=== PATIENT | female | born 1960 | race Caucasian/White ===

== ENCOUNTER → 2016-07-01 | Outpatient (CLI) | payer MEDICARE, MEDICAID ==
[~2016-07-01] MED LIST: AMARYL4 MG PO; COUMADIN4 MG PO; INDOCIN SR75 MG PO; JANTOVEN4 M1 PO; JANTOVEN4 MG PO; LANTUS100 U/ML SC; LASIX20 MG PO; LIDEX 0.05% CRE15 GM T; MEVACOR40 MG PO; MORPHINE 5 MG/10 ML INTRATHEC; MS CONTIN30 MG PO; PREDNISONE20 M1 PO; PRILOSEC10 MG PO; PRINIVIL20 MG PO; REQUIP4 MG PO; SEROQUEL300 MG PO; TEMAZEPAM30 MG PO; VICO75300 PO; VICODIN 5/500 505 M1 PO; ZOLPIDEM10 M1 PO
== END | disposition home or self-care (01) ==
LOC: CT 08:52
DX: J18.9 Pneumonia, unspecified organism (principal); I31.3 Pericardial effusion (noninflammatory); R06.02 Shortness of breath; R05 Cough; R09.89 Other specified symptoms and signs involving the circulatory and respiratory systems; E11.9 Type 2 diabetes mellitus without complications

== ENCOUNTER → 2016-07-21 | Outpatient (CLI) | payer MEDICARE, MEDICAID | END | disposition home or self-care (01) | LOC: RAD 11:10 | DX: J90 Pleural effusion, not elsewhere classified (principal); J18.8 Other pneumonia, unspecified organism; I10 Essential (primary) hypertension; E11.9 Type 2 diabetes mellitus without complications; J45.909 Unspecified asthma, uncomplicated; Z87.891 Personal history of nicotine dependence ==

== ENCOUNTER → 2017-02-12 | Outpatient (CLI) | payer MEDICARE, MEDICAID | END | disposition home or self-care (01) | LOC: MRI 07:55 | DX: M19.072 Primary osteoarthritis, left ankle and foot (principal); M25.572 Pain in left ankle and joints of left foot; M77.52 Other enthesopathy of left foot and ankle; Z91.81 History of falling ==

== ENCOUNTER → 2017-10-07 | Outpatient (CLI) | payer MEDICARE, MEDICAID | END | disposition home or self-care (01) | LOC: MRI 09:41 | DX: S96.812A Strain of other specified muscles and tendons at ankle and foot level, left foot, initial encounter (principal); M72.2 Plantar fascial fibromatosis; X58.XXXA Exposure to other specified factors, initial encounter; Z91.81 History of falling; Y93.89 Activity, other specified; Y92.89 Other specified places as the place of occurrence of the external cause; Y99.8 Other external cause status ==

== ENCOUNTER 2018-08-15 11:28 | Inpatient (IN) | payer MEDICARE ==
[~2018-08-15] VITALS: Ht 144.7 cm; Wt 90.5 kg
--- NOTE | ~2018-08-15 | CON ---
[place], [place] REPORT OF CONSULTATION [id number] UNIT #: [id number] ROOM: 407 DOCTOR: FELIX ELLISON MD BIRTHDATE: [birth year] DOS: 08/16/2018 HISTORY OF PRESENT ILLNESS: This is a 58-year-old patient with Jean tolerance syndrome, factor V Leiden mutation, essential hypertension, type 2 diabetes mellitus, short stature, COPD, who has had respiratory failure, major depression and chronic pain. She has chronic back pain as well. She had a hip and knee replacements done in the remote past. She smoked for 35 years, had quit 5 years ago. She does not use alcoholic beverages. Her father had a heart attack and 2 brothers had heart attack and in their late 30s. I was asked to see her because of slightly increased troponin I level. She came here because of 2 weeks of cough and shortness of breath that was getting worse. She has been coughing, but no expectoration. There is no chest pain or palpitations. She has not passed out and has had mild swelling in the legs in the past. She had no chills, fever or shivering. Appetite is fine. No abdominal pain, nausea or vomiting. HOME MEDICATIONS: Include [place] t.i.d., morphine 30 mg daily and Farxiga 0.5 daily, glimepiride 4 mg daily, lisinopril 20 daily, lovastatin 40 daily, omeprazole 20 daily, Seroquel 600 mg at bedtime, Requip 4 mg daily, Demadex 10 mg p.r.n., Jantoven 8 mg daily and Tresiba 80 units subcutaneously daily. PHYSICAL EXAMINATION: GENERAL: This reveals a patient who is very short, wide neck, alert, oriented, comfortable. She is afebrile. There is no thyromegaly or finger clubbing. VITAL SIGNS: Pulse is regular at 88 beats per minute, blood pressure 99/79. NECK: JVP is normal. There is no carotid bruit. CARDIOVASCULAR: There is no cardiomegaly. LUNGS: Auscultation reveals a loud A2 and there appeared to be a systolic click over the aortic area. EXTREMITIES: There is trace pretibial edema. Pedal pulses are palpable. RESPIRATORY: She has oxygen on and is not tachypneic. Percussion note is normal. Auscultation reveals moderately reduced by breath sounds bilaterally and some rhonchi and some crackles are present. ABDOMEN: Normal bowel sounds. Liver is not enlarged and somewhat protuberant. LABORATORY DATA: An ECG showed normal sinus rhythm with right ventricular hypertrophy and T-wave inversion in V1 to V5 and right axis deviation. Troponin I level has been 0.097, 0.083, 0.086 and in 2003, troponin level was 0.1 x 3. Chest x-ray demonstrated no obvious abnormality. CT scan of the chest demonstrated small pleural effusions, no pneumonia. Sodium 144, potassium 3.6. Normal liver enzymes. Hemoglobin is 10.4 g/dL, MCV is 96. [place], [place] REPORT OF CONSULTATION NAME: HAILEE JARA UNIT #: [id number] ROOM: [facility] DOCTOR: FELIX ELLISON MD BIRTHDATE: [birth year] IMPRESSION: This patient has acute exacerbation of chronic obstructive pulmonary disease and is short of breath. Troponin I level is slightly increased and she had a similar level in 2003 and a stress test a couple of years ago was unremarkable. Right ventricular hypertrophy seemed to be present on the ECG and this obviously raises the possibility of pulmonary hypertension in this patient who has a loud pulmonic component of the aortic sound. My other thought is that there is a possibility of bicuspid aortic valve. She a very strong family history of premature coronary artery disease. I think in the setting of abnormal ECG, slight increased troponin level. It may be a good idea to perform a Lexiscan Cardiolite study. I will review the echocardiogram. I thank you for this consult. FELIX ELLISON MD CM:CONSTR:REPORT OF CONSULTATION 1705 08/17/18 0159 interface RASHMI NICHOLE MD
--- NOTE | ~2018-08-15 | PR ---
[place], [place] PROGRESS NOTE NAME: HAILEE JARA [facility] #: [id number] UNIT #: [id number] ROOM: 407 DOCTOR: FELIX ELLISON MD BIRTHDATE: [birth year] DOS: 08/22/2018 SUBJECTIVE: She has a dry cough, but no chest pain or palpitations. She has been on antibiotics and warfarin was held 2 days ago. She has been eating fine and has been ambulating in the room. PHYSICAL EXAMINATION: GENERAL: This is a patient who is pleasant, alert. Her complexion is fine. VITAL SIGNS: Temperature is normal, pulse is 100 and regular, blood pressure 106/66. NECK: JVP is normal. LUNGS: She has some rhonchi in both lungs with reduced breath sounds. EXTREMITIES: No edema in the lower extremities. INR is 6.9 and it was 3.1 on the . She has significant pulmonary hypertension with a hypokinetic right ventricle. RECOMMENDATIONS: Vitamin K 2.5 mg p.o. should be given and INR should be done tomorrow. If it is less than 5, I will go ahead and do transesophageal echocardiogram on this patient. I discussed this with her nurse. FELIX ELLISON MD CM:PNTRANS 1648 [id number] FELIX ELLISON MD 08/23/18 0031 interface
--- NOTE | ~2018-08-15 | PR ---
[place], [place] PROGRESS NOTE NAME: HAILEE JARA [facility] #: [id number] UNIT #: [id number] ROOM: 407 DOCTOR: FELIX ELLISON MD BIRTHDATE: [birth year] DOS: 08/20/2018 SUBJECTIVE: She feels fairly well. She is not dizzy or weak. She ate fine. She had not been walking that much; however, she has low back pain. She has a harsh cough but without expectoration. PHYSICAL EXAMINATION: GENERAL: The patient is afebrile. VITAL SIGNS: Pulse is 96 regular, blood pressure 109/68. NECK: Normal JVP. EXTREMITIES: No edema in lower extremities. LUNGS: Breath sounds are diminished with some adventitious sounds. LABORATORY DATA: An echo had demonstrated moderately dilated right ventricle and right atrial enlargement, significant pulmonary hypertension. IMPRESSION: This patient has significant pulmonary hypertension and dilated right ventricle and dilated right atrium. She has had Jean syndrome. I think a transesophageal echocardiogram needs to be performed and has been scheduled for the of this month. FELIX ELLISON MD CM:PNTRANS [phone] FELIX ELLISON MD 08/21/18 171 interface
--- NOTE | ~2018-08-15 | PR ---
[place], [place] PROGRESS NOTE NAME: HAILEE JARA [facility] #: [id number] UNIT #: [id number] ROOM: 407 DOCTOR: RASHMI NICHOLE MD BIRTHDATE: [birth year] DOS: LEXISCAN STRESS TEST REASON FOR TESTING AND EVALUATION: Shortness of breath and elevated troponin. PROCEDURE: After explaining procedure and obtaining consent, the patient was subjected to adenosine infusion of 0.4 mg. Resting heart rate was 97 with a blood pressure 120/60. EKG showed sinus rhythm. During the infusion, patient did not have any complaints other than some mild shortness of breath. When the infusion was over, the patient was injected with Cardiolite and stress images were taken. ASSESSMENT AND PLAN: Lexiscan stress test without any ST-T wave changes or arrhythmias. Cardiolite images pending. RASHMI NICHOLE MD CM:PNTRANS 0823 0909 RASHMI NICHOLE MD 08/20/18 0758 SHITAL [email or web address].TM
--- NOTE | ~2018-08-15 | DS ---
[place], [place] DISCHARGE SUMMARY NAME: HAILEE JARA [facility] #: [id number] UNIT #: [id number] ROOM: 407 DOCTOR: RASHMI NICHOLE MD BIRTHDATE: [birth year] DOS: 08/24/2018 DIAGNOSES: 1. Congestive heart failure. 2. Chronic obstructive pulmonary disease exacerbation. 3. Acute respiratory failure. The patient to be placed on oxygen. 4. Adult failure to thrive. 5. Secondary pulmonary hypertension from chronic obstructive pulmonary disease. 6. Moderate tricuspid regurgitation. 7. Type 2 diabetes mellitus, insulin-dependent. 8. Jean syndrome. 9. Chronic pain from primary osteoarthritis, bilateral knee and hip replacements. MEDICATIONS ON DISCHARGE: Ceftin 250 twice daily for 5 days; prednisone twice a day for 5 days; lisinopril, which is decreased to 10 mg daily; glimepiride 4 mg daily; omeprazole 20 daily; Seroquel 600 at bedtime; [place] 7.5 t.i.d. p.r.n.; Requip 4 mg at bedtime; warfarin 8 mg daily; Farxiga 5 mg daily; morphine ER 30 mg daily; lovastatin 40 daily; torsemide 10 daily; insulin 80 units subcutaneous daily. HOSPITAL COURSE: This patient is a 58-year-old right-handed, very well known to us, comes in with complaints of difficulty breathing. Please refer to H and P for details. She was diagnosed with CHF and was admitted. After admission, the patient had a Cardiology consultation, echocardiogram, rule out CA protocol was ordered. The patient had some minimal complaints of precordial chest pain. The stress test was performed because of multiple risk factors. This has come back negative. Echocardiogram showed moderate TR and pulmonary hypertension because of a history of transesophageal echocardiogram was recommended, which was performed by Dr. Mcclain to rule out other congenital abnormalities, none were found. The patient has improved and continues to participate in PT, OT. Social service has been consulted and the patient initially agreed to go to SNF, but since the patient has improved significantly, we could discharge her to home with therapy. Assessment for home O2 was done and the patient will qualify for oxygen 2 liters continuous at home. The patient's repeat chest x-ray is pending today, but clinically her CHF is cleared. Blood sugars have been running on the low side, most likely from a stricter diet here. She will continue her home dose of insulin when she is discharged along with the home medications. The only medication that has cut back is the lisinopril dosage because of low blood pressure. [place], [place] DISCHARGE SUMMARY NAME: HAILEE JARA UNIT #: [id number] ROOM: [facility] DOCTOR: RASHMI NICHOLE MD BIRTHDATE: [birth year] RASHMI NICHOLE MD CM:ISABEL 2 RASHMI NICHOLE MD 08/24/1853 interface
--- NOTE | ~2018-08-15 | ST ---
[place], [place] EXERCISE STRESS TEST REPORT NAME: HAILEE JARA [facility] #: [id number] UNIT #: [id number] ROOM: 407 DOCTOR: RASHMI NICHOLE MD BIRTHDATE: [birth year] DOS: 08/17/2018 LEXISCAN STRESS TEST REASON FOR TESTING AND EVALUATION: Shortness of breath and elevated troponin. PROCEDURE: After explaining procedure and obtaining consent, the patient was injected with regadenoson of 0.4 mg. Resting heart rate was 97 with a blood pressure 120/60. EKG showed sinus rhythm. During the infusion, patient did not have any complaints other than some mild shortness of breath. When the infusion was over, the patient was injected with Cardiolite and stress images were taken. ASSESSMENT AND PLAN: Lexiscan stress test without any ST-T wave changes or arrhythmias. Cardiolite images pending. RASHMI NICHOLE MD CM:STRESS:EXERCISE STRESS TEST REPORT 0823 0909 RASHMI NICHOLE MD
--- NOTE | ~2018-08-15 | PR ---
[place], [place] PROGRESS NOTE NAME: HAILEE JARA [facility] #: [id number] UNIT #: [id number] ROOM: 407 DOCTOR: RASHMI NICHOLE MD BIRTHDATE: [birth year] DOS: 08/17/2018 SUBJECTIVE: The patient is here for a stress test this morning. Appreciate Dr. Mcclain's input. She continues to have a cough and feels tired. OBJECTIVE: GENERAL: She is awake, alert and oriented, mild respiratory distress. VITAL SIGNS: Blood pressure is 98/62, pulse of 100, respirations 20 and temperature 97.9. LUNGS: Diminished breath sounds, scattered wheezes and rhonchi. HEART: Regular. ABDOMEN: Obese, soft. EXTREMITIES: Without any edema. ASSESSMENT AND PLAN: 1. Cough with shortness of breath. CT of the chest showing atelectasis, possibly pneumonia with acute exacerbation of chronic obstructive pulmonary disease. The patient will be placed on IV steroids and breathing treatments in addition to the antibiotics that have been ordered. 2. Elevated troponin with risk factors. She is getting a stress test done this morning. 3. Factor V Leiden mutation, on long-term use of anticoagulants. 4. Type 2 diabetes mellitus. Blood sugars are controlled. We just need to make sure that the steroids do not cause further increase in blood sugars. She is already on insulin and oral antidiabetics. RASHMI NICHOLE MD CM:PNTRANS 0815 0856 RASHMI NICHOLE MD 08/27/18 0842 interface
--- NOTE | ~2018-08-15 | PR ---
[place], [place] PROGRESS NOTE NAME: HAILEE JARA [facility] #: [id number] UNIT #: [id number] ROOM: 407 DOCTOR: HAKEEM VERMA MD BIRTHDATE: [birth year] DOS: 08/18/2018 SUBJECTIVE: The patient with cough and shortness of breath, improving with treatment. OBJECTIVE: GENERAL APPEARANCE: The patient is alert and oriented x 3, in no visible distress. VITAL SIGNS: Blood pressure 110/65, heart rate 98 beats per minute, breathing 18 times per minute, afebrile. HEENT AND NECK: Exam within normal limits. CARDIOVASCULAR SYSTEM: Heart rate is regular in rate and rhythm. S1 and S2 normally audible. LUNGS: Some decreased breath sounds on auscultation. ABDOMEN: Soft, nontender. No obvious organomegaly. Bowel sounds are present. EXTREMITIES: Without significant cyanosis or edema. IMPRESSION: 1. The patient with pneumonia, being treated with antibiotics. 2. Acute exacerbation of chronic obstructive pulmonary disease, treated with corticosteroids, oxygen, and antibiotic. 3. Factor V Leiden mutation, patient on anticoagulation. 4. Type 2 diabetes mellitus. Blood sugars being monitored and treated. The patient remains on insulin. Blood sugars are well controlled and generally ranging between 100-160. HAKEEM VERMA MD CM:PNTRANS 1819 1210 HAKEEM VERMA MD 08/19/18 1517 interface
--- NOTE | ~2018-08-15 | PR ---
[place], [place] PROGRESS NOTE NAME: HAILEE JARA [facility] #: [id number] UNIT #: [id number] ROOM: 407 DOCTOR: FELIX ELLISON MD BIRTHDATE: [birth year] DOS: 08/19/2018 SUBJECTIVE: This patient was admitted with chest pain and shortness of breath. She had quit smoking about 5 years ago. She had a Lexiscan Cardiolite study, which did not demonstrate any ischemia. An echocardiogram was performed during this hospitalization; it demonstrated LV ejection fraction was 65% and grade 1 diastolic dysfunction of the left ventricle. She had severely dilated right ventricle and it was hypokinetic and moderately dilated right ventricle and she had moderate tricuspid regurgitation and pulmonary artery systolic pressure was greater than 60 mm, i.e., severe pulmonary hypertension. IMPRESSION: 1. This patient does not have any significant coronary artery disease, chest pain is noncardiac. 2. She has severe pulmonary hypertension with a hypokinetic right ventricle and moderate tricuspid regurgitation. This patient has Jean syndrome and may have some underlying congenital heart issue. RECOMMENDATIONS: A transesophageal echocardiogram should be considered in this patient and I discussed this procedure with her. She is agreeable to have this done. Hopefully this can be done as an outpatient. FELIX ELLISON MD CM:PNTRANS 1043 FELIX ELLISON MD 08/20/180 interface
--- NOTE | ~2018-08-15 | PR ---
[place], [place] PROGRESS NOTE NAME: HAILEE JARA [facility] #: [id number] UNIT #: [id number] ROOM: 407 DOCTOR: RASHMI NICHOLE MD BIRTHDATE: [birth year] DOS: SUBJECTIVE: The patient is resting comfortably, has not been able to go off the oxygen. OBJECTIVE: VITAL SIGNS: Blood pressure is 122/78, pulse of 86, respirations 16, temperature 97.4. LUNGS: Diminished breath sounds, scattered wheezes. HEART: Regular. ABDOMEN: Obese. EXTREMITIES: Without any edema. ASSESSMENT AND PLAN: 1. Congestive heart failure, improving slowly. Chest x-ray shows resolution. The patient does not have any swelling in the leg. She does have significant pulmonary hypertension. 2. Chest pain, ruled out for myocardial infarction with a negative stress test. 3. Acute exacerbation of chronic obstructive pulmonary disease. The patient continues to have bronchospasm. We will continue steroids. We will do a home O2 assessment. 4. Type 2 diabetes mellitus. Blood sugars are fairly controlled. RASHMI NICHOLE MD CM:PNTRANS 0857 1506 RASHMI NICHOLE MD 08/19/18 1507 interface
--- NOTE | ~2018-08-15 | PR ---
[place], [place] PROGRESS NOTE NAME: HAILEE JARA [facility] #: [id number] UNIT #: [id number] ROOM: 407 DOCTOR: FELIX ELLISON MD BIRTHDATE: [birth year] DOS: 08/21/2018 SUBJECTIVE: She has a little cough and somewhat wheezing, no shortness of breath at rest. She has not had any palpitation, dizziness or swelling of the lower extremity. She has been eating well. OBJECTIVE: GENERAL: She is alert. VITAL SIGNS: Temperature is normal, pulse is 100 and regular, blood pressure 105/54. NECK: JVP is normal. AJR is negative. CARDIOVASCULAR: Auscultation reveals loud P2, no obvious murmurs. IMPRESSION: This patient has significant pulmonary hypertension with dilated right ventricle and right atrium. Transesophageal echocardiogram will be performed to better elucidate the cardiac structures. FELIX ELLISON MD CM:PNTRANS 1821 1452 FELIX ELLISON MD 08/22/18 1451 interface
--- NOTE | ~2018-08-15 | WRIGHTHP ---
[place], [place] PATIENT HISTORY AND PHYSICAL EXAM NAME: HAILEE JARA [facility] #: [id number] UNIT #: [id number] ROOM: 407 DOCTOR: RASHMI NICHOLE MD BIRTHDATE: [birth year] DOS: 08/16/2018 HISTORY OF PRESENT ILLNESS: This patient is very well known to us, comes in with complaints of chest discomfort and shortness of breath. The patient states that she has been sick for about 2 weeks with a cough and is unable to cough up any mucus. She denies having any fever, chills, continued to be short of breath, so finally decided to come into the Emergency Room where she was evaluated and was admitted. She feels bloated and has not been eating and drinking much for the last couple of days also. PAST MEDICAL HISTORY: Significant for: 1. COPD. 2. History of respiratory failure. She is no longer oxygen-dependent. 3. Jean syndrome. 4. Factor V Leiden mutation. 5. Hypertension. 6. Type 2 diabetes mellitus. 7. Major depression, mild. 8. Chronic pain from osteoarthritis. 9. History of hip and knee replacements. MEDICATIONS: Medications that she is currently on are morphine 30 daily, [place] t.i.d. p.r.n. 7.5, Farxiga 5 daily, glimepiride 4 mg daily, lisinopril 20 daily, lovastatin 40 daily, omeprazole 20 daily, Seroquel 600 at bedtime, Requip 4 mg daily, Demadex 10 daily p.r.n., Jantoven 8 mg daily, Tresiba 80 units subcutaneous daily. SOCIAL HISTORY: History of smoking in the past. PHYSICAL EXAMINATION: GENERAL: She is awake and alert and oriented. VITAL SIGNS: Blood pressure is 93/68, pulse of 101, respirations 20, temperature 97.4, very moist sounding cough. LUNGS: Diminished breath sounds, scattered wheezes heard. HEART: Regular. ABDOMEN: Obese, soft, nontender. EXTREMITIES: Without any edema. ASSESSMENT AND PLAN: 1. The patient admitted with shortness of breath and chest pain, rule out myocardial infarction protocol, showed slight elevation in troponin. The patient will have a Cardiology consultation. Obtain echocardiogram ordered. Had a stress test 2 years ago, which was negative. She does have risk factors being a diabetic. 2. Cough. Moist sounding cough with shortness of breath and bronchospasm and underlying respiratory infection, which is most likely responsible for shortness of breath and chest pain. A CT of the chest will be ordered. The patient is placed on IV antibiotics. 3. Factor V Leiden mutation, on Coumadin. Protime subtherapeutic. Extra dose of Coumadin was given. [place], [place] PATIENT HISTORY AND PHYSICAL EXAM NAME: HAILEE JARA UNIT #: [id number] ROOM: [facility] DOCTOR: RASHMI NICHOLE MD BIRTHDATE: [birth year] 4. Type 2 diabetes mellitus. Blood sugars to be checked twice daily, coverage scale ordered. RASHMI NICHOLE MD CM:HISPHYS:PATIENT HISTORY AND PHYSICAL EXAMINATION 2 9 RASHMI NICHOLE MD 08/16/18899 interface
--- NOTE | ~2018-08-15 | PR ---
[place], [place] PROGRESS NOTE NAME: HAILEE JARA [facility] #: [id number] UNIT #: [id number] ROOM: 407 DOCTOR: NELSON STOUT MD BIRTHDATE: [birth year] DOS: 08/24/2018 SUBJECTIVE: A 58-year-old patient underwent transesophageal echo by Dr. Mcclain yesterday. Basically, LEVON was done, showed the left ventricle was normal, right ventricle was moderately dilated, right ventricular hypertrophy, right ventricle was moderately hypokinetic, left ventricular size was normal. Labs are all within normal limits. Ejection fraction 65-70%. Aortic valve was normal in size. Mild tricuspid regurgitation. The patient is doing quite well from the cardiac point of view at this point. Blood pressure is 189/59, heart rate is 98, sinus tachycardia, somewhat feeling better, hemodynamically stable much more stable. REVIEW OF SYSTEMS: A 6-8 systems reviewed as per HPI. OBJECTIVE: VITAL SIGNS: Blood pressure is stable. NECK: Supple, no JVD. LUNGS: Diminished air entry. HEART: Sounds are regular and tachycardic. ABDOMEN: Soft, nontender. NEUROLOGIC: Stable. LABORATORY DATA: Reveal hemoglobin 10.9, hematocrit 39.5. Electrolytes are normal. Calcium is 8.2. IMPRESSION AND PLAN: The patient with acute exacerbation of chronic obstructive pulmonary disease, right ventricular dilatation - probably related to that, history of hypertension, hypotension, diabetes mellitus, Jean syndrome. LEVON showed no significant valvular abnormalities. Continue the Coumadin, keep the INR around 2-3 and we will followup. NELSON STOUT MD CM:PNTRANS 0736 1409 NELSON STOUT MD 08/24/18 1408 interface
--- NOTE | ~2018-08-15 | PR ---
[place], [place] PROGRESS NOTE NAME: HAILEE JARA [facility] #: [id number] UNIT #: [id number] ROOM: 407 DOCTOR: RASHMI NICHOLE MD BIRTHDATE: [birth year] DOS: SUBJECTIVE: The patient is sitting up in chair, not having any complaints, did walk with therapy to the end of the jimenez. She did have oxygen on and did not have any desaturation, but did desaturate off the oxygen. OBJECTIVE: VITAL SIGNS: Graphic trend shows a blood pressure of 118/59, pulse of 115, respirations 18, temperature 97.8. LUNGS: Clear. HEART: Regular. ABDOMEN: Soft. EXTREMITIES: Without any edema. ASSESSMENT AND PLAN: 1. Congestive heart failure, diastolic, acute, resolved. 2. Chronic obstructive pulmonary disease exacerbation, improvement in the bronchospasm. We will discontinue IV steroids and place the patient on p.o. 3. Benign hypertension with pressure is running on the low side. We will cut back on the lisinopril dosage. 4. Chronic respiratory failure, oxygen supplementation has been ordered. 5. Adult failure to thrive. PT, OT will be consulted with visiting nurses for home. 6. Pulmonary hypertension from underlying COPD. The patient was a heavy smoker. 7. Moderate tricuspid regurg was noticed, but no other pathology seen. Discussed with Dr. Silver and Dr. Mcclain. PLAN: Maybe is to do right heart catheterization as an outpatient later on. RASHMI NICHOLE MD CM:PNTRANS [id number] RASHMI NICHOLE MD 08/24/18 1322 interface
--- NOTE | ~2018-08-15 | PR ---
[place], [place] PROGRESS NOTE NAME: HAILEE JARA [facility] #: [id number] UNIT #: [id number] ROOM: 407 DOCTOR: HAKEEM VERMA MD BIRTHDATE: [birth year] DOS: 08/22/2018 SUBJECTIVE: The patient is feeling well, but her blood pressure and blood sugar are both on the lower side, apparently not eating as well. OBJECTIVE: VITAL SIGNS: Blood pressure 106/66, going as low as 77 systolic, heart rate of 106 beats per minute, breathing 20 times per minute, afebrile. GENERAL APPEARANCE: The patient is alert and oriented x 3, in no visible distress. Obesity and generalized weakness. HEENT AND NECK: Exam within normal limits. CARDIOVASCULAR SYSTEM: Heart rate is regular in rate and rhythm. S1 and S2 normally audible. LUNGS: Clear to auscultation. ABDOMEN: Soft, nontender. No obvious organomegaly. Bowel sounds are present. EXTREMITIES: Without significant cyanosis or edema. IMPRESSION: 1. Cardiology workup with LEVON tomorrow by Dr. Mcclain. 2. Acute exacerbation of chronic obstructive pulmonary disease, being treated with bronchodilators, Solu-Medrol, antibiotic with slow improvement. 3. Benign essential hypertension with low blood pressures. The patient was hypotensive, was being treated with lisinopril. 4. Hypotension to be treated with stopping lisinopril. 5. Type 2 diabetes mellitus with hypoglycemia. I am cutting down her Lantus insulin from 80 to 40 units only. 6. Patient has Jean syndrome, getting a LEVON performed. The patient had a tricuspid valve regurgitation and pulmonary hypertension. Dr. Mcclain, the molding supervisor is following. 7. Elevated INR. Coumadin is on hold and protimes are being monitored daily. No signs of any bleeding. HAKEEM VERMA MD CM:PNTRANS [phone] HAKEEM VERMA MD 08/23/18 0828 interface
--- NOTE | ~2018-08-15 | PR ---
[place], [place] PROGRESS NOTE NAME: HAILEE JARA [facility] #: [id number] UNIT #: [id number] ROOM: 407 DOCTOR: HAKEEM VERMA MD BIRTHDATE: [birth year] DOS: 08/21/2018 SUBJECTIVE: The patient is still short of breath, although says breathing is somewhat improving. OBJECTIVE: GENERAL APPEARANCE: The patient is alert and oriented x 3, in no visible distress. VITAL SIGNS: Blood pressure 110/80, heart rate of 92 beats per minute, breathing 18-20 times per minute, afebrile. Obesity. HEENT AND NECK: Exam within normal limits. CARDIOVASCULAR SYSTEM: Heart rate is regular in rate and rhythm. S1 and S2 normally audible. LUNGS: Somewhat decreased breath sounds all over and slight wheezing. ABDOMEN: Soft, nontender. No obvious organomegaly. Bowel sounds are present. EXTREMITIES: Without significant cyanosis or edema. IMPRESSION: 1. Acute exacerbation of chronic obstructive pulmonary disease being treated with Solu-Medrol, antibiotics, bronchodilators with slow improvement. 2. Acute hypoxemic respiratory failure, being treated as mentioned above, the patient on oxygen. 3. Adult failure to thrive. The patient is waiting to go to rehab. 4. Type 2 diabetes mellitus. Blood sugars are being monitored and controlled. 5. The patient with Jean syndrome and echocardiogram showing tricuspid valve regurgitation and pulmonary hypertension. Dr. Mcclain, the retail assistant is following. 6. INR elevated to 5.7. Coumadin on hold, protime is being monitored daily. HAKEEM VERMA MD CM:PNTRANS [phone] HAKEEM VERMA MD 08/22/18 1309 interface
--- NOTE | ~2018-08-15 | PR ---
[place], [place] PROGRESS NOTE NAME: HAILEE JARA [facility] #: [id number] UNIT #: [id number] ROOM: 407 DOCTOR: RASHMI NICHOLE MD BIRTHDATE: [birth year] DOS: SUBJECTIVE: The patient had a very rough night because her blood sugars were dropping. OBJECTIVE: GENERAL: This morning, she is in bed, in no distress. VITAL SIGNS: Blood pressure is 108/68, pulse of 116, respirations 18, temperature 98.3. LUNGS: Diminished breath sounds, a few scattered rhonchi which is considerably better than Thursday. HEART: Tachycardic. ABDOMEN: Obese. EXTREMITIES: Without any edema. ASSESSMENT AND PLAN: 1. Pulmonary hypertension with tricuspid regurgitation, awaiting a transesophageal echocardiogram today. 2. Acute exacerbation of chronic obstructive pulmonary disease, on maximal dose of medications with improvement. 3. Adult failure to thrive. The patient did not want to go to a rehab facility. She would rather go home. 4. Type 2 diabetes mellitus. Blood sugars on the low side. We will cut back on the dosage of medications. 5. Benign hypertension, controlled. RASHMI NICHOLE MD CM:PNTRANS [id number] RASHMI NICHOLE MD 08/23/18 1318 interface
--- NOTE | ~2018-08-15 | PR ---
[place], [place] PROGRESS NOTE NAME: HAILEE JARA [facility] #: [id number] UNIT #: [id number] ROOM: 407 DOCTOR: FELIX ELLISON MD BIRTHDATE: [birth year] DOS: 08/23/2018 SUBJECTIVE: The patient had a transesophageal echocardiogram performed. It demonstrated a normal aortic valve, which was trileaflet. Normal ascending aorta and normal size descending thoracic aorta with minimal atherosclerotic abnormality. Tricuspid valve is normal, mild tricuspid regurgitation was present. There was mild right atrial enlargement and moderate right ventricle enlargement with hypokinesia. Mild pulmonic regurgitation was also seen. FELIX ELLISON MD CM:PNTRANS [id number] FELIX ELLISON MD 08/24/18 0319 interface
--- NOTE | ~2018-08-15 | PR ---
[place], [place] PROGRESS NOTE NAME: HAILEE JARA [facility] #: [id number] UNIT #: [id number] ROOM: 407 DOCTOR: RASHMI NICHOLE MD BIRTHDATE: [birth year] DOS: SUBJECTIVE: The patient tried to do an assessment of home O2, but she was really short of breath and was unable to ambulate. This morning, she is feeling fairly good, does not have any complaints, still has a moist sounding cough. OBJECTIVE: VITAL SIGNS: Blood pressure is 140/78, pulse of 102, respirations 18, and temperature 97.7. LUNGS: Diminished breath sounds, scattered wheezes and rhonchi. HEART: Regular. ABDOMEN: Obese, soft. EXTREMITIES: Without any edema. ASSESSMENT AND PLAN: 1. Acute exacerbation of chronic obstructive pulmonary disease. Continue to have bronchospasm. She is on breathing treatments. Increase the dose of the IV Solu-Medrol and add Pulmicort. 2. Acute hypoxic respiratory failure. Continue oxygen supplementation, will require oxygen as an outpatient, but before that she will be sent to a rehab. 3. Malaise with adult failure to thrive, will require short-term placement to rehab. The patient is agreeable. Social service has been consulted. 4. Type 2 diabetes mellitus. Blood sugars controlled. 5. Jean syndrome with echocardiogram showing tricuspid regurg and pulmonary hypertension. Dr. Mcclain suggested a LEVON. We will ask him whether this could be performed on Thursday before the patient can be discharged to a correction. RASHMI NICHOLE MD CM:PNTRANS [phone] RASHMI NICHOLE MD 08/20/18 1416 interface
--- NOTE | ~2018-08-15 | EKG ---
[place], [place] ELECTROCARDIOGRAM REPORT NAME: HAILEE JARA UNIT #: [id number] ROOM: 407 DOCTOR: SHEREE DRAFT REPORT BIRTHDATE: [birth year] [facility] Test Date: 2018-08-15 Test Time: 12:16:21 Pat Name: HAILEE JARA Department: Room: 407 Gender: F Control Operator Flow Coat: Mariela Saha : 1960 Requested By: NAYE ALVARADO Order Number: [id number] Reading MD: Te Mcclain MD Measurements Intervals [place] Rate: 103 P: 41 CA: 164 QRS: 157 QRSD: 92 T: -16 QT: 387 QTc: 507 Interpretive Statements Sinus tachycardia RVH with secondary repolarization abnrm Borderline prolonged QT interval Baseline wander in lead(s) II,III,aVR,aVF Electronically Signed On 08-17-2018 15:01:48 PST by Te Mcclain MD CM:EKGRPT:ELECTROCARDIOGRAM REPORT [id number] NAYE NAIDU DRAFT REPORT NAYE ALVARADO DO
--- NOTE | ~2018-08-15 | PR ---
[place], [place] PROGRESS NOTE NAME: HAILEE JARA [facility] #: [id number] UNIT #: [id number] ROOM: 407 DOCTOR: FELIX ELLISON MD BIRTHDATE: [birth year] DOS: 08/17/2018 SUBJECTIVE: She is doing fine. She has no chest pain or breathing difficulty. She has chronic back pain that limits her mobility. She had a Lexiscan Cardiolite study done today and I will review the images. She also is to have an echocardiogram. IMPRESSION: The patient has chest pain with many risk factors for coronary artery disease. She has ruled out for an acute myocardial infarction. Images will be reviewed. FELIX ELLISON MD CM:PNTRANS [phone] FELIX ELLISON MD 08/18/18 0308 interface
[~2018-08-15 11:28] MED LIST changes: +NORCO 7.5-3251 EACH PO; -PRILOSEC10 MG PO; +PRILOSEC20 M1 PO; +PRINIVIL20 M1 PO; -PRINIVIL20 MG PO; -VICO75300 PO
[2018-08-15 11:32] VITALS: BP 99/55
[2018-08-15 12:02] VITALS: BP 99/77
--- NOTE | 2018-08-15 12:22 | NUR ---
PATIENT STATES SHE WAS NEVER TAKEN OFF OXYGEN AT NIGHT SHE JUST FELT THAT SHE DIDN'T NEED IT ANYMORE BECAUSE SHE WAS A SHALLOW BREATHER
[2018-08-15 12:32] LABS: BASO % 0.6 % (0.0-1.0); HEMATOCRIT 34.4 % (37.0-47.0); HEMOGLOBIN 10.4 g/dl (12.0-16.0); LYMPH # 0.5 10*3/uL (1.3-4.4); MEAN CELL VOLUME 96.1 fl (81.0-99.0); MEAN CORPUSCULAR HGB 29.1 pg (27.0-31.0); MEAN CORPUSCULAR HGB CONC 30.2 g/dl (33.0-37.0); MEAN PLATELET VOLUME 11.7 fl (9.6-12.3); MONO # 0.3 10*3/uL (0.1-1.0); NEUT # 2.8 10*3/uL (2.3-7.9); NEUT % 77.8 % (47.0-73.0); PLATELET COUNT AUTOMATED 109 10*3/uL (130-400); RED BLOOD COUNT 3.58 10*6/uL (4.10-5.10); RED CELL DISTRI WIDTH 15.4 % (0-14.5); WHITE BLOOD COUNT 3.6 10*3/uL (4.8-10.8)
--- NOTE | 2018-08-15 12:37 | NUR ---
PT WITH SAO2 @ 84-86% RA AFTER AEROSOL TX AND O2 3L VIA NC REAPPLIED AND DR MEHTA NOTIFIED.
[2018-08-15 12:44] LABS: ALBUMIN 3.2 gm/dl (3.1-4.5); ALKALINE PHOSPHATASE 81 U/L (45-117); BUN 22 mg/dl (7-24); CHLORIDE 109 mmol/L (98-107); CREATININE 0.88 mg/dL (0.55-1.02); POTASSIUM 3.6 mmol/L (3.5-5.1); SGOT/AST 17 IU/L (3-35); SGPT/ALT 28 U/L (12-78); SODIUM 144 mmol/L (136-145); TOTAL PROTEIN 7.3 gm/dL (6.4-8.2)
[2018-08-15 13:07] LABS: ABG BASE EXCESS 0.4 mmol/L (-2.0-2.0); ABG HCO3 25.1 mmol/l (22-26); ABG O2 SATURATION 95.6 % (95-97); ARTERIAL BLOOD GAS PCO2 42.7 mmHg (35-45); ARTERIAL BLOOD GAS PH 7.385 (7.35-7.45); ARTERIAL BLOOD GAS PO2 84.1 mmHg (80-90)
[2018-08-15 13:09] LABS: INTERNATIONAL NORM RATIO 1.7 (2.0-3.5)
[2018-08-15 13:30] LABS: BILIRUBIN NEGATIVE (NEGATIVE); BLOOD 2+ (NEGATIVE); CLARITY SL CLOUDY (CLEAR); COLOR YELLOW (YELLOW); GLUCOSE 3+ (NEGATIVE); KETONE NEGATIVE (NEGATIVE); LEUKO ESTERASE NEGATIVE (NEGATIVE); NITRITE NEGATIVE (NEGATIVE)
[2018-08-15 13:38] LABS: BACTERIA 1+; EPITHELIAL CELLS 21-30; RBC 16-20 rbc/hpf (0-2)
[2018-08-15] MEDS ORDERED: TRESIBA FL100 UNIT/1 SQ (13:38)
[2018-08-15] MEDS ORDERED: FARXIGA5 M1 PO (13:40)
--- NOTE | 2018-08-15 13:48 | NUR ---
PT REMAINS W/O ACUTE DISTRESS NOTED AWAITING ALL RESULTS FOR ADDITIONAL PLAN OF CARE,FAMILY @ BEDSIDE,SAFETY PRECAUTIONS INTACT AND CALL LIGHT WITHIN REACH. NO ADDITIONAL COMPLAINTS VOICED.
[2018-08-15 13:52] VITALS: BP 96/59
--- NOTE | 2018-08-15 13:58 | NUR ---
KERRY @ 0.[address] MEHTA NOTIFIED.
[2018-08-15] MEDS ORDERED: AMBIEN10 M1 PO (13:59)
--- NOTE | 2018-08-15 14:55 | NUR ---
A 58, admitted to , under the services of RASHMI White MD with a diagnosis of CHF. Chief complaint is SHORTNESS OF BREATH. Patient arrived via stretcher from ER. Monitor applied. Initial assessment completed. Vital signs taken and recorded. RASHMI WHITE MD notified of admission to the unit. Orders received. See assessment for past medical history, medications and allergies. Patient and/or family oriented to unit. [address] visitation policy reviewed. Clothing/patient valuable form completed. CHADD CUELLAR
[2018-08-15] MEDS ORDERED: MORPHINE SULFAT30 M9 PO (15:27)
[2018-08-15] MEDS ORDERED: LOVASTATIN40 MG PO (15:30)
[2018-08-15] MEDS ORDERED: DEMADEX10 M1 PO (15:31)
[2018-08-15] MEDS ORDERED: TRESIBA FL200 UNIT/1 SQ (15:32)
[2018-08-15 16:00] VITALS: BP 105/78
--- NOTE | 2018-08-15 16:10 | NUR ---
DR ELLISON CALLED VIA ANSWERING SERVICE, NO ANSWER/NO VOICEMAIL. ANSWERING SERVICE STATES SHE WILL CONTINUE TO CALL HIM.
--- NOTE | 2018-08-15 16:43 | NUR ---
DR ELLISON NOTIFIED OF CONSULT. HE WILL SEE HER TOMORROW
[2018-08-15 20:00] VITALS: BP 124/69
--- NOTE | 2018-08-15 20:02 | NUR ---
DR. NICHOLE WAS NOTIFIED OF PTS CRITICAL MARCO TROP OF 0.083.
[2018-08-16] VITALS: BP 135/92
[2018-08-16 08:00] VITALS: BP 93/68; BP 98/64
--- NOTE | 2018-08-16 09:56 | NUR ---
echo at bedside
--- NOTE | 2018-08-16 10:30 | NUR ---
Assistant Front End Manager in to see patient. She is currently on the BSC and request CM come back at a later time. Will follow up at a later time.
[2018-08-16 12:00] VITALS: BP 93/77
--- NOTE | 2018-08-16 14:10 | NUR ---
Brim Shaper in to see patient. She is currently getting a bed bath. Will follow up at a later time.
--- NOTE | 2018-08-16 14:35 | NUR ---
Wireline Supervisor in to talk to patient. Patient states lives at home with her sister. There are basement steps in the home. Physician: Dr. Oksana Gusman Pharmacy: [facility] Home health services: none Patient's level of ADLs: MINIMAL ASSIST Patient has working utilities: yes DME: cane, walker Follow-up physician's appointment after d/c: she prefers to make her own follow up appt after discharge Does patient want to access PORTAL?: no Discharge plan discussed with patient. She lives at home with her sister. She is independent in her ADLs and ambulates with either a cane or a walker. She would like a new walker as the one she currently has doesn't like to fold up anymore. Discussed home health care services and she denies any home needs at this time. She has had [facility] previously. When medically stable she will be discharged to home. LUCINDA GLASS
[2018-08-16 16:00] VITALS: BP 99/79
--- NOTE | 2018-08-16 17:31 | NUR ---
PT HAD LOW BLOOD SUGAR, GIVEN JUICE, HAS DINNER ORDERED
[2018-08-16 20:00] VITALS: BP 116/68
--- NOTE | 2018-08-16 22:15 | NUR ---
NORCO EFFECTIVE FOR 8 OUT OF 10 PAIN IN HIP. PT RESTING COMFORTABLY.
[2018-08-17] VITALS: BP 98/62
--- NOTE | 2018-08-17 06:34 | NUR ---
50% DEXTROSE 25G IV GIVEN FOR LOW BLOOD SUGAR OF 64. WILL REASSESS.
--- NOTE | 2018-08-17 08:22 | NUR ---
Metal Precision Machine Assembler in to see patient. She is currently not in her room. Will follow up at a later time.
--- NOTE | 2018-08-17 08:23 | NUR ---
INFORMED CONSENT SIGNED FOR LEXISCAN STRESS TEST WITH DR. NICHOLE. RESTING EKG NSR WITH PVC, HR 97, BP 120/60. PULSE OX 97% AND RHONCHI NOTED BILATERALLY WITH EXSPIRATORY WHEEZES. COMPLETED ONE MINUTE OF LEXISCAN PROTOCOL RECEIVING LEXISCAN 0.4MG OVER 10 SECONDS. NO ARRHYTHMIAS OR ST CHANGES NOTED. PT C/O SOB. LAST RECOVERY HR 99, BP 118/60. WAITING NUCLEAR SCANNINGIN STABLE CONDITION.
[2018-08-17 09:36] VITALS: BP 175/80
--- NOTE | 2018-08-17 09:49 | NUR ---
RETURN FROM STRESS TEST
[2018-08-17 10:54] VITALS: BP 114/78
--- NOTE | 2018-08-17 10:55 | NUR ---
sao2 100 % on 3 liters nc, no shortness of breath noted, decreased oxygen to 2 liters
--- NOTE | 2018-08-17 11:25 | NUR ---
IV IN RIGHT FA LEAKING, RED AT SITE. RIGHT IV D/C LEFT FA #22 STARTED ON FIRST ATTEMPT, GOOD BLOOD RETURN, FLUSHES WELL
[2018-08-17 12:00] VITALS: BP 103/50
[2018-08-17 16:00] VITALS: BP 121/63
[2018-08-17 20:00] VITALS: BP 107/62
--- NOTE | 2018-08-17 22:05 | NUR ---
SCHEDULED NORCO GIVEN FOR 6/10 PAIN IN LEFT HIP. WILL REASSESS.
--- NOTE | 2018-08-17 22:45 | NUR ---
NORCO EFFECTIVE FOR PAIN. PATIENT RESTING COMFORTABLY.
[2018-08-18] VITALS: BP 106/65
--- NOTE | 2018-08-18 03:23 | NUR ---
24 HR chart check completed.
[2018-08-18 08:00] VITALS: BP 110/58
--- NOTE | 2018-08-18 09:00 | NUR ---
Copying Machine Repairer in to see patient. No new needs or request at this time. She denies any home needs. When medically stable she will be discharged to home.
[2018-08-18 12:00] VITALS: BP 103/66
[2018-08-18 16:00] VITALS: BP 110/65
[2018-08-18 20:00] VITALS: BP 106/58
[2018-08-19] VITALS: BP 129/65
[2018-08-19 06:46] LABS: INTERNATIONAL NORM RATIO 3.1 (2.0-3.5)
[2018-08-19 08:00] VITALS: BP 122/78
[2018-08-19 12:00] VITALS: BP 105/68
--- NOTE | 2018-08-19 13:47 | NUR ---
PULSE OX ON R/A AT REST 87%, PULSE OX ON 2LM AT REST 96%. PT. AMBULATED APPRX. 80 FEET, PULSE OX 93 ON 2L WITH AMBULATION. . PT. WAS UNABLE TO WALK ANY LONGER DUE TO SOB. PT. NEEDED TO STOP AND REST DURING THIS WALK. RN AND CASE MANAGEMENT NOTIFIED. RECOVERY PULSE OX 94 ON 2L AT REST. B/P 105/68 PRIOR TO AMBULATION AND 99/62. HEART RATE 105 AND 106 .
[2018-08-19 16:00] VITALS: BP 106/62
[2018-08-19 16:55] VITALS: BP 106/64
--- NOTE | 2018-08-19 18:18 | NUR ---
Pt states she had a small emesis after being nauseated for awhile. States she also started having diarrhea. States this is the first time she has been nauseated or had diarrhea since admission. States she feels like her blood sugar may be low. Checked BSG and it was 101. Called Dr. Mae and notified of pt statements. Dr. Mae states he is here and will put in orders for zofran.
--- NOTE | 2018-08-19 18:57 | NUR ---
Medicated with zofran iv per prn order.
[2018-08-19 20:00] VITALS: BP 110/65
--- NOTE | 2018-08-19 21:08 | NUR ---
DR VERMA NOTIFIED PT C/O DIARRHEA WITH 3 EPISODES IN 2 HOURS. NEW ORDERS REC'D.
[2018-08-20] VITALS: BP 97/50
[2018-08-20 08:00] VITALS: BP 140/78
--- NOTE | 2018-08-20 09:00 | NUR ---
Prevention Specialist in to see patient. Discussed short term SNF and she is agreeable. When given a list of facilities she chose [facility]. information systems planner notified.
--- NOTE | 2018-08-20 11:20 | NUR ---
Occupational Therapy evaluation completed on 4 with full eval to follow. Precautions include fall risk,new ww use,IV UE,new O2 use,patient is moderate complexity level 12131 via chart review, testing and evaluation. Recommend OT per POC and SNF upon d/c to enable return home at indep level. Thank you for this referral. Andreea Cisneros OTR/l
[2018-08-20 12:00] VITALS: BP 109/68
--- NOTE | 2018-08-20 12:13 | NUR ---
PHYSICAL THERAPY PAtient evaluiated on 4, full evaluation to follow. Continue with PT as per plan of care with fall, new 02, min (A) and acute debility prcautions. Will require SNF. PAtient is moderate complexity via chart review, tests and evaluation: 19529, Thank you for this referral. Rachel García,PT
--- NOTE | 2018-08-20 14:07 | NUR ---
Patient requesting a referral to [facility], contacted facility and faxed referral. Waiting on review/acceptance. Will require precert.
--- NOTE | 2018-08-20 14:57 | NUR ---
SPOKE TO DR ELLISON REGARDING LEVON FOR THURSDAY. HE STATED TO PUT ORDERS IN FOR LEVON THURSDAY AT 1100. SPOKE TO HARI AND SHE SAID IT SHOULD NOT BE A PROBLEM
[2018-08-20 16:00] VITALS: BP 96/60
[2018-08-20 20:00] VITALS: BP 109/68
--- NOTE | 2018-08-20 20:00 | NUR ---
AAOX3 RESTING IN BED WITH HOB ELEVATED. 02 INTACT AT 2LPM VIA N/C; PULSE OX 97%. PT. VOICES NO C/O AT THIS TIME. NO DISTRESS NOTED. CALL LIGHT WITHIN REACH.
--- NOTE | 2018-08-20 22:00 | NUR ---
TOOK PO MEDICATIONS WITHOUT DIFFICULTY. BLOOD SUGAR 85; NO COVERAGE REQUIRED. CALL LIGHT WITHIN REACH.
[2018-08-21] VITALS: BP 106/59
--- NOTE | 2018-08-21 06:30 | NUR ---
BLOOD SUGAR 95; NO COVERAGE REQUIRED.
[2018-08-21 07:20] LABS: BASO % 0.2 % (0.0-1.0); HEMATOCRIT 40.7 % (37.0-47.0); HEMOGLOBIN 12.5 g/dl (12.0-16.0); LYMPH # 0.5 10*3/uL (1.3-4.4); LYMPH % 9.2 % (27.0-41.0); MEAN CELL VOLUME 92.7 fl (81.0-99.0); MEAN CORPUSCULAR HGB 28.5 pg (27.0-31.0); MEAN CORPUSCULAR HGB CONC 30.7 g/dl (33.0-37.0); MEAN PLATELET VOLUME 10.7 fl (9.6-12.3); MONO # 0.3 10*3/uL (0.1-1.0); MONO % 6.4 % (3.0-9.0); NEUT # 4.2 10*3/uL (2.3-7.9); NEUT % 83.4 % (47.0-73.0); PLATELET COUNT AUTOMATED 146 10*3/uL (130-400); RED BLOOD COUNT 4.39 10*6/uL (4.10-5.10); RED CELL DISTRI WIDTH 14.9 % (0-14.5)
[2018-08-21 07:48] LABS: BUN 22 mg/dl (7-24); CHLORIDE 103 mmol/L (98-107); POTASSIUM 3.9 mmol/L (3.5-5.1); SODIUM 136 mmol/L (136-145)
[2018-08-21 07:49] LABS: CREATININE 0.65 mg/dL (0.55-1.02)
[2018-08-21 08:00] VITALS: BP 110/80
[2018-08-21 08:08] LABS: INTERNATIONAL NORM RATIO 5.7 (2.0-3.5)
--- NOTE | 2018-08-21 08:41 | NUR ---
NOTIFIED REGARDING CRITICAL PT/INR. HOLD COUMADIN AT THIS TIME.
[2018-08-21 12:00] VITALS: BP 98/65
--- NOTE | 2018-08-21 14:52 | NUR ---
IN TO SEE PATIENT.
[2018-08-21 16:00] VITALS: BP 105/54
--- NOTE | 2018-08-21 19:02 | NUR ---
SITTING UP ON SIDE OF BED AT THIS TIME. NO NEEDS OR CONCERNS. O2 VIA NC IN USE. BED IS IN LOWEST POSITION WITH WHEELS LOCKED. CALL LIGHT IS WITHIN REACH. ENCOURAGED TO USE CALL LIGHT FOR NEEDS.
[2018-08-21 20:00] VITALS: BP 92/59
[2018-08-21 20:12] VITALS: BP 102/54
[2018-08-22] VITALS: BP 123/74
--- NOTE | 2018-08-22 01:07 | NUR ---
RESTING IN BED WITH EYES CLOSED. RESPIRATIONS ARE EASY AND REGULAR. NO DISTRESS IS NOTED. O2 VIA NC IN USE. CALL LIGHT IS WITHIN REACH. WILL CONTINUE TO MONITOR.
[2018-08-22 08:00] VITALS: BP 106/66
[2018-08-22 13:52] LABS: INTERNATIONAL NORM RATIO 6.9 (2.0-3.5)
--- NOTE | 2018-08-22 13:58 | NUR ---
NOTIFIED REGARDING CRITICAL PT/INR. NEW ORDERS RECEIVED.
[2018-08-22 16:00] VITALS: BP 78/52
--- NOTE | 2018-08-22 16:19 | NUR ---
BLOOD SUGAR READING CRITICAL LOW. STAT REFLEX ORDERED. CRACKERS AND JUICE PROVIDED.
--- NOTE | 2018-08-22 16:41 | NUR ---
IN TO SEE PATIENT.
--- NOTE | 2018-08-22 17:00 | NUR ---
UNABLE TO REASSESS PT AT THIS TIME FOR HOME O2. BP AND GLUCOSE LOW. RNS AT BEDSIDE.
--- NOTE | 2018-08-22 17:36 | NUR ---
IN TO SEE PATIENT. BP READING 78/52 MANUALLY. PT ASYMPTOMATIC. WILL RECHECK BP. NEW ORDERS TO BE ENTERED PER PHYSICIAN.
[2018-08-22 18:23] VITALS: BP 100/64
--- NOTE | 2018-08-22 18:31 | NUR ---
PT RESTING QUIETLY IN BED. RESPIRATIONS EASY, REGULAR. 02 IN USE. ATE DINNER. BP 100/64. WILL CONTINUE TO MONITOR. CALL LIGHT WITHIN REACH.
--- NOTE | 2018-08-22 19:02 | NUR ---
PATIENT RESTING IN BED RECIEVING BREATHING TREATMENT AT THIS TIME. CURRENTLY DENIES ANY NEEDS OR COMPLAINTS. BED IS IN LOWEST POSTIION WITH WHEELS LOCKED. CALL LIGHT IS WITHIN REACH. ENCOURAGED TO USE CALL LIGHT FOR NEEDS. WILL CONTINUE TO MONITOR.
[2018-08-22 20:00] VITALS: BP 112/72
--- NOTE | 2018-08-22 22:17 | NUR ---
SPOKE WITH DR VERMA REGARDING PATIENT COMPLAINTS OF ABDOMINAL CRAMPING AND NAUSEA UNRELIEVED BY ZOFRAN. PER DR VERMA PLACE ORDERS FOR BENTYL 20MG PO QID PRN. ORDERS WERE READ BACK TO DR VERMA AND VERIFIED.
--- NOTE | 2018-08-22 22:28 | NUR ---
PRN BENTYL GIVEN FOR COMPLAINTS OF ABDOMINAL CRAMPING. WILL EVALUATE EFFECTIVENESS. PRN DEXTROSE ALSO GIVEN AT THIS TIME FOR BLOOD GLUCOSE OF 68. PATIENT HAS LITTLE PO INTAKE D/T ABDOMINAL CRAMPING AND NPO AFTER MIDNIGHT. WILL RECHECK BLOOD GLUCOSE.
--- NOTE | 2018-08-22 23:35 | NUR ---
PER PATIENT ABDOMINAL CRAMPING HAS IMPROVED. NO FUTHER NEEDS. BLOOD GLUCOSE AT THIS TIME 119. WILL CONTINUE TO MONITOR.
[2018-08-23] VITALS (8 sets, daily range): BP systolic 84–115; BP diastolic 37–72
[2018-08-23 06:29] LABS: INTERNATIONAL NORM RATIO 3.5 (2.0-3.5)
--- NOTE | 2018-08-23 09:00 | NUR ---
Alloy Weigher in to see patient. No new needs or request at this time. When medically stable and auth is received she will be discharged to [facility]. data recovery planner following.
--- NOTE | 2018-08-23 09:15 | NUR ---
OT NOTE Pt was seen this A.M. 1:1 for 20 minute OT session. Upon arrival pt was supine in bed, pt identified by name and and had complaints of increased fatigue. Pt presented to therapy with continous 1L-O2 via NC which she remained on throughout entire session. Pt transferred supine to sit EOB with Marquez for assist with UB. While sitting EOB requested for to erin B socks. Pt stated she was unable to bend forward and complete. Educated pt on compensatory technique of bringing her leg over knee or up to bed level and dressing there. Pt was able to complete with LLE by bringing up to bed level with SBA however with the RLE pt required Marquez due to limited ROM in R knee from "previous knee replacement" pt stated. Sit to stand completed from bed level with Marquez for UE support. While standing pt donned gown with Marquez and had one LOB that occured backwards from being unsteady that was corrected with Marquez. Functional mobility completed into the bathroom with Marquez COMIC ILLUSTRATOR, there she transferred on/off standard commode with CGA and use of grab bar for UE support. Throughout pt was educated on breathing techniques to avoid becoming SOB. Pt returned to the EOB where she doffed gown while standing with Marquez. Pt transferred sit to supine with Marquez. There she was left with call light in hand, tray table in place, and phone in reach. Continue with rec D/C plan to SNF. NICKI Kemp/Kaitlynn
--- NOTE | 2018-08-23 09:30 | NUR ---
PHYSICAL THERAPY Patient presented to therapy in supine with head of bed slightly elevated. Patient is on 1 liters of spO2 via nasal canula. Patient agrees to therapy session. Patient was identified by name and . Patient performed supine to sitting at EOB transfer with MIN A X 1. Patient transferred STS with MIN A X 1. Patient ambulated with W/W and MIN A X 1 for 50' x 1 with no LOB and minimal SOB. Patient sat on EOB and performed seated bilateral LE ther ex 2 x 10 reps each in all planes of movement for strengthening the LEs in order to improve patient's functional mobility. Patient transferred back to supine in bed with MIN A X 1. Patient was left in supine in bed wit hhead of bed elevated, call light within reach, and bed alarm activated. CACERES witness to bed alarm being activated. Patient was 1:1 with this QUALITY ASSURANCE ANALYST for 21 minutes total. KAYLA DE OLIVEIRA QUALITY ASSURANCE ANALYST
--- NOTE | 2018-08-23 10:17 | NUR ---
PATIENT OFF FLOOR FOR LEVON
--- NOTE | 2018-08-23 10:36 | NUR ---
Patient updated clinicals, PT/OT notes faxed to Marilu at [facility] for precert. Waiting for auth.
--- NOTE | 2018-08-23 13:48 | NUR ---
PHYSICAL THERAPY Patient just came back from medical procedure and is waiting on her lunch. Patient wants therapy to comeback later. Will check back later today or on a later date. KAYLA DE OLIVEIRA DIRECTOR ECONOMIC
--- NOTE | 2018-08-23 15:34 | NUR ---
PHYSICAL THERAPY Patient presented to therapy in sitting at EOB with report of feeling tired but she says she is willing to walk. Patient agrees to therapy session. Patient was identified by name and . Patient performed STS transfer with MIN A X 1. Patient performed gait with IV POLE and 4 LITERS OF spO2 via nasal canula and CGA X 1 for 50' x 1. Patient had 1 LOB with gait, while turning to the Right ,which required MIN A X 1 to correct. Patient sat on EOB and and was left there with call light within reach, connected to wall outlet with 4 liters of spO2, and tray table near patient. Patient was 1:1 with this PERFECT BINDER FEEDER OFFBEARER for 12 minutes total. KAYLA DE OLIVEIRA PERFECT BINDER FEEDER OFFBEARER
--- NOTE | 2018-08-23 23:09 | NUR ---
SPOKE WITH DR NICHOLE REGARDING PATIENT SCHEDULED NORCO NO LONGER ON PATIENT MAR. PER DR NICHOLE OK TO REORDER.
[2018-08-24] VITALS: BP 118/59
--- NOTE | 2018-08-24 01:42 | NUR ---
PATIENT RESTING IN BED ON RIGHT SIDE WITH EYES CLOSED. RESPIRATIONS ARE EASY AND REGULAR. NO DISTRESS IS NOTED. CALL LIGHT IS WITHIN REACH. WILL MONITOR.
[2018-08-24 05:59] LABS: BASO % 0.4 % (0.0-1.0); HEMATOCRIT 34.7 % (37.0-47.0); HEMOGLOBIN 10.9 g/dl (12.0-16.0); LYMPH # 0.6 10*3/uL (1.3-4.4); LYMPH % 10.9 % (27.0-41.0); MEAN CELL VOLUME 90.8 fl (81.0-99.0); MEAN CORPUSCULAR HGB 28.5 pg (27.0-31.0); MEAN CORPUSCULAR HGB CONC 31.4 g/dl (33.0-37.0); MEAN PLATELET VOLUME 11.5 fl (9.6-12.3); MONO # 0.3 10*3/uL (0.1-1.0); MONO % 5.3 % (3.0-9.0); NEUT # 4.6 10*3/uL (2.3-7.9); NEUT % 81.3 % (47.0-73.0); PLATELET COUNT AUTOMATED 123 10*3/uL (130-400); RED BLOOD COUNT 3.82 10*6/uL (4.10-5.10); RED CELL DISTRI WIDTH 14.7 % (0-14.5); WHITE BLOOD COUNT 5.7 10*3/uL (4.8-10.8)
[2018-08-24 06:02] LABS: BUN 23 mg/dl (7-24); CHLORIDE 105 mmol/L (98-107); CREATININE 0.55 mg/dL (0.55-1.02); POTASSIUM 4.4 mmol/L (3.5-5.1); SODIUM 139 mmol/L (136-145)
[2018-08-24 06:10] LABS: INTERNATIONAL NORM RATIO 1.1 (2.0-3.5)
[2018-08-24 07:50] VITALS: BP 80/58
--- NOTE | 2018-08-24 07:58 | NUR ---
PT WAITING TO BE TAKEN TO X-RAY, POTENTIAL DISCHARGE IF X-RAY RESULTS ARE NEG. PAT. REFUSES TO WEAR WILVER HOSE, UP TO BATHROOM INDEPENDENTLY. LUZ MARIA THACKER SPNRCC
[2018-08-24] MEDS ORDERED: PREDNISONE5 MG PO (08:19)
[2018-08-24] MEDS ORDERED: CEFUROXIME AXE250 MG PO (08:19)
--- NOTE | 2018-08-24 08:21 | NUR ---
PHYSICAL THERAPY Patient presented to therapyin sitting position at EOB with 2 liters of spO2 via nasal canula. Patient reports feeling much stronger and better overall. Patient agrees to therapy session. Patient was identified by name and . Patient performed STS from EOB with SBA X 1. Patient ambulated with no assistive device and CLose Supervision with HAT BODY SORTER X 1 for 130' x 1 with no LOB or SOB. Patient's O2 SAT was measured and recorded as dropping to 90% with 2 liters of spO2 via nasal canula and 110 pulse. Patient's O2 SAT was measured and recorded as 95% and pulse was also 110 post ambulation. Patient sat on EOB and performed seated bilateral LE ther ex 2 x 10 reps each in all planes of movement for strengthening in order to improve patient's functional mobility. Patient was left at EOB in sitting position with call light within reach and O2 attached to wall with 2 liters of spO2. Patient is MOD I to the bedside commode throughout the day in room. Patient was 1:1 with this GLASS BEVELLER for 23 minutes total. KAYLA DE OLIVEIRA GLASS BEVELLER
[2018-08-24] MEDS ORDERED: PRINIVIL10 MG PO (08:31)
[2018-08-24 08:37] VITALS: BP 90/60
--- NOTE | 2018-08-24 09:00 | NUR ---
Pattern Cleaner in to see patient. No new needs or request at this time. She has decided to go home rather than to a SNF. Discussed home health care services and she denies any home needs at this time. Awaiting discharge as long as chest x-ray results are clear per pt. When medically stable she will be discharged to home.
--- NOTE | 2018-08-24 09:14 | NUR ---
PULSE OX ON R/A AT REST 87%. B/P 90/60, HEART RATE 97. PT. AMBULATING IN THE [place] WITH PHYSICAL THERAPY ON 2L O2, PULSE OX 90 TO 92% HEART RATE 110 TO 113 WITH AMBULATION. PT. RETURNED TO ROOM RESTING AT BEDSIDE ON 2L O2, PULSE OX 95%, HEART RATE 100, B/P 119/67. DR. NICHOLE WITH PT. AFTER WALK AND HAS WRITTEN A ORDER FOR HOME O2 AND THE PT. REQUEST TO HAVE [facility] FOR O2. RN AWARE.
--- NOTE | 2018-08-24 09:24 | NUR ---
PER DR NICHOLE PT CAN LEAVE AFTER CHEST X-RAY. ORDER RECEIVED FOR CHEST X-RAY TODAY AND NOW.
--- NOTE | 2018-08-24 09:34 | NUR ---
IN BED AWAKE ALERT AND ORIENTED X3, NO C/O. CHART CHECK COMPLETE. LABS REVIEWED. AWAITING [facility] TO BRING O2 TO GO HOME ON AND CXR TO BE DONE. NO S/S OF DISTRESS. WILL CONT TO MONITOR. CALL LIGHT IN REACH.
--- NOTE | 2018-08-24 09:44 | NUR ---
PT IS OFF THE FLOOR FOR CHEST X-RAY. LUZ MARIA THACKER [facility]
--- NOTE | 2018-08-24 10:15 | NUR ---
RETURNED FROM CXR
--- NOTE | 2018-08-24 10:20 | NUR ---
PT. IS BACK ON THE FLOOR FROM X-RAY, WAITING ON RIDE AND DISCHARGE INSTRUCTIONS. LUZ MARIA THACKER [facility]
--- NOTE | 2018-08-24 11:00 | NUR ---
Discharge instructions reviewed with patient/family. Patient receptive and verbalizes understanding. Follow-up care arranged. Written instructions given to patient/family LUZ MARIA JAEGER
--- NOTE | 2018-08-24 11:30 | NUR ---
IV D/C'D. SITE ASYMPTOMATIC, ASSISTED PT TO DRESS LUZ MARIA JAEGER
--- NOTE | 2018-08-24 11:45 | NUR ---
DISCHARGED PT TO CAR IN CARE OF FAMILY, DISCHARGED VIA W/C, STUDENT ACCOMPANIED PT TO CAR, CONDITION STABLE, DISCHARGED WITH HOME O2 ZACKARY PADILLACC
--- NOTE | 2018-08-24 11:45 | NUR ---
VERBALIZED UNDERSTANDING OF DISCHARGE INSTRUCTIONS. O2 BROUGHT IN BY ANA.
--- NOTE | 2018-08-24 13:03 | NUR ---
OCCUPATIONAL THERAPY CO-SIGN I approve of the Occupational Therapy notes written above. JOO ALEGRE OTR/Kaitlynn
--- NOTE | 2018-08-24 13:04 | NUR ---
PHYSICAL THERAPY CO-SIGN I approve of the Phyical Therapy notes written above. AMARJIT CHAHAL PT\ \
--- NOTE | 2018-08-25 08:12 | NUR ---
OCCUPATIONAL THERAPY CO-SIGN I approve of the Occupational Therapy notes written above. JOO ALEGRE OTR/Kaitlynn
[2018-12-03] MEDS ORDERED: CIPROFLOXACIN750 MG PO (09:18)
== END 2018-08-24 11:14 | disposition home or self-care (01) | DRG 291 ==
LOC: ED 11:28 → EDHOLD 14:08 → 4E 14:08
PROVIDERS: Internal Medicine; Student in an Organized Health Care Education/Training Program; ADMIT Internal Medicine
PROC: 3E073KZ Introduction of Other Diagnostic Substance into Coronary Artery, Percutaneous Approach (ICD-10-PCS; principal; 2018-08-17)
PROC: 4A02XM4 Measurement of Cardiac Total Activity, External Approach (ICD-10-PCS; principal; 2018-08-17)
PROC: B24BZZ4 Ultrasonography of Heart with Aorta, Transesophageal (ICD-10-PCS; 2018-08-23)
DX: I11.0 Hypertensive heart disease with heart failure (principal); J18.9 Pneumonia, unspecified organism; I50.31 Acute diastolic (congestive) heart failure; J96.21 Acute and chronic respiratory failure with hypoxia; J44.1 Chronic obstructive pulmonary disease with (acute) exacerbation; J44.0 Chronic obstructive pulmonary disease with (acute) lower respiratory infection; D68.51 Activated protein C resistance; J98.11 Atelectasis; I70.0 Atherosclerosis of aorta; F32.9 Major depressive disorder, single episode, unspecified; G89.29 Other chronic pain; M54.9 Dorsalgia, unspecified; I37.1 Nonrheumatic pulmonary valve insufficiency; I95.9 Hypotension, unspecified; E11.649 Type 2 diabetes mellitus with hypoglycemia without coma; R62.7 Adult failure to thrive; I27.23 Pulmonary hypertension due to lung diseases and hypoxia; I36.1 Nonrheumatic tricuspid (valve) insufficiency; Z96.643 Presence of artificial hip joint, bilateral; Z96.653 Presence of artificial knee joint, bilateral; Q96.9 Turner's syndrome, unspecified; Z79.4 Long term (current) use of insulin; Z87.891 Personal history of nicotine dependence; Z82.49 Family history of ischemic heart disease and other diseases of the circulatory system; Z88.2 Allergy status to sulfonamides; Z88.8 Allergy status to other drugs, medicaments and biological substances; Z86.718 Personal history of other venous thrombosis and embolism; Z86.711 Personal history of pulmonary embolism; Z83.3 Family history of diabetes mellitus

== ENCOUNTER 2018-10-12 11:35 | Inpatient (IN) | payer MEDICARE ==
[~2018-10-12] VITALS: Ht 144.8 cm; Wt 85.8 kg
--- NOTE | ~2018-10-12 | PR ---
[place], [place] PROGRESS NOTE NAME: HAILEE JARA [facility] #: [id number] UNIT #: [id number] ROOM: 405 DOCTOR: RASHMI NICHOLE MD BIRTHDATE: [birth year] DOS: 10/20/2018 SUBJECTIVE: She was supposed to have a V/Q scan yesterday that was somehow canceled. She was also supposed to go for a cardiac catheterization this morning and was not scheduled. She did undergo the PICC line placement. She feels good and is not having any new complaints. OBJECTIVE: VITAL SIGNS: Pressure is 103/61, pulse of 90, respirations 18, temperature 98.6. LUNGS: Diminished breath sounds, clear this morning. HEART: Regular. ABDOMEN: Obese. EXTREMITIES: Without any edema. ASSESSMENT AND PLAN: 1. Acute exacerbation of chronic obstructive pulmonary disease, improvement noticed. The bronchospasm almost resolved. She is on p.o. steroids. 2. Severe pulmonary hypertension. Awaiting right and left heart catheterization this morning. 3. History of factor V Leiden mutation and a possibility of pulmonary embolism causing pulmonary hypertension. V/Q scan will be arranged for today. 4. Type 2 diabetes mellitus, insulin dependent. Blood sugars controlled. 5. Chronic respiratory failure. She was using oxygen at night, may need to consider oxygen during daytime. Assessment for home O2 will be done today. RASHMI NICHOLE MD CM:PNTRANS [id number] RASHMI NICHOLE MD 10/20/18 0839 interface
--- NOTE | ~2018-10-12 | DS ---
[place], [place] DISCHARGE SUMMARY NAME: HAILEE JARA [facility] #: [id number] UNIT #: [id number] ROOM: 405 DOCTOR: RASHMI NICHOLE MD BIRTHDATE: [birth year] DOS: 10/20/2018 HOSPITAL COURSE: The patient is very well known to us. She comes in with complaints of increasing shortness of breath, was admitted to the hospital with exacerbation of COPD. After admission, the patient was placed on IV fluids, IV steroids, IV antibiotics, breathing treatments, oxygen supplementation. Consultation with Dr. Petersen was obtained. The patient underwent a V/Q scan to rule out pulmonary embolism because of the severe pulmonary hypertension that she had. Dr. Mcclain saw the patient for her chronic respiratory failure and history of pulmonary hypertension. She did have a transesophageal echocardiogram last admission, which showed tricuspid regurgitation. Discussion was made about her pulmonary hypertension and the need for right heart catheterization. The patient was taken to [facility] by Dr. Mcclain for right heart catheterization. The patient was stable at the time of transfer. RASHMI NICHOLE MD CM:DISCHARG [phone] RASHMI NICHOLE MD 11/08/18 1459 interface
--- NOTE | ~2018-10-12 | PR ---
[place], [place] PROGRESS NOTE [facility] [id number] UN[facility] #: [id number] ROOM: 405 DOCTOR: FELIX ELLISON MD BIRTHDATE: [birth year] DOS: 10/14/2018 SUBJECTIVE: She feels short of breath. Legs are still swollen. She is a little tired, but no chest pain or palpitation. She has not received any loop diuretic intravenously. JVP examination, complexion is fine. She is mildly tachypneic. JVP is increased and she has few crackles in the lungs and still has edema in the lower extremities. IMPRESSION: She has pulmonary hypertension and right heart failure. PLAN: IV furosemide 80 mg IV now and then 40 b.i.d. along with potassium supplement. Chem-6 will be done tomorrow. FELIX ELLISON MD CM:PNTRANS 35 [phone] FELIX ELLISON MD 10/15/18151 interface
--- NOTE | ~2018-10-12 | PR ---
[place], [place] PROGRESS NOTE NAME: HAILEE JARA [facility] #: [id number] UNIT #: [id number] ROOM: 405 DOCTOR: RASHMI NICHOLE MD BIRTHDATE: [birth year] DOS: 10/19/2018 SUBJECTIVE: The patient is about to eat her breakfast, is not having any complaints. The patient denies having any chest pains or palpitations. OBJECTIVE: VITAL SIGNS: On examination, graphic trend shows a pressure 100/57, pulse of 89, respirations 20, temperature 97.1. LUNGS: Diminished breath sounds, a few scattered wheezes much improved. HEART: Regular. ABDOMEN: Obese. EXTREMITIES: Without any edema. LABORATORY DATA: WBC count is 10.3, hemoglobin 12.3. Protime this morning, INR 1.2. Basic glucose 166, BUN 30, creatinine 0.89, sodium 135, potassium 3.9. Blood cultures, no bacterial growth. Blood sugar this morning was 161. ASSESSMENT AND PLAN: 1. Acute exacerbation of chronic obstructive pulmonary disease, on IV steroids, but the patient has no IV access, PICC line has been placed, p.o. steroids have been given. The patient is definitely improved. Discussed with Dr. Petersen. 2. Pulmonary hypertension. V/Q scan pending. The patient may benefit from a cardiac catheterization. We will discuss with Dr. Mcclain about a right heart catheterization. 3. Factor V Leiden mutation with the possibility of chronic PE. The patient is on Coumadin. Protime was a very high yesterday, was given vitamin K this morning, is down to 1.3. Restart the Coumadin after we decide on the procedures. RASHMI NICHOLE MD CM:PNTRANS 0849 RASHMI NICHOLE MD 10/19/18 0848 interface
--- NOTE | ~2018-10-12 | PR ---
[place], [place] PROGRESS NOTE NAME: HAILEE JARA [facility] #: [id number] UNIT #: [id number] ROOM: 405 DOCTOR: HAKEEM VERMA MD BIRTHDATE: [birth year] DOS: 10/15/2018 SUBJECTIVE: The patient is still short of breath. PHYSICAL EXAMINATION: GENERAL APPEARANCE: The patient is alert and oriented x 3, in no visible distress. VITAL SIGNS: Blood pressure 120/70, heart rate of 94 beats minute, breathing 18 times per minute, afebrile, temperature of 97.8 degrees Fahrenheit. The patient is wearing oxygen. HEENT AND NECK: Exam within normal limits. CARDIOVASCULAR SYSTEM: Heart rate is regular in rate and rhythm. S1 and S2 normally audible. LUNGS: Decreased breath sounds all over. ABDOMEN: Soft, nontender. No obvious organomegaly. Bowel sounds are present. EXTREMITIES: Without significant cyanosis or edema. IMPRESSION: 1. The patient with acute congestive heart failure, diastolic type. 2. Severe pulmonary hypertension and cor pulmonale. 3. Hypotensive for uncertain reason, but blood pressures have normalized. 4. Factor V Leiden mutation. The patient remains on anticoagulation with Coumadin. 5. Acute exacerbation of chronic obstructive pulmonary disease, being treated with bronchodilators. HAKEEM VERMA MD CM:PNTRANS [id number] HAKEEM VERMA MD 10/15/18 1751 interface
--- NOTE | ~2018-10-12 | PR ---
[place], [place] PROGRESS NOTE NAME: HAILEE JARA [facility] #: [id number] UNIT #: [id number] ROOM: 405 DOCTOR: RASHMI NICHOLE MD BIRTHDATE: [birth year] DOS: 10/18/2018 SUBJECTIVE: The patient is about the same, does not have any new complaints. She is awaiting a bronchoscopy. OBJECTIVE: VITAL SIGNS: Graphic trend shows a pressure of 108/69, pulse of 101, respirations 20, temperature 97.6. LUNGS: Diminished breath sounds, scattered wheezes. HEART: Regular. ABDOMEN: Obese. EXTREMITIES: Without any edema. LABORATORY DATA: Blood culture shows no bacterial growth. No labs available, the last was on . ASSESSMENT AND PLAN: 1. Acute exacerbation of chronic obstructive pulmonary disease with chronic respiratory failure, continued bronchospasm noticed, awaiting a bronchoscopy. 2. Pulmonary hypertension with tricuspid regurgitation with acute diastolic congestive heart failure, which is resolved. Chest x-ray and routine labs will be ordered today. Hopefully, the cultures are negative, the plan is to discharge the patient to home on Thursday. RASHMI NICHOLE MD CM:PNTRANS RASHMI NICHOLE MD 10/18/18 0940 interface
--- NOTE | ~2018-10-12 | PR ---
[place], [place] PROGRESS NOTE [facility]: [id number] UNIT #: [id number] ROOM: 405 DOCTOR: FELIX ELLISON MD BIRTHDATE: [birth year] DOS: 10/18/2018 SUBJECTIVE: She feels fairly well. She had some shortness of breath. No swelling in the legs now. She has not had any palpitation, dizziness. No fever or chills. Her appetite is fine, but she has not walked in the hallways or even much in the room. She is on oxygen. PHYSICAL EXAMINATION: GENERAL: Reveals the patient who is very pleasant, alert. VITAL SIGNS: Pulse is 100 and regular, blood pressure 108/70. NECK: JVP is normal. EXTREMITIES: She has absolutely no edema of the lower extremities now. RESPIRATORY: She is not tachypneic. Breath sounds are diminished bilaterally with inspiratory and expiratory adventitious sounds with some expiratory wheezes. IMPRESSION: 1. This patient has diastolic heart failure; her right heart failure is well compensated now. 2. INR is very high and it is probably because she is on antibiotics as well. Warfarin has been held and she has been given vitamin K. No new recommendations. FELIX ELLISON MD CM:PNTRANS [id number] FELIX ELLISON MD 10/19/18 0413 interface
--- NOTE | ~2018-10-12 | PR ---
[place], [place] PROGRESS NOTE NAME: HAILEE JARA [facility] #: [id number] UNIT #: [id number] ROOM: 405 DOCTOR: KEI CLOUD MD,FRANCES BIRTHDATE: 60 DOS: 10/19/2018 PULMONARY PROGRESS NOTE SUBJECTIVE: The patient was noted comfortable at this time and was noted with significant reduction of the respiratory symptoms of coughing and wheezing in the last 24 hours. Shortness of breath was also noted decreased, but not completely resolved. The patient could not have an IV established and none of the intravenous medications were given including the steroids. She was given 60 mg of prednisone 1 dose. The patient was also ordered a V/Q scan, which was not done for this patient because of lack of an IV access. Midline and another IV line tried to be established were not noted successful. She will be getting a PICC line done today for the patient and IV access. She has not been noted any symptoms of chest pain or hemoptysis. Complaining of fatigue and tiredness. There were no symptoms of fever or chills. The remaining systems were reviewed. They were noted all negative. OBJECTIVE: VITAL SIGNS: For the patient, which has been recorded shows normal temperature, respiratory rate of 17, heart rate 88, blood pressure 150/70-106/62. Pulse oxygen saturation recorded as 97% saturation with 2 liters nasal cannula. HEENT: Chronic obesity. Head was atraumatic. Eyes nonicterus. NECK: Supple and obese. CARDIOVASCULAR SYSTEM: S1, S2 is audible. LUNGS: Noted significant reduction of wheezing in the last 24 hours. ABDOMEN: Soft, nontender. Bowel sounds present. EXTREMITIES: Without any acute edema. MUSCULOSKELETAL: Without any acute deformity. SKIN: No lesions or rashes. CENTRAL NERVOUS SYSTEM: Intact. LABORATORY DATA: CBC that was done on 10/09/2018 was noted with a normal CBC. PT/INR was 1.2. BMP of the patient; BUN 30, creatinine was normal, glucose 166, sodium 135, CO2 33. IMPRESSION: 1. The patient has been noted with resolving acute exacerbation of bronchial asthma, reduction in symptoms of wheezing. 2. Severe pulmonary hypertension, required further confirmatory assessment with a cardiac catheterization. In addition, workup to be done as an outpatient. 3. Rule out chronic thromboembolism. 4. Past history of thromboembolism on the anticoagulation, which was placed on hold. The INR today was noted subtherapeutic. PLAN OF MANAGEMENT: At this time, bronchoscopy, which was to be done was canceled and would not be performed. The case was discussed with Dr. Oksana Gusman for the cardiac workup. V/Q scan will be done. The patient will be recommended about cardiac catheterization. Dr. Gusman has contacted Dr. Mcclain, Cardiology for the cardiac catheterization of the right heart. The patient will [place], [place] PROGRESS NOTE NAME: HAILEE JARA UNIT #: [id number] ROOM: [facility] DOCTOR: KEI CLOUD MD,FRANCES BIRTHDATE: [birth year] be transferred to the [facility]. Proceed with the PICC line insertion and IV Solu-Medrol, and other treatments and therapies. FRANCES CHOUDHURY MD CM:PNTRANS [id number] FRANCES CLOUD MD 11/04/18 1049 interface
--- NOTE | ~2018-10-12 | PR ---
[place], [place] PROGRESS NOTE NAME: HAILEE JARA [facility] #: [id number] UNIT #: [id number] ROOM: 405 DOCTOR: RASHMI NICHOLE MD BIRTHDATE: [birth year] DOS: SUBJECTIVE: The patient is about the same, does not have any complaints. OBJECTIVE: VITAL SIGNS: Pressure is 118/72, pulse of 97, respirations 16, temperature 98.1. LUNGS: Diminished with some scattered wheezes. HEART: Regular. ABDOMEN: Obese. EXTREMITIES: Without any edema. LABORATORY DATA: Blood cultures, no bacterial growth. WBC count is 3.2, hemoglobin 9.7, protime 14.6 with an INR of 1.3, glucose 144, BUN 24, creatinine 0.74. Electrolytes normal. ASSESSMENT AND PLAN: 1. Hypotension of unknown etiology. This has resolved. 2. Severe pulmonary hypertension with diastolic dysfunction, tricuspid regurg, seen by Dr. Mcclain. 3. Chronic obstructive pulmonary disease with acute exacerbation. CT of the chest does not show any evidence of pneumonia. 4. Multiple lung nodules, which are old and has not changed. 5. Type 2 diabetes mellitus. Blood sugars controlled. 6. Factor V Leiden mutation, on anticoagulation. Protime is low. Coumadin dosage will be adjusted. RASHMI NICHOLE MD CM:PNTRANS 1 RASHMI NICHOLE MD 10/14/18 0932 interface
--- NOTE | ~2018-10-12 | CON ---
[place], [place] REPORT OF CONSULTATION NAME: HAILEE JARA [facility] #: [id number] UNIT #: [id number] ROOM: 405 DOCTOR: KEI CLOUD MD,FRANCES BIRTHDATE: [birth year] DOS: 10/18/2018 PULMONARY CONSULTATION, EVALUATION AND MANAGEMENT CONSULTATION REQUESTED BY: Wes Mae MD REASON FOR CONSULTATION: Nonresolving respiratory symptoms, persistent coughing and wheezing. HISTORY OF PRESENT ILLNESS: A 58-year-old white female patient who has been admitted to the hospital under care of Dr. Mae since 10/12/2018. She was reporting ongoing symptoms of increased coughing, chest congestion, wheezing, which has been present for several days. The symptoms were not improving. She has been admitted to the hospital. Currently, treated the patient under the care of Dr. Mae. The patient is receiving oral prednisone and other medications. The patient is stating her symptoms have not been resolved and did note persistent coughing and excessive wheezing and shortness of breath with mild exertion. She does complain of symptoms of tightness in the chest. No symptoms of chest pain reported by the patient. REVIEW OF SYSTEMS: CONSTITUTIONAL SYMPTOMS: Fatigue and tiredness noted without any symptoms of fever or chills. EYES: Denies any burning, redness, or tenderness. EARS, NOSE, THROAT SYMPTOMS: Denies sore throat, hoarseness, otalgia, post-nasal drainage, or epistaxis. CARDIOVASCULAR SYSTEM: Denies angina pain, edema, or pain of the lower extremities. GASTROINTESTINAL SYMPTOMS: Denies dysphagia, nausea, vomiting, diarrhea or any abnormal weight loss. GENITOURINARY SYMPTOMS: No dysuria, suprapubic pain, or hematuria. MUSCULOSKELETAL SYMPTOMS: No acute joint pain, redness, or tenderness. SKIN: Denies lesions or rashes. CENTRAL NERVOUS SYSTEM: No dizziness, headache, or diplopia. Remaining systems were reviewed. They were noted all negative. PAST MEDICAL HISTORY: Noted with previous hospitalization in 07/2018, treated at that time for acute congestive heart failure, underwent the echocardiogram assessment, pulmonary hypertension as well at that time. She was also managed at that time for acute exacerbation of COPD. Past medical history for the patient was known with history of: 1. COPD. 2. Chronic hypoxic respiratory failure. 3. Essential hypertension. 4. Type 2 diabetes mellitus. 5. Congestive heart failure with diastolic dysfunction. 6. Severe pulmonary hypertension, suspected, last diagnosis in 08/2018. Further workup was unavailable. [place], [place] REPORT OF CONSULTATION NAME: HAILEE JARA UNIT #: [id number] ROOM: 405 DOCTOR: KEI CLOUD MD,FRANCES BIRTHDATE: [birth year] 7. History of pulmonary embolism. 8. Deep venous thrombosis. 9. Factor V Leiden deficiency. PAST SURGICAL HISTORY: Reported as hip replacement. SOCIAL HISTORY: Stating at this time, has no children. Smoking was noted 1 pack of cigarettes since teenager, discontinued 5 years ago. FAMILY HISTORY: Reported for coronary artery disease, hypertension, diabetes and COPD. MEDICATIONS: The home medications, which were listed at the time of the admission on 08/14/2018 were reported as use of Symbicort, BuSpar, vitamin D, Farxiga, Amaryl, [place], lisinopril, lovastatin, omeprazole, Seroquel, Requip 4 mg at bedtime, torsemide, Coumadin, and Tresiba. DRUG ALLERGIES: Reported: 1. PHENOBARBITAL. 2. SULFA DRUGS. PHYSICAL EXAMINATION: GENERAL: This is a 58-year-old female patient currently noted without any acute distress this morning of assessment. VITAL SIGNS: Height of 4 feet 9 inches, weight of 202 pounds, BMI 43 on admission. HEENT: Head is atraumatic. Eyes, nonicterus. NECK: Supple. Decreased posterior pharyngeal space, high tongue base and crowding of soft tissue structures. CARDIOVASCULAR SYSTEM: S1, S2 is audible. LUNGS: The patient was noted without any crackles. Diffuse expiratory wheezing was present. ABDOMEN: Soft, obese, nontender. EXTREMITIES: Chronic obesity. MUSCULOSKELETAL: Without any acute deformities. CENTRAL NERVOUS SYSTEM: The patient's cranial nerves 2-12 intact. SKIN: No lesions or rashes. LABORATORY DATA: Admission labs, the patient's CBC on 10/12/2018; WBC count 4.1, hemoglobin 9.9, platelet count was normal. Lactic acid 1.2 on 10/12/2018. PT/PTT on admission; INR 1.5, PTT normal on 10/12/2017. BMP that was done on admission; normal BUN and creatinine, glucose 125. The PT/INR on 10/14/2018 1.3. The PT/INR that was obtained this morning after I assessed the patient was noted as 6.2. BMP that was done this morning that I ordered; BUN 33, creatinine was normal. Blood culture showed no bacterial growth. CBC that was ordered this morning as well; WBC count 11.2, hemoglobin and hematocrit normal, platelet count was normal REVIEW OF THE RADIOLOGY DATA ON THIS PATIENT: Echocardiogram for the patient that was done on previous admission on 08/06/2018 was noted with evidence of [place], [place] REPORT OF CONSULTATION NAME: HAILEE JARA UNIT #: [id number] ROOM: 405 DOCTOR: KEI CLOUD MD,FRANCES BIRTHDATE: [birth year] severe pulmonary hypertension, left ventricular ejection fraction of 60-70% with diastolic dysfunction at that time. The chest x-ray that was done on admission does not show any acute pulmonary abnormalities. CT scan of the chest done was noted with a small pericardial effusion with change of pulmonary venous congestion and trace left pleural fluid. There was no visible pulmonary infiltration. Several of the radiology studies were assessed for the patient. The patient has a CT scan of the chest done on 07/01/2016 noted subcentimeter pulmonary nodule ranging from 4-8 mm in size. The lack of the IV contrast does limit the assessment of the mediastinal structures. Other CT scan was done on 08/16/2018 was reviewed as well. Again, the study was performed without contrast as well limiting mediastinal structures assessment. Small pericardial effusion for the patient was seen at that time. Another CT scan of chest was done on this admission again was reviewed, shows stable bilateral subcentimeter pulmonary nodule with a small circumferential pericardial effusion was still noted with a small left pleural effusion as well. Some area of scarring in the lower lungs on the left side cannot be excluded. IMPRESSION: 1. The patient who has been currently admitted to the hospital was noted with history of past thromboembolism and pulmonary embolism, on anticoagulation noted with Coumadin toxicity. 2. Acute exacerbation of chronic obstructive pulmonary disease, persistent wheezing and cough, nonresolving with current medical management. 3. Small pericardial effusion, significance unknown. 4. Severe pulmonary hypertension. 5. Pulmonary nodule, which has been noted. Consider differential of chronic hypersensitive pneumonitis, sarcoidosis and other etiologies. 5. Chronic obesity with strong suspicion of obstructive sleep apnea disorder. PLAN OF MANAGEMENT: Continuation of the bronchodilators and other treatment. The prednisone has been discontinued and the patient was started on the IV Solu-Medrol preparation 40 mg q.8 hours. Discontinue the Coumadin at the present time until the INR noted therapeutic. Once the patient's INR reaches a therapeutic level, consider bronchoscopy. The patient most likely will require assessment of pulmonary hypertension in the pulmonary hypertension clinic and other assessment to be done as an outpatient certainly to rule out sleep apnea disorder, severity of the COPD, other etiology may be contributing to the pulmonary hypertension. The patient was also noted with acute congestive heart failure, diastolic dysfunction as well, which has been treated with the diuretics, already assessed. Recommendation was given by Dr. Mcclain for this patient from of this month. Other therapy, plan of management and care plan. Obtain arterial blood gas for this patient to assess the hypercapnia as well. Supportive therapy, plan of management and other care plan of treatment with additional treatment changes will be made for the patient based on progression of the illness. She was also started on oral doxycycline 100 mg p.o. b.i.d. for this patient and the Augmentin was discontinued. Collect the sputum for Gram stain and culture. Other additional treatment changes will be made based on progression of the illness. Usual care, other plan of management and therapy. The additional use of the BiPAP will be recommended, most likely as well after the arterial blood gases. Usual care and plan of treatment as [place], [place] REPORT OF CONSULTATION NAME: HAILEE JARA UNIT #: [id number] ROOM: 405 DOCTOR: KEI CLOUD MD,FRANCES BIRTHDATE: [birth year] well. The V/Q scan to rule out thromboembolism for this patient, which could be chronic part of the assessment of pulmonary hypertension. Small pericardial effusion at this time, significance unknown. Follow the recommendation of Cardiology Service, Dr. Mcclain. Also, usual workup at this time, which is available, serology limited testing available in this hospital will be ordered as well. Thanks for allowing me to participate in the care of this patient. FRANCES CHOUDHURY MD CM:CONSTR:REPORT OF CONSULTATION 1240 10/19/18 0101 interface
--- NOTE | ~2018-10-12 | WRIGHTHP ---
[place], [place] PATIENT HISTORY AND PHYSICAL EXAM NAME: HAILEE JARA [facility] #: [id number] UNIT #: [id number] ROOM: 405 DOCTOR: RASHMI NICHOLE MD BIRTHDATE: [birth year] DOS: 10/12/2018 HISTORY OF PRESENT ILLNESS: The patient is very well known to us. This patient was last admitted to the hospital in 07/2018 with exacerbation of COPD. States for the last 2 weeks, she has been increasingly short of breath and having a cough. Denies having any chest pains or palpitations. She denies having any nausea and any emesis. The cough is productive of scant amounts of sputum, so she arrived to the Emergency Room yesterday. She had normal lactic acid level and chest x-ray did not show a pneumonia and was admitted with acute exacerbation of COPD. During the night, the patient has been quite hypotensive even though asymptomatic and was given 500 mL of normal saline bolus. This morning, is not having any other complaints. PAST MEDICAL HISTORY: Significant for: 1. Jean syndrome. 2. Tricuspid regurgitation. Last transesophageal echocardiogram done by Dr. Mcclain on 08/23 showing mild tricuspid regurg, mild right atrial enlargement, moderate right ventricular enlargement with hypokinesia. 3. COPD with history of nicotine abuse. 4. Chronic respiratory failure, now on oxygen. 5. Factor V Leiden mutation. 6. Hypertension, benign. 7. Type 2 diabetes mellitus. 8. Major depression, mild. 9. Primary osteoarthritis, multiple joints with replacements and chronic pain. MEDICATIONS: That she is currently on are vitamin D 50,000 units once a week, Farxiga 5 mg daily, glimepiride 4 mg daily, [place] 7.5 t.i.d. p.r.n., lisinopril 10 mg daily, lovastatin 10 daily, omeprazole 20 daily, Seroquel 600 mg at bedtime, Requip 4 mg daily, Demadex 10 mg daily, warfarin 8 mg daily, insulin 80 mg daily. SOCIAL HISTORY: Nonsmoker, but history of heavy smoking. Denies using any alcohol. She lives at home. PHYSICAL EXAMINATION: GENERAL: She is awake and alert and oriented. VITAL SIGNS: Graphic trend shows a pressure of 80/60, pulse of 78, respirations 20. LUNGS: Diminished breath sounds, scattered rhonchi and wheezes heard. HEART: Regular. ABDOMEN: Obese, soft. EXTREMITIES: Without any edema. ASSESSMENT AND PLAN: 1. Acute exacerbation of chronic obstructive pulmonary disease, has been placed on IV steroids and antibiotics. 2. Hypotension, possibly from medications. Lactic acid is normal. Sepsis cannot be ruled out. Also, it could be a combination of multiple antihypertensives that she is on currently. We will hold off on all these [place], [place] PATIENT HISTORY AND PHYSICAL EXAM NAME: HAILEE JARA [facility] #: [id number] UNIT #: [id number] ROOM: 405 DOCTOR: RASHMI NICHOLE MD BIRTHDATE: [birth year] medications for right now. 3. Type 2 diabetes mellitus, insulin-dependent. Blood sugars fairly controlled. RASHMI NICHOLE MD CM:HISPHYS:PATIENT HISTORY AND PHYSICAL EXAMINATION [id number] RASHMI NICHOLE MD 10/13/18 1215 interface
--- NOTE | ~2018-10-12 | EKG ---
[place], [place] ELECTROCARDIOGRAM REPORT NAME: HAILEE JARA UNIT #: [id number] ROOM: 405 DOCTOR: SHEREE DRAFT REPORT BIRTHDATE: [birth year] [facility] Test Date: 2018-10-12 Test Time: 12:02:57 Pat Name: HAILEE JARA Department: Room: 405 Gender: F [employer] Manufacture: Davina Ngo : 1960 Requested By: CÉSAR MARTINEZ Order Number: [id number] Reading MD: Arnaldo Peck MD Measurements Intervals [place] Rate: 99 P: -6 WA: 183 QRS: 146 QRSD: 103 T: -38 QT: 375 QTc: 482 Interpretive Statements Sinus rhythm RVH with secondary repolarization abnrm Nonspecific T abnormalities, lateral leads ST elevation, consider lateral injury Compared to ECG 08/15/2018 12:16:21 T-wave abnormality now present ST (T wave) deviation now present Myocardial infarct finding now present Sinus tachycardia no longer present Electronically Signed On 10-13-2018 9:39:39 PDT by Arnaldo Peck MD CM:EKGRPT:ELECTROCARDIOGRAM REPORT 1202 [id number] CÉSAR NAIDU DRAFT REPORT CÉSAR MARTINEZ DO
--- NOTE | ~2018-10-12 | PR ---
[place], [place] PROGRESS NOTE [facility] [id number] UNIT #: [id number] ROOM: 405 DOCTOR: NELSON STOUT MD BIRTHDATE: [birth year] DOS: 10/19/2018 SUBJECTIVE: The patient examined. Cardiac status appears to be stable. She feels quite well. Does have some shortness of breath. No chest discomfort. Leg swelling is significantly improved. No palpitations. Hemodynamically stable. She is on oxygen. REVIEW OF SYSTEMS: As HPI, 6-8 systems reviewed and negative except for mild shortness of breath. PHYSICAL EXAMINATION: GENERAL: Alert, oriented x 3. VITAL SIGNS: Blood pressure is 108/70, sinus tachycardia. NECK: Supple, no JVD. LUNGS: Diminished air entry with few coarse rhonchi. HEART: Sounds are regular. ABDOMEN: Soft. NEUROLOGIC: Stable. LABORATORY DATA: Shows hemoglobin 12.3, hematocrit 40. Electrolytes are normal. Creatinine is 0.8. IMPRESSION: The patient with diastolic heart failure, right heart failure, exacerbation of chronic obstructive pulmonary disease, pulmonary hypertension, and tricuspid regurgitation. The patient is improving. RECOMMENDATIONS: Continue with present care. Increase activity and we will follow up as needed. NELSON STOUT MD CM:PNTRANS [id number] NELSON STOUT MD 10/19/18 0813 interface
--- NOTE | ~2018-10-12 | CON ---
[place], [place] REPORT OF CONSULTATION NAME: HAILEE JARA [facility] #: [id number] UNIT #: [id number] ROOM: 405 DOCTOR: FELIX ELLISON MD BIRTHDATE: [birth year] DOS: 10/13/2018 HISTORY OF PRESENT ILLNESS: This is a 58-year-old -[place] woman with Jean's syndrome, factor V Leiden mutation, essential hypertension, type 2 diabetes mellitus, COPD and has had respiratory failure. She has severe pulmonary hypertension with pressure exceeding 60 mmHg. Transesophageal echocardiogram in July demonstrated LV ejection fraction of 65% and moderately dilated right ventricle with hypertrophy. Right atrium is also dilated. She has never had a stroke or rhythm disorder of the heart, heart attack, diabetes or cancer. She quit smoking 5 years ago after having had 35 years of tobacco consumption. FAMILY HISTORY: Positive for coronary artery disease. She had a stress test done in July, which did not demonstrate any ischemia. She was admitted to the hospital because of increasing shortness of breath for the last 10 days to 2 weeks. She had noted this was getting worse. She also had more swelling in the legs. She has been coughing with very little expectoration. HOME MEDICATIONS: Include Demadex 10 mg daily, warfarin 8 mg daily, insulin 18 units daily, Requip 4 mg daily, Seroquel 600 mg at bedtime, omeprazole 20 daily, lovastatin 10 daily, lisinopril 10 mg daily, glimepiride 4 mg daily, [place] 7.5 mg t.i.d. p.r.n. and Farxiga 5 mg daily. PHYSICAL EXAMINATION: GENERAL: The patient is very short. She has some features of Jean syndrome. Her complexion is rather flushed. There is no cyanosis or jaundice and no thyromegaly is present. There is no finger clubbing. VITAL SIGNS: Temperature is normal, pulse is 100 and regular, blood pressure 115/70. NECK: JVP seems to be significantly elevated in a sitting position; it is probably about 20 cm of water. She has 1 to 2+ edema of the lower extremities. LUNGS: Breath sounds are diminished with some rhonchi and some also crackles in both lungs. ABDOMEN: Rather large and difficult to examine, but was nontender. Chest x-ray demonstrates cardiomegaly and mild pulmonary congestion. Hemoglobin 9.6 g/dL, sodium 139, potassium 3.8, BUN 20, creatinine 0.69. IMPRESSION: 1. This patient has severe pulmonary hypertension with predominantly right heart failure. I think there is probably diastolic dysfunction causing some degree of left heart failure as well. 2. Tricuspid regurgitation. RECOMMENDATIONS: IV loop diuretic needs to be used in a sufficient dose to induce diuresis with negative fluid balance of 1-2 liters a day while monitoring [place], [place] REPORT OF CONSULTATION NAME: HAILEE JARA UNIT #: [id number] ROOM: 405 DOCTOR: SCOT JIMENES,FELIX BIRTHDATE: [birth year] renal function and potassium. I expect her to be in the hospital for the next few days. I thank you for this consult. FELIX ELLISON MD CM:CONSTR:REPORT OF CONSULTATION 1938 10/14/18 0055 interface
--- NOTE | ~2018-10-12 | PR ---
[place], [place] PROGRESS NOTE NAME: HAILEE JARA [facility] #: [id number] UNIT #: [id number] ROOM: 405 DOCTOR: HAKEEM VERMA MD BIRTHDATE: [birth year] DOS: 10/17/2018 SUBJECTIVE: The patient continues to be short of breath and wheezing. OBJECTIVE: GENERAL APPEARANCE: The patient is alert and oriented x 3, in no visible distress. VITAL SIGNS: Blood pressure 111/63, heart rate 103 beats per minute, breathing 20 times per minute 98.5 degrees Fahrenheit. HEENT AND NECK: Exam within normal limits. CARDIOVASCULAR SYSTEM: Heart rate is regular in rate and rhythm. S1 and S2 normally audible. LUNGS: Decreased breath sounds all over and expiratory wheezing on lung auscultation. ABDOMEN: Soft, nontender. No obvious organomegaly. Bowel sounds are present. EXTREMITIES: Without significant cyanosis or edema. IMPRESSION: 1. Acute exacerbation of chronic obstructive pulmonary disease, and severe underlying disease. The patient is still on oxygen, wheezing and short of breath and being treated. Dr. Petersen consulted to follow the patient. 2. Acute diastolic type congestive heart failure, being treated. 3. Severe pulmonary hypertension, cor pulmonale, and chronic lung disease. 4. Hypotension, resolved. 5. Factor V Leiden mutation. The patient remains anticoagulated with Coumadin. HAKEEM VERMA MD CM:PNTRANS 1626 [id number] HAKEEM VERMA MD 10/18/18 0052 interface
--- NOTE | ~2018-10-12 | PR ---
[place], [place] PROGRESS NOTE NAME: HAILEE JARA [facility] #: [id number] UNIT #: [id number] ROOM: 405 DOCTOR: HAKEEM VERMA MD BIRTHDATE: [birth year] DOS: 10/16/2018 OBJECTIVE: VITAL SIGNS: Blood pressure 119/78, heart rate of 95 beats per minute, breathing 18 times per minute, temperature 98 degrees Fahrenheit. GENERAL APPEARANCE: The patient is alert and oriented x 3, in no visible distress. HEENT AND NECK: Exam within normal limits. CARDIOVASCULAR SYSTEM: Heart rate is regular in rate and rhythm. S1 and S2 normally audible. LUNGS: Clear to auscultation. ABDOMEN: Soft, nontender. No obvious organomegaly. Bowel sounds are present. EXTREMITIES: Without significant cyanosis or edema. IMPRESSION: 1. Acute diastolic type congestive heart failure, improving with treatment. 2. Severe pulmonary hypertension, cor pulmonale. 3. Hypotension has resolved. Blood pressures are now staying normal. 4. Acute exacerbation of chronic obstructive pulmonary disease, being treated with bronchodilators. 5. Factor V Leiden mutation. The patient remains anticoagulated with Coumadin. HAKEEM VERMA MD CM:PNTRANS [id number] HAKEEM VERMA MD 10/17/18 1556 interface
--- NOTE | ~2018-10-12 | PR ---
[place], [place] PROGRESS NOTE NAME: HAILEE JARA [facility] #: [id number] UNIT #: [id number] ROOM: 405 DOCTOR: KEI CLOUD MD,FRANCES BIRTHDATE: [birth year] DOS: 10/20/2018 SUBJECTIVE: The patient continued to show reduction of the respiratory symptoms, shortness of breath and wheezing. Denies symptoms of chest pain or any hemoptysis. The patient denies symptoms of nausea, vomiting, diarrhea or any abdominal pain. OBJECTIVE: VITAL SIGNS: For the patient which were recorded showed normal temperature, respiratory rate 20, heart rate 110, blood pressure 120/64. Pulse oxygen saturation on 2 liters nasal cannula 97% saturation. HEENT: Examination shows head was atraumatic. Eyes nonicterus. NECK: Supple. CARDIOVASCULAR: S1, S2 audible. LUNGS: Scattered expiratory wheezing, no crackles. ABDOMEN: Soft, nontender. Bowel sounds present. EXTREMITIES: Without any acute change. Chronic obesity. MUSCULOSKELETAL: No deformities. CENTRAL NERVOUS SYSTEM: Nonfocal. IMPRESSION: The patient with the pulmonary hypertension, which appeared to be severe at this time with resolving acute exacerbation of chronic obstructive pulmonary disease, bronchial asthma. Rule out thromboembolism for this patient, which is chronic as well. PLAN OF MANAGEMENT: V/Q scan was ordered, still remains pending. The patient was planned for transfer to [facility] for undergoing a right heart cardiac catheterization. Continue in the meantime other therapy, plan of management, care plan of treatment and care. FRANCES CHOUDHURY MD CM:PNTRANS 16 [phone] FRANCES CLOUD MD 10/20/181946 interface
[~2018-10-12 11:35] MED LIST changes: +AMBIEN10 M1 PO; +CEFUROXIME AXE250 MG PO; +DEMADEX10 M1 PO; +FARXIGA5 M1 PO; +LOVASTATIN40 MG PO; +MORPHINE SULFAT30 M9 PO; +PREDNISONE5 MG PO; +PRINIVIL10 MG PO; +TRESIBA FL100 UNIT/1 SQ; +TRESIBA FL200 UNIT/1 SQ
[2018-10-12 11:43] VITALS: BP 108/66
[2018-10-12 12:16] LABS: BASO % 0.2 % (0.0-1.0); HEMATOCRIT 32.4 % (37.0-47.0); HEMOGLOBIN 9.9 g/dl (12.0-16.0); LYMPH # 0.5 10*3/uL (1.3-4.4); LYMPH % 11.7 % (27.0-41.0); MEAN CELL VOLUME 88.3 fl (81.0-99.0); MEAN CORPUSCULAR HGB CONC 30.6 g/dl (33.0-37.0); MEAN PLATELET VOLUME 11.7 fl (9.6-12.3); MONO # 0.3 10*3/uL (0.1-1.0); MONO % 7.3 % (3.0-9.0); NEUT # 3.3 10*3/uL (2.3-7.9); NEUT % 80.6 % (47.0-73.0); PLATELET COUNT AUTOMATED 135 10*3/uL (130-400); RED BLOOD COUNT 3.67 10*6/uL (4.10-5.10); RED CELL DISTRI WIDTH 16.9 % (0-14.5); WHITE BLOOD COUNT 4.1 10*3/uL (4.8-10.8)
[2018-10-12 12:25] LABS: ACT PARTIAL THROMBO TIME 25.5 SECONDS (20.8-31.5); INTERNATIONAL NORM RATIO 1.5 (2.0-3.5)
[2018-10-12 12:30] VITALS: BP 117/61
[2018-10-12 12:33] LABS: ALBUMIN 3.4 gm/dl (3.1-4.5); ALKALINE PHOSPHATASE 82 U/L (45-117); BUN 18 mg/dl (7-24); CHLORIDE 104 mmol/L (98-107); LIPASE 71 U/L (73-393); SGOT/AST 21 IU/L (3-35); SGPT/ALT 27 U/L (12-78); SODIUM 139 mmol/L (136-145); TOTAL PROTEIN 7.5 gm/dL (6.4-8.2); TROPONIN I 0.018 ng/ml (<0.045)
--- NOTE | 2018-10-12 14:03 | NUR ---
PT RESTING QUIETLY, ANTIBOTIC INFUSING, LASIX WAS ADMINSITERED, PT WAITING FOR BED ASSINTMENT. PT VOICES NO COMPLAINTS, BOX LUNCH WAS PROVIDED.
[2018-10-12 14:06] VITALS: BP 110/68
--- NOTE | 2018-10-12 15:00 | NUR ---
A 58, admitted to , under the services of RASHMI White MD with a diagnosis of ACUTE HEART FAILURE AND COPD EXACERBATION . Chief complaint is SOB. Patient arrived via ambulatory from ER. Monitor applied. Initial assessment completed. Vital signs taken and recorded. RASHMI WHITE MD notified of admission to the unit. Orders received. See assessment for past medical history, medications and allergies. Patient and/or family oriented to unit. [facility] visitation policy reviewed. Clothing/patient valuable form completed. JOANA GROSSMAN
[2018-10-12] MEDS ORDERED: SYMB160 INH (15:17)
[2018-10-12] MEDS ORDERED: BUSPAR5 MG PO (15:18)
[2018-10-12] MEDS ORDERED: VITAMIN D50000 UNIT PO (15:19)
[2018-10-12] MEDS ORDERED: DICYCLOMINE HCL10 MG PO (15:22)
--- NOTE | 2018-10-12 16:02 | NUR ---
ADMISSION ORDERS RECEIVED FROM DR NICHOLE.
[2018-10-12 20:00] VITALS: BP 100/66
--- NOTE | 2018-10-12 22:40 | NUR ---
NOTIFIED OF PATINET'S BP 92/52 MANUALLY. ALSO DISCUSSED PO NORCO/SEROQUEL GIVEN EARLIER PER ORDER. STATES JUST TO MONITOR BP FOR NOW, BUT DOES WANT TO CONSULT FOR HYPOTENSION/CHF.
--- NOTE | 2018-10-12 22:50 | NUR ---
CALLED 'S ANSWERING SERVICE REGARDING CONSULT. ARGELIA STONE. DISCUSSED PATIENT'S BP 92/52 MANUALLY. INSTRUCTED TO CALL IN THE MORNING.
[2018-10-13] VITALS (7 sets, daily range): BP systolic 78–115; BP diastolic 50–72
--- NOTE | 2018-10-13 04:25 | NUR ---
NOTIFIED OF PATIENT'S BP 78/50 MANUALLY. INSTRUCTED TO GIVE 500 CC FLUID BOLUS.
--- NOTE | 2018-10-13 04:39 | NUR ---
500 ML IV FLUID BOLUS INITIATED PER ORDER. RATE SET TO RUN AT 500 ML/HR DUE TO PATIENT HAVING FRAGILE IV SITE THAT TOOK MULTIPLE ATTEMPTS TO INITIATE. WILL RE-CHECK BLOOD PRESSURE FOLLOWING BOLUS COMPLETION. PATIENT DENIES ANY NEW/WORSENING SYMPTOMS. PATIENT ENCOURAGED TO USE CALL LIGHT IF SHE BEGINS TO FEEL INCREASED SOB OR ANY NEW SYMPTOMS. PATIENT VERBALIZES UNDERSTANDING.
--- NOTE | 2018-10-13 05:48 | NUR ---
NOTIFIED OF BP 84/50 MANUALLY FOLLOWING 500 CC FLUID BOLUS. NO NEW ORDERS RECEIVED.
--- NOTE | 2018-10-13 06:14 | NUR ---
NOTIFIED OF CONSULT. AWARE OF BP 84/52 AFTER 500 CC BOLUS. INSTRUCTED TO HOLD LISINOPRIL. DISCUSSED ' ORDER TO HOLD ALL HOME MEDS UNTIL SHE SEES PATIENT. AGREES WITH THIS. NO OTHER ORDERS RECEIVED.
[2018-10-13 06:53] LABS: HEMATOCRIT 32.2 % (37.0-47.0); HEMOGLOBIN 9.6 g/dl (12.0-16.0); LYMPH # 0.3 10*3/uL (1.3-4.4); LYMPH % 12.3 % (27.0-41.0); MEAN CELL VOLUME 88.7 fl (81.0-99.0); MEAN CORPUSCULAR HGB 26.4 pg (27.0-31.0); MEAN CORPUSCULAR HGB CONC 29.8 g/dl (33.0-37.0); MEAN PLATELET VOLUME 10.6 fl (9.6-12.3); MONO # 0.1 10*3/uL (0.1-1.0); MONO % 5.9 % (3.0-9.0); NEUT # 1.8 10*3/uL (2.3-7.9); NEUT % 81.3 % (47.0-73.0); PLATELET COUNT AUTOMATED 112 10*3/uL (130-400); RED BLOOD COUNT 3.63 10*6/uL (4.10-5.10); RED CELL DISTRI WIDTH 16.5 % (0-14.5); WHITE BLOOD COUNT 2.2 10*3/uL (4.8-10.8)
[2018-10-13 06:58] LABS: BUN 20 mg/dl (7-24); CHLORIDE 106 mmol/L (98-107); CREATININE 0.69 mg/dL (0.55-1.02); POTASSIUM 3.8 mmol/L (3.5-5.1); SODIUM 139 mmol/L (136-145)
--- NOTE | 2018-10-13 07:38 | NUR ---
PATIENT RESTING QUIETLY IN BED. NO DISTRESS NOTED. RESPIRATIONS EASY, REGULAR. 02 IN USE VIA 2LNC. PATIENT C/O SOB AT REST. HAWKINS PER PT. WILL CONTINUE TO MONITOR. CALL LIGHT WITHIN REACH.
--- NOTE | 2018-10-13 08:00 | NUR ---
Bar Gauger And Lubricator Tender in to talk to patient. Patient states lives at home with her sister. There are basement steps in the home. Physician: Dr. Oksana Gusman Pharmacy: [facility] health services: none Patient's level of ADLs: MINIMAL ASSIST Patient has working utilities: yes DME: cane, walker, O2 @ 2L nc, portable tanks, nebulizer, O2 supplier [employer] Follow-up physician's appointment after d/c: she prefers to make her own follow up appt after discharge Does patient want to access PORTAL?: no Discharge plan discussed with patient. She lives at home with her sister. She is independent in her ADLs and ambulates with either a cane or a walker. She would like a new walker as the one she currently has doesn't like to fold up anymore. She has portable O2 tanks at home but would like to get the one that makes its own O2. Informed she will have to speak to Dr. Gusman about qualifying for that O2 tank and she verbalized an understanding. Discussed home health care services and she denies any home needs at this time. She has had [facility] previously. When medically stable she will be discharged to home. LUCINDA GLASS
--- NOTE | 2018-10-13 08:15 | NUR ---
IN TO SEE PATIENT AND AWARE OF AM BP.
[2018-10-13 10:17] LABS: INTERNATIONAL NORM RATIO 1.4 (2.0-3.5)
--- NOTE | 2018-10-13 14:18 | NUR ---
NOTIFIED REGARDING CT RESULTS.
[2018-10-14] VITALS: BP 128/77
--- NOTE | 2018-10-14 03:57 | NUR ---
PATIENT SLEEPING. NO S/S OF DISTRESS NOTED. RESP EASY/REG ON 2L NC. CALL LIGHT IN REACH
[2018-10-14 06:33] LABS: HEMOGLOBIN 9.7 g/dl (12.0-16.0); LYMPH # 0.5 10*3/uL (1.3-4.4); LYMPH % 14.3 % (27.0-41.0); MEAN CELL VOLUME 88.2 fl (81.0-99.0); MEAN CORPUSCULAR HGB 25.9 pg (27.0-31.0); MEAN CORPUSCULAR HGB CONC 29.4 g/dl (33.0-37.0); MEAN PLATELET VOLUME 11.1 fl (9.6-12.3); MONO # 0.1 10*3/uL (0.1-1.0); MONO % 4.4 % (3.0-9.0); NEUT # 2.6 10*3/uL (2.3-7.9); NEUT % 80.7 % (47.0-73.0); PLATELET COUNT AUTOMATED 117 10*3/uL (130-400); RED BLOOD COUNT 3.74 10*6/uL (4.10-5.10); RED CELL DISTRI WIDTH 16.7 % (0-14.5); WHITE BLOOD COUNT 3.2 10*3/uL (4.8-10.8)
[2018-10-14 06:39] LABS: INTERNATIONAL NORM RATIO 1.3 (2.0-3.5)
[2018-10-14 06:42] LABS: ALBUMIN 3.2 gm/dl (3.1-4.5); BUN 24 mg/dl (7-24); CHLORIDE 109 mmol/L (98-107); POTASSIUM 4.5 mmol/L (3.5-5.1); SODIUM 140 mmol/L (136-145)
[2018-10-14 06:44] LABS: ALKALINE PHOSPHATASE 70 U/L (45-117); CREATININE 0.74 mg/dL (0.55-1.02); SGOT/AST 11 IU/L (3-35); SGPT/ALT 21 U/L (12-78); TOTAL PROTEIN 7.4 gm/dL (6.4-8.2)
[2018-10-14 08:00] VITALS: BP 118/72
--- NOTE | 2018-10-14 08:00 | NUR ---
Author'S Agent in to see patient. No new needs or request at this time. She denies any home needs. When medically stable she will be discharged to home.
--- NOTE | 2018-10-14 08:00 | NUR ---
IN TO SEE PATIENT.
--- NOTE | 2018-10-14 10:42 | NUR ---
Faxed walker prescription to [facility] at [phone]. Awaiting response.
[2018-10-14 12:00] VITALS: BP 113/59
[2018-10-14 16:00] VITALS: BP 116/62
--- NOTE | 2018-10-14 18:45 | NUR ---
Antibiotic administered late due to new IV site.
[2018-10-14 20:00] VITALS: BP 124/77
--- NOTE | 2018-10-14 20:29 | NUR ---
SCOT IN TO SEE PATIENT AT THIS TIME
[2018-10-15] VITALS: BP 98/55
[2018-10-15 05:43] LABS: BUN 26 mg/dl (7-24); CHLORIDE 103 mmol/L (98-107); POTASSIUM 4.1 mmol/L (3.5-5.1); SODIUM 137 mmol/L (136-145)
[2018-10-15 08:00] VITALS: BP 132/58
--- NOTE | 2018-10-15 09:00 | NUR ---
Guitar Repair Technician in to see patient. No new needs or request at this time. Informed patient walker prescription was sent to [facility] and she verbalized an understanding. She denies any home needs. When medically stable she will be discharged to home.
[2018-10-15 12:00] VITALS: BP 119/72
[2018-10-15 16:00] VITALS: BP 124/74
[2018-10-15 20:00] VITALS: BP 114/72
--- NOTE | 2018-10-15 20:58 | NUR ---
PLEASANT/COOPERATIVE FOR SHIFT ASSESSMENT. RESPIRATIONS EASY/REG ON 2L NC. NO VOICED COMPLAINTS AT THIS TIME. CALL LIGHT IN REACH
[2018-10-16] VITALS: BP 115/78
[2018-10-16 08:00] VITALS: BP 124/78
--- NOTE | 2018-10-16 08:00 | NUR ---
IV IS OCCLUDED.
--- NOTE | 2018-10-16 10:42 | NUR ---
MULTIPLE RN'S HAVE TRIED NEW IV WITHOUT SUCCESS.
[2018-10-16 12:00] VITALS: BP 131/85
--- NOTE | 2018-10-16 12:00 | NUR ---
DR. VERMA IS AWARE NO IV SITE MEDICATIONS CONVERTED.
[2018-10-16 16:00] VITALS: BP 119/78
[2018-10-16 20:00] VITALS: BP 128/78
--- NOTE | 2018-10-16 21:42 | NUR ---
PATIENT RESTING IN BED WITH NO NEEDS MADE. MED IN LOWEST POSITION, CALL LIGHT IN REACH
[2018-10-17] VITALS: BP 106/63
--- NOTE | 2018-10-17 01:06 | NUR ---
24 HR chart check completed.
[2018-10-17 07:58] VITALS: BP 112/69
[2018-10-17 12:00] VITALS: BP 117/72
[2018-10-17 16:00] VITALS: BP 111/63
--- NOTE | 2018-10-17 16:37 | NUR ---
DR. CHOUDHURY AWARE OF CONSULT.
--- NOTE | 2018-10-17 19:30 | NUR ---
ASSUMED CARE OF PT AT THIS TIME. PATIENT DENIES ANY NEEDS. WILL MONITOR. CALL LIGHT LEFT IN REACH.
[2018-10-17 20:00] VITALS: BP 122/86
[2018-10-18] VITALS (7 sets, daily range): BP systolic 95–125; BP diastolic 53–72
--- NOTE | 2018-10-18 08:12 | NUR ---
NOTIFIED DR NICHOLE OF CRITICAL INR OF 6.2, ORDERS RECIEVED.
[2018-10-18 09:15] LABS: BASO % 0.2 % (0.0-1.0); HEMATOCRIT 41.4 % (37.0-47.0); HEMOGLOBIN 12.5 g/dl (12.0-16.0); LYMPH # 1.5 10*3/uL (1.3-4.4); LYMPH % 13.1 % (27.0-41.0); MEAN CELL VOLUME 85.7 fl (81.0-99.0); MEAN CORPUSCULAR HGB 25.9 pg (27.0-31.0); MEAN CORPUSCULAR HGB CONC 30.2 g/dl (33.0-37.0); MEAN PLATELET VOLUME 11.3 fl (9.6-12.3); MONO # 0.7 10*3/uL (0.1-1.0); MONO % 6.5 % (3.0-9.0); NEUT # 8.8 10*3/uL (2.3-7.9); NEUT % 78.6 % (47.0-73.0); PLATELET COUNT AUTOMATED 202 10*3/uL (130-400); RED BLOOD COUNT 4.83 10*6/uL (4.10-5.10); RED CELL DISTRI WIDTH 17.2 % (0-14.5); WHITE BLOOD COUNT 11.2 10*3/uL (4.8-10.8)
[2018-10-18 09:20] LABS: INTERNATIONAL NORM RATIO 6.2 (2.0-3.5)
[2018-10-18 09:21] LABS: CHLORIDE 97 mmol/L (98-107); POTASSIUM 3.6 mmol/L (3.5-5.1); SODIUM 138 mmol/L (136-145)
[2018-10-18 09:32] LABS: BUN 33 mg/dl (7-24); CREATININE 0.89 mg/dL (0.55-1.02)
--- NOTE | 2018-10-18 11:02 | NUR ---
DR ELLISON ROUNDED AND SEEN PT. NOTIFIED HIM AT THIS TIME OF INR6.2 AND HOLD PLACED ON COUMADIN 8 MG.
--- NOTE | 2018-10-18 11:55 | NUR ---
MORPHINE 2 MG GIVEN FOR C/O GENERALIZED PAIN,02/05.
[2018-10-18 13:12] LABS: ABG BASE EXCESS 3.7 mmol/L (-2.0-2.0); ABG HCO3 27.7 mmol/l (22-26); ABG O2 SATURATION 92.2 % (95-97); ARTERIAL BLOOD GAS PH 7.444 (7.35-7.45)
--- NOTE | 2018-10-18 14:19 | NUR ---
NOTIFIED DR CHOUDHURY THAT PT HAD NO IV ACCESS AND MIDLINE RN'S WERE UNABLE TO OBTAIN ACCESS.ORDER RECIEVED FOR PICC LINE.SPOKE TO KAREN IN OR AND EXPLAINED PT INR WAS 6.2 THIS AM AND 10 MG ORAL VIT K GIVEN. PT WILL HAVE LABS IN AM AND OR WILL RE EVALUATE IN AM PRIOR TO PICC PLACEMENT.
--- NOTE | 2018-10-18 14:47 | NUR ---
NOTIFIED Nasima BABB THAT PT HAD INR 6.2. PICC PLACEMENT WILL BE IN AM DEPENDING ON AM LABS. UNABLE TO COMPLETE VQ SCAN,ORDERS RECIEVED.
--- NOTE | 2018-10-18 22:05 | NUR ---
SPOKE TO REGARDING SCHEDULED IV SOLUMEDROL ORDERED AND NO IV ACCESS. ALSO AWARE OF 60 MG PO PREDNISONE GIVEN TODAY (10/18) IN AFTERNOON. INSTRUCTED TO D/C IV SOLUMEDROL DOSE.
[2018-10-19 00:15] VITALS: BP 106/62
--- NOTE | 2018-10-19 02:15 | NUR ---
PATIENT TAKEN OFF BIPAP AND PLACED ON 2L NC PER REQUEST. RESPIRATORY NOTIFIED. PATIENT REQUESTING TO BE OFF FOR 1 HR. OKAY PER RESPIRATORY. WILL MONITOR.
[2018-10-19 04:45] VITALS: BP 100/57
--- NOTE | 2018-10-19 04:45 | NUR ---
PATIENT TOOK BIPAP OFF AT THIS TIME. O2 APPLIED AT 2L NC. POX 95% CURRENTLY. WILL MONITOR. RESPIRATORY THERAPIST NOTIFIED.
[2018-10-19 05:19] LABS: BUN 30 mg/dl (7-24); CHLORIDE 94 mmol/L (98-107); CREATININE 0.89 mg/dL (0.55-1.02); POTASSIUM 3.7 mmol/L (3.5-5.1); SODIUM 135 mmol/L (136-145)
[2018-10-19 06:08] LABS: BASO % 0.4 % (0.0-1.0); HEMOGLOBIN 12.3 g/dl (12.0-16.0); LYMPH # 0.8 10*3/uL (1.3-4.4); LYMPH % 7.8 % (27.0-41.0); MEAN CELL VOLUME 84.4 fl (81.0-99.0); MEAN CORPUSCULAR HGB 25.9 pg (27.0-31.0); MEAN CORPUSCULAR HGB CONC 30.8 g/dl (33.0-37.0); MEAN PLATELET VOLUME 11.4 fl (9.6-12.3); MONO # 0.5 10*3/uL (0.1-1.0); MONO % 4.5 % (3.0-9.0); NEUT # 8.8 10*3/uL (2.3-7.9); NEUT % 84.9 % (47.0-73.0); PLATELET COUNT AUTOMATED 180 10*3/uL (130-400); RED BLOOD COUNT 4.74 10*6/uL (4.10-5.10); RED CELL DISTRI WIDTH 17.2 % (0-14.5); WHITE BLOOD COUNT 10.3 10*3/uL (4.8-10.8)
[2018-10-19 06:14] LABS: INTERNATIONAL NORM RATIO 1.2 (2.0-3.5)
--- NOTE | 2018-10-19 06:15 | NUR ---
PO GLIMEPIRIDE ADMINISTERED PER ORDER PER PT REQUEST. BSG 161. STATES SHE'D RATHER TAKE IT NOW SO SHE CAN REST. PATIENT EDUCATED ON S/S OF LOW BS. VERBALIZES UNDERSTANDING. WILL MONITOR. CALL LIGHT LEFT IN REACH.
[2018-10-19 08:00] VITALS: BP 98/64
[2018-10-19 08:09] LABS: IMMUNOGLOBULIN M, QNT 121 mg/dL (26-217); RHEUMATOID ARTHRITIS FACTOR 23.6 IU/mL (0.0-13.9)
[2018-10-19 12:00] VITALS: BP 102/52
--- NOTE | 2018-10-19 12:58 | NUR ---
case management visits with patient, patient states she will be going to [facility] tomorrow am for a heart cath, patient denies any other needs
[2018-10-19 13:06] LABS: ALDOLASE 002030 8.2 U/L (3.3-10.3); ANGIOTENSIN-CONVERTING ENZYME <15 U/L (14-82)
[2018-10-19 14:07] LABS: IGG SUBCLASS 1 810 mg/dL (248-810); IGG SUBCLASS 2 125 mg/dL (130-555); IGG SUBCLASS 3 41 mg/dL (15-102); IGG SUBCLASS 4 5 mg/dL (2-96); IMMUNOGLOBULIN G, QNT 1026 mg/dL (700-1600)
--- NOTE | 2018-10-19 14:34 | NUR ---
REPORT OF CHEST XRAY RETO: PICC LINE PLACEMENT CALLED TO [facility] ON [address].
[2018-10-19 15:03] LABS: ATYPICAL PANCA <1:20 titer (Neg:<1:20); CYTOPLASMIC (C-ANCA) <1:20 titer (Neg:<1:20)
[2018-10-19 16:00] VITALS: BP 126/83
[2018-10-19 20:00] VITALS: BP 125/65
--- NOTE | 2018-10-19 23:19 | NUR ---
PT REFUSING TO BE PLACED ON BIPAP.
[2018-10-20] VITALS: BP 103/61
--- NOTE | 2018-10-20 07:37 | NUR ---
CALLED [employer] [employer] FUNCTION DENTAL ASSISTANT TO FIND OUT WHEN PT IS HAVING CATH. NO ANSWER.
--- NOTE | 2018-10-20 07:38 | NUR ---
CALLED DR. ELLISON HE WILL CALL TO ARRANGE IT WILL BE TODAY. WE WILL WAIT FOR A CALL.
--- NOTE | 2018-10-20 07:50 | NUR ---
SPOKE WITH DR. SCOT MONTES TO RESUME DIET, PT WILL HAVE CATH TOMORROW.
--- NOTE | 2018-10-20 07:50 | NUR ---
SANJAY CALLED STRESS TEST TOMMORROW.
--- NOTE | 2018-10-20 08:00 | NUR ---
DR. NICHOLE IN TO SEE PT.
[2018-10-20 08:15] VITALS: BP 102/64
--- NOTE | 2018-10-20 08:15 | NUR ---
RESTING IN BED. RESP-EASY AND REGULAR. OXYGEN IN USE. NO C/O AT THIS TIME. CALL LIGHT IN REACH. TOLERATED ROUTINE MEDS WITH NO PROBLEM. SEE SHIFT ASSESSMENT.
[2018-10-20] MEDS ORDERED: DOXYCYCLINE100 M3 PO (08:27)
[2018-10-20] MEDS ORDERED: PREDNISONE5 MG PO (08:27)
--- NOTE | 2018-10-20 10:40 | NUR ---
pt was assessed for home oxygen. pt qualified. pt at rest spo2 90% ra, hr 109, rr 16, b/p 117/61 pt ambulated spo2 88% ra placced pt on 2lnc pt ambulated spo2 91-92% 2lnc at rest spo2 96% 2lnc, hr 120, rr 18, b/p 127/71 nurse notified and notified
[2018-10-20 12:00] VITALS: BP 96/46
--- NOTE | 2018-10-20 12:00 | NUR ---
RESTING IN BED. BSG-110, SEE EMAR. NO C/O AT THIS TIME. CALL LIGHT IN REACH.
[2018-10-20 16:00] VITALS: BP 104/74
--- NOTE | 2018-10-20 18:43 | NUR ---
GAVE REPORT TO ELIZABETH AT [facility] ON PT. WAITING FOR AMBULANCE TO LEAVE
--- NOTE | 2018-10-20 19:18 | NUR ---
Discharge instructions reviewed with patient/family. Patient receptive and verbalizes understanding. Follow-up care arranged. Written instructions given to patient/family. PT ESCORTED VIA [facility] FOR HEART CATH IN AM. ESTEFANI OCHOA
[2018-10-25 11:03] LABS: IMMUNOGLOBULIN IgE 002170 9 IU/mL (6-495)
[2018-12-03] MEDS ORDERED: CIPROFLOXACIN750 MG PO (09:18)
== END 2018-10-20 19:18 | disposition other institution (70) | DRG 291 ==
LOC: ED 11:35 → EDHOLD 14:00 → 4E 14:00
PROVIDERS: Emergency Medicine; Internal Medicine Cardiovascular Disease; Internal Medicine Critical Care Medicine; ADMIT Internal Medicine
PROC: 02H633Z Insertion of Infusion Device into Right Atrium, Percutaneous Approach (ICD-10-PCS; principal; 2018-10-19)
PROC: 5A09357 Assistance with Respiratory Ventilation, Less than 24 Consecutive Hours, Continuous Positive Airway Pressure (ICD-10-PCS; principal; 2018-10-19)
DX: I11.0 Hypertensive heart disease with heart failure (principal); I50.31 Acute diastolic (congestive) heart failure; J44.1 Chronic obstructive pulmonary disease with (acute) exacerbation; J96.10 Chronic respiratory failure, unspecified whether with hypoxia or hypercapnia; J45.901 Unspecified asthma with (acute) exacerbation; D68.51 Activated protein C resistance; I31.3 Pericardial effusion (noninflammatory); Z68.41 Body mass index [BMI] 40.0-44.9, adult; I50.811 Acute right heart failure; Z96.649 Presence of unspecified artificial hip joint; I27.29 Other secondary pulmonary hypertension; R91.8 Other nonspecific abnormal finding of lung field; F32.9 Major depressive disorder, single episode, unspecified; I07.1 Rheumatic tricuspid insufficiency; E11.9 Type 2 diabetes mellitus without complications; M13.0 Polyarthritis, unspecified; I95.9 Hypotension, unspecified; E66.9 Obesity, unspecified; T45.515A Adverse effect of anticoagulants, initial encounter; Y92.89 Other specified places as the place of occurrence of the external cause; Z88.2 Allergy status to sulfonamides; Z88.8 Allergy status to other drugs, medicaments and biological substances; Z87.01 Personal history of pneumonia (recurrent); Z86.718 Personal history of other venous thrombosis and embolism; Z86.711 Personal history of pulmonary embolism; Z82.49 Family history of ischemic heart disease and other diseases of the circulatory system; Z83.3 Family history of diabetes mellitus; Q96.9 Turner's syndrome, unspecified; Z87.891 Personal history of nicotine dependence

== ENCOUNTER 2019-01-06 11:22 | Inpatient (IN) | payer MEDICARE ==
[~2019-01-06] VITALS: Ht 144.7 cm; Wt 89.4 kg
[2019-01-06] VITALS (8 sets, daily range): BP systolic 101–133; BP diastolic 53–80
--- NOTE | ~2019-01-06 | WRIGHTHP ---
[place], [place] PATIENT HISTORY AND PHYSICAL EXAM NAME: HAILEE JARA [facility] #: [id number] UNIT #: [id number] ROOM: 402 DOCTOR: RASHMI NICHOLE MD BIRTHDATE: [birth year] DOS: 01/06/2019 HISTORY OF PRESENT ILLNESS: The patient is 58 years old, very well known to us, states that for the last couple of days, she has noticed increasing shortness of breath, so decided to come into the Emergency Room. She was fine until about a day before this admission. Denies having any chest pains or palpitations, has a slight cough which is productive of scant amounts of sputum. Denies having any fever or chills. She arrived to the Emergency Room and was found to be having audible wheezes and so she was admitted to the hospital. This morning, she says that the restless legs bothered her at night, so she was unable to get good sleep. PAST MEDICAL HISTORY: Significant for: 1. Last hospitalization a month ago with acute exacerbation, and also had a bronchoscopy and Pseudomonas grew out of her sputum. 2. History of heavy nicotine abuse in the past. 3. Congestive heart failure with negative cardiac catheterization. 4. Pulmonary hypertension, secondary. 5. Type 2 diabetes mellitus. 6. Primary osteoarthritis, multiple joints. 7. Restless legs. 8. Benign hypertension. MEDICATIONS: The patient is currently on are Symbicort 160 one puff twice a day, BuSpar 5 b.i.d., vitamin D 50,000 units weekly, Farxiga 5 mg daily, glimepiride 4 mg daily, Mabel 7.5 q.i.d., lisinopril 10 daily, lovastatin 40 daily, omeprazole 20 daily, Seroquel 600 at bedtime, Requip 4 mg at bedtime, torsemide 10 daily, warfarin 4 mg daily, insulin, Tresiba 80 units subcutaneous daily. SOCIAL HISTORY: Nonsmoker right now. Denies using any alcohol. PHYSICAL EXAMINATION: GENERAL: She is awake and alert and oriented. VITAL SIGNS: Blood pressure is 97/67, pulse of 88, respirations 18, temperature 97.8. LUNGS: Diminished breath sounds, scattered wheezes. HEART: Regular. ABDOMEN: Obese, soft, nontender. EXTREMITIES: Trace edema bilaterally. LABORATORY DATA: CT of the chest shows no acute process, pulmonary hypertension noted. Three sets of troponins were negative. Lactic acid is normal. Comprehensive glucose 92, BUN and electrolytes normal, potassium 3.4. Liver enzymes normal. White cell count is 4.4, hemoglobin 10.3. ASSESSMENT AND PLAN: 1. Acute exacerbation of chronic obstructive pulmonary disease. The patient has been placed on IV steroids and antibiotics. 2. Acute tracheobronchitis. Antibiotics have been added. CT of the chest does [place], [place] PATIENT HISTORY AND PHYSICAL EXAM [facility]: [facility] #[facility] [id number] UNIT #: [id number] ROOM: [facility] DOCTOR: RASHMI NICHOLE MD BIRTHDATE: [birth year] not show any evidence of acute pneumonia. 3. Benign hypertension, controlled. 4. Type 2 diabetes mellitus, insulin-dependent, stable on medications. RASHMI NICHOLE MD CM:HISPHYS:PATIENT HISTORY AND PHYSICAL EXAMINATION [id number] RASHMI NICHOLE MD 01/07/19 0733 interface
--- NOTE | ~2019-01-06 | EKG ---
[place], [place] ELECTROCARDIOGRAM REPORT NAME: HAILEE JARA UNIT #: [id number] ROOM: 402 DOCTOR: SHEREE DRAFT REPORT BIRTHDATE: [birth year] [facility] Test Date: 2019-01-06 Test Time: 11:23:03 Pat Name: HAILEE JARA Department: Room: 402 Gender: F Fruit Bar Maker: Davina Ngo : 1960 Requested By: BRADEN MEHTA Order Number: [id number] Reading MD: Chandra Obrien MD Measurements Intervals [place] Rate: 106 P: 43 MT: 166 QRS: 149 QRSD: 104 T: -9 QT: 386 QTc: 513 Interpretive Statements Sinus tachycardia RAD,LPFB Borderline ST elevation, lateral leads Prolonged QT interval Compared to ECG 11/30/2018 16:04:49 ST (T wave) deviation now present Prolonged QT interval now present Sinus rhythm no longer present Intraventricular conduction delay no longer present Electronically Signed On 01-07-2019 4:17:16 PDT by Chandra Obrien MD CM:EKGRPT:ELECTROCARDIOGRAM REPORT [id number] BRADEN BENTLEY DRAFT REPORT BRADEN MEHTA M.D.
--- NOTE | ~2019-01-06 | DS ---
[place], [place] DISCHARGE SUMMARY NAME: HAILEE JARA [facility] #: [id number] UNIT #: [id number] ROOM: 402 DOCTOR: RASHMI NICHOLE MD BIRTHDATE: [birth year] DOS: 01/10/2019 The patient was admitted to the hospital with complaints of shortness of breath and discharged on 01/10/2019. DIAGNOSES: 1. Acute exacerbation of chronic obstructive pulmonary disease. 2. Pulmonary hypertension, secondary. 3. Benign hypertension. 4. Type 2 diabetes mellitus. 5. Factor V Leiden on long-term use of anticoagulants. HOSPITAL COURSE: The patient is very well known to us, comes in with complaints of difficulty breathing. Please refer to H and P for details. After admission, patient was placed on IV steroids, antibiotics, breathing treatments and oxygen supplementation. The patient did have workup including CT of the chest, which was negative. Dr. Petersen was consulted, agreed on the treatment plan with improvement in her symptoms. The patient was discharged to home to be followed up as an outpatient on home medications as well as Cipro 750 twice a day for 7 days. RASHMI NICHOLE MD CM:DISCHARG [id number] RASHMI NICHOLE MD 01/31/19 1641 interface
--- NOTE | ~2019-01-06 | PR ---
[place], [place] PROGRESS NOTE NAME: HAILEE JARA [facility] #: [id number] UNIT #: [id number] ROOM: 402 DOCTOR: HAKEEM VERMA MD BIRTHDATE: [birth year] DOS: 01/09/2019 SUBJECTIVE: The patient's breathing continues to improve. OBJECTIVE: GENERAL APPEARANCE: The patient is alert and oriented x 3, in no visible distress. Generalized weakness. VITAL SIGNS: Blood pressure 120/60, heart rate ranging between 80-100 beats per minute, temperature 98.4 degrees Fahrenheit. HEENT AND NECK: Exam within normal limits. CARDIOVASCULAR SYSTEM: Heart rate is regular in rate and rhythm. S1 and S2 normally audible. LUNGS: Clear to auscultation. ABDOMEN: Soft, nontender. No obvious organomegaly. Bowel sounds are present. Obesity. EXTREMITIES: Without significant cyanosis or edema. IMPRESSION: 1. The patient with acute exacerbation of chronic obstructive pulmonary disease, being treated with corticosteroids and antibiotics, and breathing is improving. 2. Type 2 diabetes mellitus, insulin requiring with corticosteroid-induced hyperglycemia. Blood sugars are ranging between 165-300 range. 3. INR subtherapeutic at 1.5. I will give her an extra dose of Coumadin today. 4. Mixed hyperlipidemia, treated with simvastatin. 5. Gastroesophageal reflux disease and esophagitis, asymptomatic with omeprazole. HAKEEM VERMA MD CM:PNTRANS [id number] HAKEEM VERMA MD 01/10/19 0047 interface
--- NOTE | ~2019-01-06 | PR ---
[place], [place] PROGRESS NOTE NAME: HAILEE JARA [facility] #: [id number] UNIT #: [id number] ROOM: 402 DOCTOR: RASHMI NICHOLE MD BIRTHDATE: [birth year] DOS: 01/10/2019 SUBJECTIVE: The patient is about the same, does not have any new complaints. She does have a moist sounding cough. OBJECTIVE: VITAL SIGNS: Blood pressure is 142/62, pulse of 93, respirations 20, temperature 98.3. LUNGS: Diminished breath sounds. Scattered rhonchi. HEART: Regular. ABDOMEN: Obese. EXTREMITIES: Without the edema. ASSESSMENT AND PLAN: 1. Acute exacerbation of chronic obstructive pulmonary disease with continued bronchospasm. We will ask Dr. Petersen for an opinion. 2. Secondary pulmonary hypertension, severe from chronic obstructive pulmonary disease. 3. Benign hypertension, controlled with negative cardiac catheterization showing no coronary artery disease. 4. Type 2 diabetes mellitus. Blood sugars controlled, last morning is 189. 5. Long-term use of anticoagulants. Protime is low. RASHMI NICHOLE MD CM:PNTRANS [phone] RASHMI NICHOLE MD 01/10/19 0659 interface
--- NOTE | ~2019-01-06 | PR ---
[place], [place] PROGRESS NOTE NAME: HAILEE JARA [facility] #: [id number] UNIT #: [id number] ROOM: 402 DOCTOR: HAKEEM VERMA MD BIRTHDATE: [birth year] DOS: 01/06/2019 SUBJECTIVE: The patient is complaining of shortness of breath off and on and chronic back pains. OBJECTIVE: VITAL SIGNS: Blood pressure 117/60, heart rate of 86 beats per minute, breathing 16-20 times per minute, temperature 98 degrees Fahrenheit. GENERAL APPEARANCE: The patient is alert and oriented x 3, in no visible distress. HEENT AND NECK: Exam within normal limits. CARDIOVASCULAR SYSTEM: Heart rate is regular in rate and rhythm. S1 and S2 normally audible. LUNGS: Somewhat decreased breath sounds on lung auscultation. ABDOMEN: Soft, nontender. No obvious organomegaly. Bowel sounds are present. EXTREMITIES: Without significant cyanosis or edema. IMPRESSION: 1. Acute exacerbation of severe underlying chronic obstructive pulmonary disease with oxygen dependence. The patient is being treated with corticosteroids and antibiotic along with bronchodilators. 2. Acute tracheobronchitis, being treated as mentioned above. 3. Benign essential hypertension, treated and controlled. 4. Type 2 diabetes mellitus, insulin requiring. Blood sugars being controlled. HAKEEM VERMA MD CM:PNTRANS [id number] HAKEEM VERMA MD 01/09/19 0309 interface
--- NOTE | ~2019-01-06 | CON ---
[place], [place] REPORT OF CONSULTATION NAME: HAILEE JARA [facility] #: [id number] UNIT #: [id number] ROOM: 402 DOCTOR: FRANCES THOMPSON MD BIRTHDATE: [birth year] DOS: 01/10/2019 PULMONARY CONSULTATION, EVALUATION AND MANAGEMENT REASON FOR CONSULTATION: Assess the patient's symptoms of shortness of breath. HISTORY OF PRESENT ILLNESS: This is 58-year-old female patient who has been known to me from the past. The patient has been admitted to the hospital under the care of Dr. Oksana Gusman. The patient presented to the Emergency Room and admitted to the hospital on 01/06/2019 with reported symptoms of having increased shortness of breath occurring at home. The shortness of breath was noted progressively worse. She has been noted cough, with only small amount of sputum expectoration with wheezing and chest tightness. The wheezing was described to be quite severe and the patient was admitted to the hospital for further care. The patient denies symptoms of chest pain or any hemoptysis. She has been receiving corticosteroids and bronchodilators for some time. The patient stating that she would like to be discharged home as she was feeling better. REVIEW OF SYSTEMS: CONSTITUTIONAL: Fatigue and tiredness noted without any symptoms of fever or chills. EYES: Denies any burning, redness, or tenderness. EARS, NOSE, THROAT SYMPTOMS: Denies sore throat, hoarseness, otalgia, postnasal drainage or epistaxis. CARDIOVASCULAR: Denies any symptoms of anginal pain, edema, pain of the lower extremities. GASTROINTESTINAL: The patient denies symptoms of dysphagia, nausea, vomiting, diarrhea, abdominal pain, hematemesis, melena, or hematochezia. SKIN: Denies abnormal lesions or rashes. MUSCULOSKELETAL: No acute joint pain, redness, or tenderness. Remaining systems were reviewed with the patient, they were noted all negative. PAST MEDICAL HISTORY: Known with: 1. History of uncomplicated severe persistent bronchial asthma. 2. Chronic obstructive pulmonary disease. 3. The patient with chronic hypoxic respiratory failure, need of oxygen supplementation of 2 liters nasal cannula. 4. Hypothyroidism. 5. History of restless leg syndrome. 6. Type 2 diabetes mellitus. 7. Hypercholesterolemia. 8. Essential hypertension. 9. Generalized anxiety disorder and neurosis. 10. Congestive heart failure. 11. Type 2 diabetes mellitus. 12. Gastroesophageal reflux disease. 13. History of mild pulmonary hypertension noted with cardiac catheterization, which was performed in 09/2018 at that time noted with mean pulmonary arterial [place], [place] REPORT OF CONSULTATION NAME: HAILEE JARA UNIT #: [id number] ROOM: [facility] DOCTOR: FRANCES THOMPSON MD BIRTHDATE: [birth year] pressures of 33. SOCIAL HISTORY: She is , has no children. Denies history of alcohol use, illicit drug use. Tobacco use is noted from age of [age] years old, 3-1/2 pack of cigarettes per day until 2011. FAMILY HISTORY: The patient's father at 62 years with complication of myocardial infarction. Mother at 80 years from complication of congestive heart failure. Two brothers also at younger age from myocardial infarction. PAST SURGICAL HISTORY: Noted: 1. Left total knee replacement. 2. Cardiac catheterization. 3. Left hip replacement. 4. Right total knee replacement. 5. Right heart catheterization done in [facility]. HOME MEDICATIONS: Symbicort, BuSpar, Vicodin ES, DuoNeb, Coumadin, lisinopril, lovastatin, Tresiba, potassium chloride, torsemide, Farxiga, ropinirole, omeprazole, dicyclomine, Amaryl, Seroquel, and vitamin D. The current medication administered was noted as Coumadin, torsemide, lisinopril, omeprazole, Amaryl, Solu-Medrol 30 mg q. 8 hours, ropinirole, Seroquel, simvastatin, Pulmicort Respules, DuoNeb, BuSpar, doxycycline and some other p.r.n. medication use. DRUG ALLERGY HISTORY: The patient noted as allergy to: 1. SULFA DRUGS. 2. PHENOBARBITAL. PHYSICAL EXAMINATION: GENERAL: This is a 58-year-old female currently noted comfortable at this time, resting in the bed without any distress. Height of 4 feet 9 inches, weight of 228 pounds, BMI 45.1 recorded. VITAL SIGNS: Normal temperature, respirations 18-20, heart rate of 105-84, blood pressure 142/64-123/62. Pulse oxygen saturation on 2 liters nasal cannula 96% saturation. HEENT: Examination shows head was atraumatic. Eyes nonicterus. NECK: Supple. CARDIOVASCULAR: S1, S2 audible. LUNGS: Noted without any wheezing or crackles at the present time. Breaths are noted mild to moderate diminished bilaterally. ABDOMEN: Soft, obese, nontender. EXTREMITIES: Without acute edema. MUSCULOSKELETAL: The patient noted without any acute deformities. CENTRAL NERVOUS SYSTEM: Noted intact. LABORATORY DATA: CBC on 01/06/2019, WBC count 4.4, hemoglobin 10.3, platelet count normal. PT/PTT noted with INR 1.5, PTT normal. CMP, normal BUN and [place], [place] REPORT OF CONSULTATION NAME: HAILEE JARA UNIT #: [id number] ROOM: 402 DOCTOR: MIKAEL THOMPSON MDM BIRTHDATE: [birth year] creatinine. Potassium 3.4 on 01/06/2019. The PT/INR that was done this morning was noted 1.8, which is subtherapeutic. Blood culture from 01/06/2019 showed no bacterial growth. DIAGNOSTIC STUDIES: CT of the chest that was done on this admission was noted with stable 4 mm nodule in the left upper lobe and 9 mm granuloma in the right lower lobe. Some scarring noted in left lower lobe, which is a chronic finding as well. IMPRESSION: 1. The patient will be admitted to the hospital for treatment of acute exacerbation of bronchial asthma. The patient has chronic obstructive pulmonary disease, exacerbation, combination. 2. Mild leukopenia as well. 3. Evidence of mild pulmonary hypertension, multifactorial related to pulmonary disease. 4. Obesity, possibly underlying obstructive sleep apnea disorder. 5. Chronic hypoxic respiratory failure, need of oxygen supplementation 2 liters nasal cannula. Other medical illness, which are noted several in the patient, which were non-pulmonary. PLAN OF TREATMENT: The patient will be continued on current medical management. Discharge planning could be started on tapering dose of prednisone, oral. Other medication conversion. The patient will be assessed in the office for the patient's sleep apnea disorder, has been already being treated for bronchial asthma, COPD with appropriate medications. She will be assessed prior to discharge to determine any adjustment in oxygen supplementation, and if necessary will be done accordingly. Other therapy, plan and management, additional treatment changes will be ordered based on the progression of the illness. Thanks for allowing me to participate in the care of this patient. FRANCES CHOUDHURY MD CM:CONSTR:REPORT OF CONSULTATION 1319 01/11/19 0026 interface
[~2019-01-06 11:22] MED LIST changes: +BUSPAR5 MG PO; +CIPROFLOXACIN750 MG PO; +DICYCLOMINE HCL10 MG PO; +DOXYCYCLINE100 M3 PO; +SYMB160 INH; +VITAMIN D50000 UNIT PO
[2019-01-06 11:44] LABS: BASO % 0.5 % (0.0-1.0); EOS # 0.1 10*3/uL (0.0-0.4); EOS % 1.4 % (1.0-4.0); HEMATOCRIT 34.2 % (37.0-47.0); HEMOGLOBIN 10.3 g/dl (12.0-16.0); LYMPH # 0.5 10*3/uL (1.3-4.4); MEAN CELL VOLUME 86.1 fl (81.0-99.0); MEAN CORPUSCULAR HGB 25.9 pg (27.0-31.0); MEAN CORPUSCULAR HGB CONC 30.1 g/dl (33.0-37.0); MONO # 0.3 10*3/uL (0.1-1.0); MONO % 7.4 % (3.0-9.0); NEUT # 3.5 10*3/uL (2.3-7.9); NEUT % 78.2 % (47.0-73.0); PLATELET COUNT AUTOMATED 142 10*3/uL (130-400); RED BLOOD COUNT 3.97 10*6/uL (4.10-5.10); RED CELL DISTRI WIDTH 20.5 % (0-14.5); WHITE BLOOD COUNT 4.4 10*3/uL (4.8-10.8)
[2019-01-06 11:56] LABS: INTERNATIONAL NORM RATIO 1.5 (2.0-3.5)
[2019-01-06 12:01] LABS: ALBUMIN 3.9 gm/dl (3.1-4.5); ALKALINE PHOSPHATASE 85 U/L (45-117); BUN 18 mg/dl (7-24); CHLORIDE 104 mmol/L (98-107); CREATININE 0.77 mg/dL (0.55-1.02); POTASSIUM 3.4 mmol/L (3.5-5.1); SGOT/AST 23 IU/L (3-35); SGPT/ALT 31 U/L (12-78); SODIUM 140 mmol/L (136-145); TOTAL PROTEIN 7.9 gm/dL (6.4-8.2)
[2019-01-06 12:06] LABS: TROPONIN I < 0.015 ng/ml (<0.045)
--- NOTE | 2019-01-06 18:06 | NUR ---
A 58, admitted to , under the services of RASHMI White MD with a diagnosis of COPD EXACERBATION. Chief complaint is SHORTNESS OF BREATH, CHEST PAIN. Patient arrived via stretcher from ER. Monitor applied. Initial assessment completed. Vital signs taken and recorded. RASHMI WHITE MD notified of admission to the unit. Orders received. See assessment for past medical history, medications and allergies. Patient and/or family oriented to unit. [address] [employer] visitation policy reviewed. Clothing/patient valuable form completed. AUSTIN GALEANO
--- NOTE | 2019-01-06 20:00 | NUR ---
CALL PLACED TO DR. NICHOLE T/O EMELY RECIEVED TO CONTINUE HOME MEDICATIONS,MEDICATIONS RECONCILED AND REVIEWED.
--- NOTE | 2019-01-06 22:36 | NUR ---
MEDICATED WITH HYDROCODONE APAP 7.5/325MG ORDERE FOR PAIN PAIN 8-/10
[2019-01-07] VITALS: BP 97/67
--- NOTE | 2019-01-07 03:23 | NUR ---
PATIENT RECEIVED NORCO FOR PAIN RATED 7/10.
--- NOTE | 2019-01-07 03:53 | NUR ---
24 HR chart check completed.
[2019-01-07 12:00] VITALS: BP 106/44
--- NOTE | 2019-01-07 12:06 | NUR ---
Associate Account Executive in to talk to patient. Patient states lives at home with sister. There are few steps in the home. Physician: mary Pharmacy: [facility] [place] [facility]: none Patient's level of ADLs: INDEPENDENT Patient has working utilities: all working DME: cane, walker, home oxygen and portable tanks from [facility] Follow-up physician's appointment after d/c: patient prefers to make their own follow up appointment Does patient want to access PORTAL?: no Discharge plan discussed with patient, patient lives at home with her sister, she is her caregiver, patient has a cane and walker but doesn't use them at present, she has home oxygen and portable tanks thru [facility], patient states she will be returning home when medically stable, discussed with her VNA and she declines any home needs at this time. MANUEL HARO
[2019-01-07 16:00] VITALS: BP 109/52
--- NOTE | 2019-01-07 19:57 | NUR ---
ASSUMED CARE OF PATIENT. SITTING ON SIDE OF BED RECEIVED BREATHING TREATMENT AT THIS TIME. NO S/S OF DISTRESS. CALL LIGHT WITHIN REACH.
[2019-01-07 20:00] VITALS: BP 111/54
[2019-01-08] VITALS: BP 115/73
--- NOTE | 2019-01-08 04:10 | NUR ---
03:30 PT SLEEPING. DA NOT GIVEN. PT DOES NOT WANT TO BE AWAKENED FOR DA.
--- NOTE | 2019-01-08 05:44 | NUR ---
PATIENT RECEIVED NORCO FOR PAIN RATED 7/10.
[2019-01-08 08:00] VITALS: BP 108/72
--- NOTE | 2019-01-08 11:00 | NUR ---
IV SITE INFILTRATED, NEW IV ESTABLISHED IN LEFT FOREARM #22G. PT TOLERATED WELL.
--- NOTE | 2019-01-08 11:30 | NUR ---
MEDICATED WITH NORCO PER PRN ORDER FOR COMPLAINTS OF CHRONIC BACK PAIN, WILL MONITOR FOR EFFECTIVENESS.
[2019-01-08 12:00] VITALS: BP 123/52
--- NOTE | 2019-01-08 13:00 | NUR ---
PT RESTING. EARLIER NORCO APPEARS EFFECTIVE.
[2019-01-08 16:00] VITALS: BP 117/60
--- NOTE | 2019-01-08 17:33 | NUR ---
MEDICATED WITH NORCO PER PRN ORDER FOR COMPLAINTS OF CHRONIC LOWER BACK PAIN, WILL MONITOR FOR EFFECTIVENESS.
[2019-01-08 20:00] VITALS: BP 127/67
--- NOTE | 2019-01-08 23:45 | NUR ---
PT GIVEN NORCO FOR C/O CHRONIC BACK PAIN, RATING PAIN AN "8". WILL MONITOR FOR EFFECTIVENESS. PT DENIES NEEDING ANYTHING ELSE AT THIS TIME. ALL SAFETY MEASURES IN PLACE. CALL LIGHT IN REACH.
[2019-01-09] VITALS: BP 146/74
--- NOTE | 2019-01-09 00:45 | NUR ---
NORCO EFFECTIVE AT THIS TIME.
--- NOTE | 2019-01-09 02:30 | NUR ---
PT RESTING IN BED, SLEEPING. RESPIRATIONS EASY AND UNLABORED ON 3L NC. NO S/S OF DISTRESS NOTED. ALL SAFETY MEASURES IN PLACE. CALL LIGHT IN REACH.
[2019-01-09 07:56] LABS: INTERNATIONAL NORM RATIO 1.5 (2.0-3.5)
[2019-01-09 08:00] VITALS: BP 118/70
--- NOTE | 2019-01-09 09:56 | NUR ---
MEDICATED WITH NORCO PER PRN ORDER FOR COMPLAINTS OF CHRONIC BACK PAIN. WILL MONITOR FOR EFFECTIVENESS.
--- NOTE | 2019-01-09 11:15 | NUR ---
PT RESTING IN BED, NO DISTRESS NOTED. EARLIER NORCO EFFECTIVE.
[2019-01-09 12:00] VITALS: BP 119/56
--- NOTE | 2019-01-09 14:21 | NUR ---
MEDICATED WITH NORCO FOR CHRONIC BACK PAIN. WILL MONITOR FOR EFFECTIVENESS.
[2019-01-09 16:00] VITALS: BP 139/75
--- NOTE | 2019-01-09 16:00 | NUR ---
PT RESTING, EARLIER NORCO EFFECTIVE.
--- NOTE | 2019-01-09 19:33 | NUR ---
24 HR chart check completed.
[2019-01-09 20:00] VITALS: BP 151/79
--- NOTE | 2019-01-09 23:11 | NUR ---
MEDICATED PT WITH PRN NORCO. PT'S STATES THAT HER PAIN LEVEL WAS 7/10. WILL REASSESS EFFECTIVENESS.
[2019-01-10] VITALS: BP 142/62
--- NOTE | 2019-01-10 00:11 | NUR ---
NORCO WAS EFFECTIVE, PT IS CURRENTLY SLEEPING COMFORTABLY. NO SIGNS OF DISTRESS.
--- NOTE | 2019-01-10 06:21 | NUR ---
NORCO WAS GIVEN FOR A PAIN LEVEL OF 6/10. PT STATES PAIN IS IN LOWER BACK. WILL REASSESS EFFECTIVENESS.
[2019-01-10 07:58] LABS: INTERNATIONAL NORM RATIO 1.8 (2.0-3.5)
--- NOTE | 2019-01-10 09:00 | NUR ---
case management visits with patient, patient will be going home when able and denies any home needs
--- NOTE | 2019-01-10 09:22 | NUR ---
DR. CHOUDHURY IN TO SEE PATIENT
[2019-01-10 09:30] VITALS: BP 106/60
--- NOTE | 2019-01-10 11:32 | NUR ---
RESPIRATORY WALKING PATIENT TO EVALUATE FOR OXYGEN NEED AT HOME
[2019-01-10 12:00] VITALS: BP 123/62
--- NOTE | 2019-01-10 12:13 | NUR ---
PT ASSESSED FOR HOME O2. PT CURRENTLY HAS HOME O2 AT 2 L NC. ASSESSMENT ORDERED TO DETERMINE POSSIBLITY OF MORE O2 REQUIREMENTS. SPO2 : RA REST= 90% BP 110/62 SPO2 RA AMBULATING = 88% JUANITO 8 SPO2 AMBULATING WITH 2 L NC: 94-97% POST AMBULATION BP 123/62 PT AQMBULATED APPROX 50 FEET. JUANITO 6 PT REQUIRE 2 L NC WITH AMBULATION. DR CHOUDHURY NOTIFIED. RN AWARE.
--- NOTE | 2019-01-10 14:40 | NUR ---
SPOKE TO DR. NICHOLE, AWARE THAT PER DR. CHOUDHURY PATIENT MAY BE DISCHARGED HOME TODAY WITH A TAPER OF PREDNISONE. DR NICHOLE SAID SHE WILL DISCHARGE PATIENT AND HAVE OFFICE CALL IN A RX FOR HOME GOING MEDICTIONS
--- NOTE | 2019-01-10 16:08 | NUR ---
Discharge instructions reviewed with patient. Patient receptive and verbalizes understanding. Follow-up care understood. Written instructions given to patient. tele removed, iv removed. pt discharged in wheelchair with oxygen at 2 liters, family waiting for patient at front. pt has no questions on discharge and understands follow up , understands that dr. hernandez was going to call in new rx to [facility] and for her to pick up and delivery driver JITENDRA STOUT
== END 2019-01-10 16:08 | disposition home or self-care (01) | DRG 202 ==
LOC: ED 11:22 → 4E 16:11 → EDHOLD 16:11 → 4E 18:31
PROVIDERS: Emergency Medicine; ADMIT Internal Medicine
DX: J45.51 Severe persistent asthma with (acute) exacerbation (principal); J44.1 Chronic obstructive pulmonary disease with (acute) exacerbation; J96.11 Chronic respiratory failure with hypoxia; Z68.42 Body mass index [BMI] 45.0-49.9, adult; J44.0 Chronic obstructive pulmonary disease with (acute) lower respiratory infection; J20.9 Acute bronchitis, unspecified; E11.65 Type 2 diabetes mellitus with hyperglycemia; E78.2 Mixed hyperlipidemia; K21.0 Gastro-esophageal reflux disease with esophagitis; G25.81 Restless legs syndrome; E03.9 Hypothyroidism, unspecified; E78.00 Pure hypercholesterolemia, unspecified; F41.1 Generalized anxiety disorder; Z96.642 Presence of left artificial hip joint; Z96.653 Presence of artificial knee joint, bilateral; E66.9 Obesity, unspecified; D72.819 Decreased white blood cell count, unspecified; M15.9 Polyosteoarthritis, unspecified; I11.0 Hypertensive heart disease with heart failure; I50.9 Heart failure, unspecified; I27.20 Pulmonary hypertension, unspecified; T38.0X5A Adverse effect of glucocorticoids and synthetic analogues, initial encounter; Y92.89 Other specified places as the place of occurrence of the external cause; Z88.2 Allergy status to sulfonamides; Z88.8 Allergy status to other drugs, medicaments and biological substances; Z87.01 Personal history of pneumonia (recurrent); Z82.49 Family history of ischemic heart disease and other diseases of the circulatory system; Z83.3 Family history of diabetes mellitus; Z87.891 Personal history of nicotine dependence; Z79.4 Long term (current) use of insulin; Z79.01 Long term (current) use of anticoagulants

== ENCOUNTER 2019-03-18 10:49 | Inpatient (IN) | payer MEDICARE ==
[~2019-03-18] VITALS: Ht 144.7 cm; Wt 92.0 kg
--- NOTE | ~2019-03-18 | PR ---
[place], [place] [facility]GRESS NOTE [id number] #: [id number] ROOM: 505 DOCTOR: KEI CLOUD MD,FRANCES BIRTHDATE: [birth year] DOS: 03/20/2019 SUBJECTIVE: She has been noted comfortable at this time, resting in the bed this morning of assessment, has not been reported any symptoms of chest pain. Shortness of breath were noted decreased in the last 24 hours. Denies symptoms of fever or chills. Denies symptoms of pain of the lower extremity. The respiratory symptoms in general are noted decreased as compared with yesterday's assessment. OBJECTIVE: VITAL SIGNS: For the patient, which have been recorded this morning as a normal temperature, respiratory rate of 20, heart rate 81, blood pressure 110/60. Pulse oxygen saturation on 2 liters nasal cannula recorded as 96% saturation. HEENT: Examination shows head was atraumatic. Eyes nonicterus. NECK: Supple. CARDIOVASCULAR: S1, S2 is audible. LUNGS: The patient was noted with expiratory wheezing, decreased from previous examination. The breaths are noted mildly diminished bilaterally. ABDOMEN: Soft, nontender. Bowel sounds present. EXTREMITIES: The patient noted without any acute edema. IMPRESSION: The patient with resolving acute exacerbation of chronic obstructive pulmonary disease and bronchial asthma with reduction of the respiratory symptoms, current medical management at this time was noted. PLAN OF THERAPY: Continuation of corticosteroids current dose. No changes for the next 24 hours in bronchodilators, oxygen supplementation, any antibiotics. Other therapy, plan of management will be changed based on progression of the illness. FRANCES CHOUDHURY MD CM:PNTRANS [id number] FRANCES CLOUD MD 03/20/19 1707 interface
--- NOTE | ~2019-03-18 | DS ---
[place], [place] DISCHARGE SUMMARY NAME: HAILEE JARA [facility] #: [id number] UNIT #: [id number] ROOM: 505 DOCTOR: RASHMI NICHOLE MD BIRTHDATE: [birth year] DOS: 03/21/2019 DIAGNOSES: 1. Acute exacerbation of chronic obstructive pulmonary disease. 2. Tachycardia from underlying exacerbation of chronic obstructive pulmonary disease. 3. Benign hypertension. 4. Pulmonary hypertension. 5. Chronic back pain. 6. Primary osteoarthritis on multiple joints with history of knee replacement and hip replacement. 7. Jean syndrome. 8. Primary insomnia. 9. Generalized anxiety disorder. 10. Restless legs. 11. Acute respiratory distress syndrome. DISCHARGE MEDICATIONS: Prednisone 5 mg twice daily for 10 days, Ceftin 250 twice daily for 5 days, Coreg 3.125 b.i.d., glimepiride 4 mg daily, omeprazole 20 daily, Seroquel 600 at bedtime, [place] 7.5 q.i.d. p.r.n., Requip 4 mg at bedtime, warfarin 4 mg daily, Farxiga 5 mg daily, lovastatin 40 daily, Tresiba 80 daily, lisinopril 10 daily, Symbicort 160 one puff twice a day, BuSpar 5 b.i.d., Bumex 2 mg daily, Daliresp 500 mcg daily, dicyclomine 10 b.i.d., mirtazapine 30 at bedtime. HOSPITAL COURSE: The patient is 58 years old who comes in with complaints of difficulty breathing. The patient was in respiratory distress, saturations in the low 90s on 3 liters of oxygen. He was also tachycardic with a heart rate of 136. Patient after being evaluated in the office, was sent to the hospital for admission was placed on IV steroids, breathing treatments, oxygen supplementation and IV antibiotics. Chest x-ray and routine labs were fairly within normal limits. Consultation with Dr. Petersen and Dr. Mcclain was obtained. The patient was continued on home medications. Protime is slightly on the subtherapeutic side. Blood sugars have been fairly controlled in the high 100s. The patient improved with the steroids, the bronchospasm is resolved. The tachycardia has slowed down. The patient is therefore discharged home to be followed up as an outpatient. DISCHARGE MEDICATIONS: As above. The patient followup in the office. [place], [place] DISCHARGE SUMMARY NAME: HAILEE JARA UNIT #: [id number] ROOM: 505 DOCTOR: RASHMI NICHOLE MD BIRTHDATE: [birth year] RASHMI NICHOLE MD CM:ISABEL [phone] RASHMI NICHOLE MD 03/21/19912 interface
--- NOTE | ~2019-03-18 | PR ---
[place], [place] PROGRESS NOTE NAME: HAILEE JARA [facility] #: [id number] UNIT #: [id number] ROOM: 505 DOCTOR: HAKEEM VERMA MD BIRTHDATE: [birth year] DOS: 03/20/2019 SUBJECTIVE: The patient is having a much better day today as compared to yesterday. She is less short of breath. PHYSICAL EXAMINATION: VITAL SIGNS: Blood pressure 110/60, heart rate 81 beats per minute, breathing 20 times per minute, temperature 98 degrees Fahrenheit. GENERAL APPEARANCE: Morbid obesity, BMI of 43.9. The patient is alert and oriented x 3, in no visible distress. HEENT AND NECK: Exam within normal limits. CARDIOVASCULAR SYSTEM: Heart rate is regular in rate and rhythm. S1 and S2 normally audible. LUNGS: Clear to auscultation. ABDOMEN: Soft, nontender. No obvious organomegaly. Bowel sounds are present. EXTREMITIES: Without significant cyanosis or edema. IMPRESSION: 1. The patient with exacerbation of chronic obstructive pulmonary disease with acute over chronic respiratory failure, feeling much better today. She is also being followed by Dr. Petersen. 2. Acute hypoxemic respiratory failure, being treated with bronchodilators, BiPAP and oxygen and improving. 3. Type 2 diabetes mellitus. Blood sugars being monitored and treated. 4. Subtherapeutic INR, for which the patient is to be given extra Coumadin. INR was 1.4. 5. Mixed hyperlipidemia, treated with simvastatin. HAKEEM VERMA MD CM:PNTRANS [phone] HAKEEM VERMA MD 03/21/19 0231 interface
--- NOTE | ~2019-03-18 | WRIGHTHP ---
[place], [place] PATIENT HISTORY AND PHYSICAL EXAM NAME: HAILEE JARA [facility] #: [id number] UNIT #: [id number] ROOM: [facility] DOCTOR: RASHMI NICHOLE MD BIRTHDATE: [birth year] DOS: 03/18/2019 HISTORY OF PRESENT ILLNESS: This patient is 58 years old. The patient comes to the office with complaints of increasing shortness of breath, exertional as well as rest. She also has noticed cough, which is productive of scant amounts of sputum. She denies having any chest pains, palpitations, does not have any abdominal pain, nausea, emesis. PAST MEDICAL HISTORY: 1. She was last hospitalized in 12/2018 with acute exacerbation of chronic obstructive pulmonary disease. 2. She also has secondary pulmonary hypertension. 3. Benign hypertension. 4. Type 2 diabetes mellitus, insulin-dependent. 5. Factor V Leiden mutation, on long-term use of anticoagulants. 6. Chronic back pain. 7. Primary osteoarthritis, multiple joints, status post knee and hip replacements. 8. Restless legs. HOME MEDICATIONS: Bumex 2 mg daily, BuSpar 5 b.i.d., Symbicort 160 two puffs twice a day, Farxiga 5 mg daily, dicyclomine 10 b.i.d., glimepiride 5 daily, [place] 7.5 q.i.d., Prinivil 10 daily, lovastatin 40 daily, mirtazapine 30 at bedtime, omeprazole 20 daily, Seroquel 600 at bedtime, Daliresp 500 mcg daily, Requip 4 mg at bedtime, warfarin 4 mg daily, Tresiba 80 units subcutaneous daily. SOCIAL HISTORY: Nonsmoker, but she has a history of 3 packs of cigarette smoker. Denies using any alcohol. PHYSICAL EXAMINATION: GENERAL: She is awake and alert and oriented, in significant respiratory distress. VITAL SIGNS: Respiratory rate about 24, heart rate 136, pulse ox 90% on 3 liters of oxygen, blood pressure 142/80. LUNGS: Diminished breath sounds. Scattered wheezes heard bilaterally. HEART: Regular, tachycardic. ABDOMEN: Obese, soft. EXTREMITIES: With trace edema bilaterally. LABORATORY DATA: No labs available yet. ASSESSMENT AND PLAN: 1. Acute exacerbation of chronic obstructive pulmonary disease. The patient has been admitted for IV steroids and antibiotics. Chest x-ray, routine labs. Consultation with Dr. Petersen has been obtained. 2. Acute hypoxic respiratory failure in a patient who has chronic respiratory failure with acute respiratory distress syndrome. The patient is placed on continued oxygen supplementation, breathing treatments, BiPAP if necessary. 3. Pulmonary hypertension secondary. Dr. Mcclain has been consulted. [place], [place] PATIENT HISTORY AND PHYSICAL EXAM NAME: HAILEE JARA UNIT #: [id number] ROOM: [facility] DOCTOR: RASHMI NICHOLE MD BIRTHDATE: 60 4. Type 2 diabetes mellitus, insulin-dependent. Blood sugars to be ordered and checked twice daily, coverage scale. RASHMI NICHOLE MD CM:HISPHYS:PATIENT HISTORY AND PHYSICAL EXAMINATION [id number] RASHMI NICHOLE MD 03/18/19 1225 interface
--- NOTE | ~2019-03-18 | PR ---
[place], [place] PROGRESS NOTE NAME: HAILEE JARA [facility] #: [id number] UNIT #: [id number] ROOM: 505 DOCTOR: HAKEEM VERMA MD BIRTHDATE: [birth year] DOS: 03/19/2019 1. Acute exacerbation of chronic obstructive pulmonary disease. Her breathing has started to improve with treatment. Dr. Petersen is following. 2. Acute hypoxemic respiratory failure, being treated with bronchodilators, BiPAP and oxygen and improving. 3. Type 2 diabetes mellitus. Blood sugars being monitored and treated. 4. The patient on Coumadin with subtherapeutic INR. We will follow protimes. 5. Mixed hyperlipidemia, treated with simvastatin. HAKEEM VERMA MD CM:PNTRANS [id number] HAKEEM VERMA MD 03/19/19 2353 interface
--- NOTE | ~2019-03-18 | PR ---
[place], [place] PROGRESS NOTE [id number] UNIT #: [id number] ROOM: 505 DOCTOR: FRANCES THOMPSON MD BIRTHDATE: [birth year] DOS: 03/21/2019 SUBJECTIVE: The patient was noted comfortable at this time, resting in the bed this morning of assessment. She was planned for possible home discharge for today. The respiratory symptom has been noted significant reduction in the last 24 hours. There were no symptoms of fever or chills, coughing or any sputum expectoration noted this morning. PHYSICAL EXAMINATION: GENERAL: She was comfortably resting in the bed this morning of assessment. VITAL SIGNS: Recorded normal temperature, respiratory rate 18, heart rate 84, blood pressure 142/76. The pulse oxygen saturation on 2 liters 92%-100% saturation. HEENT: Chronic obesity. NECK: Supple. CARDIOVASCULAR: S1, S2 audible. LUNGS: Noted moderate reduction of breath sounds was noted bilaterally without any wheezing or crackles. ABDOMEN: Soft, nontender. Bowel sounds present. EXTREMITIES: No new change. LABORATORY DATA: Chest x-ray done this morning was noted without any acute pulmonary abnormalities. IMPRESSION: 1. The patient with resolving acute exacerbation of chronic obstructive pulmonary disease as well as bronchial asthma gradually and progressively. 2. Chronic obesity. PLAN OF TREATMENT: Follow the recommendation of Dr. Oksana Gusman for discharge planning. Tapering prednisone, oral antibiotic will be administered. She was advised to continue medications for COPD, bronchial asthma. Office followup visit as previously scheduled will be kept. [place], [place] PROGRESS NOTE [facility]: [facility] [id number] UNIT #: [id number] ROOM: 505 DOCTOR: FRANCES THOMPSON MD BIRTHDATE: [birth year] FRANCES CHOUDHURY MD CM:PNTRANS [phone] FRANCES CLOUD MD 03/21/19 1608 interface
--- NOTE | ~2019-03-18 | CON ---
[place], [place] REPORT OF CONSULTATION NAME: HAILEE JARA UNIT #: [id number] ROOM: [facility] DOCTOR: ARGELIA JIMENESNELSON BIRTHDATE: [birth year] DOS: 03/20/2019 I am covering for Dr. Mcclain. HISTORY OF PRESENT ILLNESS: The patient apparently had a right and left about 4 months ago. The patient was admitted with increasing shortness of breath. The patient has already been seen by the wet mixer also. The patient presented with significant exertional dyspnea and hypoxemia. The patient states that she does have a leaky valve. We will try to obtain the heart catheterization report from [place]. Dr. Mcclain did it about 4 months ago, also had an echocardiogram in the past. We will try to obtain that results also. The patient said that she did not have any significant coronary artery disease. No stents were done. She denies any chest discomfort. REVIEW OF SYSTEMS: CONSTITUTIONAL: No fever, no chills. HEENT: No visual disturbances. CARDIOVASCULAR: No angina. GASTROINTESTINAL: No nausea, no vomiting. RESPIRATORY SYSTEM: Significant shortness of breath. PAST MEDICAL HISTORY: Significant for chronic hypoxic respiratory failure, COPD, hypothyroidism, restless leg syndrome, diabetes mellitus, hypertension, hyperlipidemia, obesity. The patient stated that she does have a leaky valve, history of mild pulmonary hypertension, which has been confirmed with cardiac catheterization in September. SOCIAL HISTORY: Denies any tobacco abuse. The patient was a heavy smoker. She discontinued in 2011. PAST SURGICAL HISTORY: Catheterization, right and left hip replacement, knee replacement. FAMILY HISTORY: Noncontributory. HOME MEDICATIONS: Include insulin, lisinopril, Bumex, Amaryl, Coumadin, atorvastatin. ALLERGIES: SULFA. PHYSICAL EXAMINATION: A 58-year-old female, in mild respiratory distress. GENERAL: The patient has factor V Leiden mutation for which she is on anticoagulation long-term on Coumadin, but she is in sinus rhythm. VITAL SIGNS: Blood pressure is 110/70. HEENT: Unremarkable. LUNGS: Diminished air entry. HEART: Sounds are regular. ABDOMEN: Obese, soft, nontender. EXTREMITIES: Intact pulses. NEUROLOGIC: Stable. [place], [place] REPORT OF CONSULTATION NAME: HAILEE JARA UNIT #: [id number] ROOM: [facility] DOCTOR: NELSON STOUT MD BIRTHDATE: [birth year] LABORATORY DATA: Shows hemoglobin 9.6, hematocrit 32.2. Electrolytes are normal. Creatinine is 0.6. Chest x-ray done on the shows a small left-sided pleural effusion, left basilar consolidation. IMPRESSION: The patient with hypoxia, chronic respiratory failure, acute exacerbation of asthma, obesity, exacerbation of chronic obstructive pulmonary disease. RECOMMENDATIONS: We will try to obtain and review the heart catheterization report and the right heart pressures. Continue the present medications as ordered. We will review the echocardiogram also and we will follow up. NELSON STOUT MD CM:CONSTR:REPORT OF CONSULTATION 1203 03/20/19 1642 interface
--- NOTE | ~2019-03-18 | CON ---
[place], [place] REPORT OF CONSULTATION NAME: HAILEE JARA [facility] #: [id number] UNIT #: [id number] ROOM: 505 DOCTOR: KEI CLOUD MDFRANCES BIRTHDATE: [birth year] DOS: 03/19/2019 PULMONARY CONSULTATION, EVALUATION AND MANAGEMENT CONSULTATION REQUESTED BY: Dr. Oksana Gusman. REASON FOR CONSULTATION: For assessment of abnormal respiratory symptoms and shortness of breath. HISTORY OF PRESENT ILLNESS: This is a 58-year-old white female with multiple medical problems, presented in the office of primary care physician, Dr. Oksana Gusman yesterday. She had been noted significant exertional hypoxia in the office. The patient reported symptoms of coughing with a scant amount of sputum expectoration couple of days ago. The shortness of breath also resulting from that, which has been noted with gradual increase. The patient denies symptoms of chest pain with that. She has been admitted to the hospital for further care by Dr. Oksana Gusman. She denies symptoms of fever or chills. Denies symptoms of hemoptysis. She denies symptoms of headache or diplopia. She denies symptoms of orthopnea with current symptom. She stated partial improvement in symptoms since hospitalization. REVIEW OF SYSTEMS: CONSTITUTIONAL: Fatigue and tiredness reported without any symptoms of fever or chills. EYES: Denies any burning, redness, or tenderness. EARS, NOSE, THROAT, EAR, NOSE, THROAT SYMPTOMS: No sore throat, hoarseness, otalgia, postnasal drainage or epistaxis. CARDIOVASCULAR: Denies angina pain, edema, or pain of the lower extremities. GASTROINTESTINAL SYMPTOMS: Denies dysphagia, abnormal weight loss, nausea, vomiting, diarrhea, abdominal pain, hematemesis, or melena. GENITOURINARY: No dysuria, suprapubic pain, or hematuria. MUSCULOSKELETAL: No joint pain, redness, tender deformities stated. SKIN: No lesions or rashes. CENTRAL NERVOUS SYSTEM: Denies dizziness, headache, diplopia or syncopal episodes. Remaining systems were reviewed. They were noted all negative. PAST MEDICAL HISTORY: Known as; 1. Uncomplicated severe persistent bronchial asthma. 2. COPD. 3. Chronic hypoxic respiratory failure, use of oxygen supplementation 2 liters nasal cannula. 4. Hypothyroidism. 5. Restless leg syndrome. 6. Type 2 diabetes mellitus. 7. Hypercholesterolemia. 8. General anxiety disorder. 9. Essential hypertension. 10. Acute congestive heart failure, preserved ejection fraction. [place], [place] REPORT OF CONSULTATION [id number] UN[facility] #: [id number] ROOM: [facility] DOCTOR: KEI CLOUD MDFRANCES BIRTHDATE: 60 11. Gastroesophageal reflux disease. 12. Mild pulmonary hypertension, which has been confirmed with cardiac catheterization in 09/2018. SOCIAL HISTORY: The patient is , lives at home. There was no history of alcohol use, illicit drug use reported. Tobacco use was known from age of [age] years old as a 3.5 pack of cigarettes per day, discontinued in 2011. PAST SURGICAL HISTORY: 1. Left total knee replacement. 2. Cardiac catheterization, right and the left heart. 3. Left hip replacement. 4. Right total knee replacement. FAMILY HISTORY: The patient's father at the age 60 due to complication of myocardial infarction. Mother at the age of 8080 years old, complication of myocardial infarction. CURRENT MEDICATIONS: Administered were noted as Requip, Seroquel, Lantus insulin, Daliresp, lisinopril, Bumex, Amaryl, Remeron, dicyclomine, Coumadin, simvastatin, Solu-Medrol 30 mg q. 8 hours, DuoNeb q. 4 hours and some other p.r.n. meds. DRUG ALLERGIES: NOTED , 1. SULFA DRUG. 2. PHENOBARBITAL. PHYSICAL EXAMINATION: GENERAL: A 58-year-old female patient who has been currently sitting on side of bed without any acute major distress at noon. The height recorded with the nursing staff at the current admission with height as 4 feet 9 inches, weight of 91 kg, BMI 43. VITAL SIGNS: For the patient, which have recorded shows a normal temperature since last 24 hours, respiratory rate 18-20, heart rate of 110-105, blood pressure 117/67-107/65. HEENT: Shows head was atraumatic. Eyes nonicterus. NECK: Supple. Decreased posterior pharyngeal space. CARDIOVASCULAR SYSTEM: S1, S2 audible. LUNGS: The patient noted with decreased breath sounds in the lungs bilaterally with expiratory wheezing, no crackles. ABDOMEN: Soft, nontender. Bowel sounds present. EXTREMITIES: The patient was noted without any acute edema, clubbing or cyanosis. MUSCULOSKELETAL: Without acute deformities. CENTRAL NERVOUS SYSTEM: Noted essentially intact. LABORATORY DATA: The PT/INR yesterday noted 1.4, which was done this morning was therapeutic. Yesterday INR 1.6 is noted subtherapeutic. BMP this morning is normal BUN and creatinine. CBC was also noted as normal platelet count, WBC were 4.5, hemoglobin 9.6. The chest x-ray, PA and lateral view that was done [place], [place] REPORT OF CONSULTATION NAME: HAILEE JARA UNIT #: [id number] ROOM: [facility] DOCTOR: KEI CLOUD MD,FRANCES BIRTHDATE: [birth year] 03/18/2019 was reviewed, shows a small basilar area of atelectasis with the pleural fluid cannot be completely excluded. The arterial blood gas that was ordered, done this noon pH of 7.42, pCO2 36, pO72 on 2 liter nasal cannula. IMPRESSION: 1. The patient has been admitted to the hospital with acute exacerbation of chronic obstructive pulmonary disease, acute bronchitis, small pleural fluid with atelectasis noted left side, pneumonia cannot be completely excluded involving the left lower lobe. 2. Chronic obesity. 3. Acute exacerbation of bronchial asthma. 4. The patient with chronic morbid obesity as well. 5. Past history of heavy nicotine abuse, discontinued in 2011. PLAN OF MANAGEMENT: At this time, continue the patient's current bronchodilators, oxygen supplementation as ongoing antibiotic. No change in treatment will be necessary. Monitor culture results. Sputum culture was ordered. There was no need of BiPAP. Titrate oxygen supplementation, maintain pulse oxygen saturation 90% or greater. Also, obtain another chest x-ray in the next 48 hours to determine the progression of the current pleural fluid and other abnormalities. At this time, there was no indication for thoracentesis as the patient is with minimal pleural fluid. FRANCES CHOUDHURY MD CM:CONSTR:REPORT OF CONSULTATION 1434 03/20/19 0227 interface
--- NOTE | ~2019-03-18 | PR ---
[place], [place] PROGRESS NOTE NAME: [facility] [id number] UNIT #: [id number] ROOM: 505 DOCTOR: RASHMI NICHOLE MD BIRTHDATE: [birth year] DOS: 03/21/2019 SUBJECTIVE: The patient is doing fine without any complaint. Denies any chest pains, palpitations or shortness of breath. OBJECTIVE: VITAL SIGNS: This morning graphic trend shows a pressure 130/83, pulse of 93, respirations 20, temperature 98.2. LUNGS: Clear this morning. HEART: Regular. ABDOMEN: Obese, soft, nontender. EXTREMITIES: Without any edema. ASSESSMENT AND PLAN: 1. Acute exacerbation of chronic obstructive pulmonary disease, improving. The bronchospasm is resolved. The plan is to discharge her to home today. Follow up as an outpatient. 2. Tachycardia from multifocal, most likely from the severe COPD and distress, which seems to have resolved. The heart rate is in the low 70s-80s. The plan is to discharge to home today. Followup as an outpatient. RASHMI NICHOLE MD CM:PNTRANS [id number] RASHMI NICHOLE MD 03/21/[id number] interface
[~2019-03-18 10:49] MED LIST changes: +REQUIP XL4 MG PO
[2019-03-18] MEDS ORDERED: BUMETANIDE2 MG PO (11:07)
[2019-03-18] MEDS ORDERED: CYCLOBENZAPRIN7.5 M2 PO (11:09)
[2019-03-18] MEDS ORDERED: DALIRESP500 MC1 PO (11:10)
[2019-03-18] MEDS ORDERED: DICYCLOMINE HCL10 MG PO (11:13)
[2019-03-18] MEDS ORDERED: PRILOSEC20 M1 PO (11:16)
[2019-03-18] MEDS ORDERED: MIRTAZAPINE30 M2 PO (11:17)
[2019-03-18] MEDS ORDERED: ROPINIROLE HYDRO2 MG PO (11:18)
--- NOTE | 2019-03-18 11:27 | NUR ---
MEDS RECONCILED AT BEDSIDE AND WITH LIST.
[2019-03-18 11:30] VITALS: BP 117/67
[2019-03-18 13:22] LABS: INTERNATIONAL NORM RATIO 1.6 (2.0-3.5)
[2019-03-18 13:27] LABS: BUN 16 mg/dl (7-24); CHLORIDE 105 mmol/L (98-107); CREATININE 0.67 mg/dL (0.55-1.02); SODIUM 140 mmol/L (136-145)
--- NOTE | 2019-03-18 13:43 | NUR ---
DR. CHOUDHURY NOTIFIED OF CONSULT. ORDERS OBTAINED.
--- NOTE | 2019-03-18 14:58 | NUR ---
DR. ELLISON NOTIFIED OF CONSULT
[2019-03-18 16:00] VITALS: BP 124/76
[2019-03-18 20:00] VITALS: BP 133/78
[2019-03-18 20:53] LABS: ABG BASE EXCESS -1.2 mmol/L (-2.0-2.0); ABG HCO3 23.4 mmol/l (22-26); ABG O2 SATURATION 95.3 % (95-97); ARTERIAL BLOOD GAS PCO2 40.7 mmHg (35-45); ARTERIAL BLOOD GAS PH 7.376 (7.35-7.45); ARTERIAL BLOOD GAS PO2 81.1 mmHg (80-90)
--- NOTE | 2019-03-18 22:00 | NUR ---
PT STATES THAT SHE DOES NOT CHECK HER SUGAR AT NIGHT ONLY IN THE MORNING AND BEFORE DINNER.
[2019-03-19] VITALS: BP 118/68
[2019-03-19 07:39] LABS: HEMATOCRIT 32.2 % (37.0-47.0); HEMOGLOBIN 9.6 g/dl (12.0-16.0); LYMPH # 0.4 10*3/uL (1.3-4.4); LYMPH % 8.5 % (27.0-41.0); MEAN CELL VOLUME 85.9 fl (81.0-99.0); MEAN CORPUSCULAR HGB 25.6 pg (27.0-31.0); MEAN CORPUSCULAR HGB CONC 29.8 g/dl (33.0-37.0); MEAN PLATELET VOLUME 11.2 fl (9.6-12.3); MONO # 0.2 10*3/uL (0.1-1.0); MONO % 3.6 % (3.0-9.0); NEUT # 3.9 10*3/uL (2.3-7.9); NEUT % 87.2 % (47.0-73.0); PLATELET COUNT AUTOMATED 159 10*3/uL (130-400); RED BLOOD COUNT 3.75 10*6/uL (4.10-5.10); RED CELL DISTRI WIDTH 18.2 % (0-14.5); WHITE BLOOD COUNT 4.5 10*3/uL (4.8-10.8)
[2019-03-19 08:00] VITALS: BP 106/60
[2019-03-19 08:09] LABS: INTERNATIONAL NORM RATIO 1.4 (2.0-3.5)
[2019-03-19 12:00] VITALS: BP 107/65
[2019-03-19 12:21] LABS: ABG BASE EXCESS -0.6 mmol/L (-2.0-2.0); ABG HCO3 23.3 mmol/l (22-26); ABG O2 SATURATION 95.3 % (95-97); ARTERIAL BLOOD GAS PCO2 36.2 mmHg (35-45); ARTERIAL BLOOD GAS PH 7.42 (7.35-7.45); ARTERIAL BLOOD GAS PO2 72.1 mmHg (80-90)
[2019-03-19 16:00] VITALS: BP 112/62
[2019-03-19 20:00] VITALS: BP 109/76
--- NOTE | 2019-03-19 21:10 | NUR ---
CALLED DR VERMA REGARDING PT'S REQUEST FOR FLEXERIL
--- NOTE | 2019-03-19 23:59 | NUR ---
FLEXERIL PULLED PER PT REQUEST. UPON ENTERING ROOM PT IS FOUND TO BE ASLEEP AT THIS TIME. FLEXERIL WASTED WITH BEATRIZ CALDWELL.
[2019-03-20] VITALS: BP 112/53
[2019-03-20 06:43] LABS: INTERNATIONAL NORM RATIO 1.4 (2.0-3.5)
--- NOTE | 2019-03-20 07:15 | NUR ---
Pt did not want a breathing tx at this time. Pt told me to stop back during my next round.
[2019-03-20 08:00] VITALS: BP 110/60
[2019-03-20 12:00] VITALS: BP 94/48
--- NOTE | 2019-03-20 15:27 | NUR ---
24 HR chart check completed.
[2019-03-20 16:00] VITALS: BP 115/56
--- NOTE | 2019-03-20 18:24 | NUR ---
ENTERED PT'S ROOM TO CHECK A BLOOD SUGAR, BECAUSE PT STATED SHE WAS ORDERING HER DINNER AROUND [id number]. PT STATED THAT SINCE SHE ALREADY ATE SHE DID NOT WANT IT CHECKED RIGHT NOW, IT CAN BE CHECKED LATER PER PT.
--- NOTE | 2019-03-20 18:59 | NUR ---
24 HR CHART CHECK COMPLETE.
[2019-03-20 20:00] VITALS: BP 121/66
[2019-03-21] VITALS: BP 130/83
[2019-03-21 06:00] LABS: INTERNATIONAL NORM RATIO 1.5 (2.0-3.5)
--- NOTE | 2019-03-21 07:55 | NUR ---
PT RESTING IN BED. NO DISTRESS NOTED. WILL MONITOR
[2019-03-21 08:00] VITALS: BP 142/76
[2019-03-21] MEDS ORDERED: PREDNISONE5 MG PO (08:45)
[2019-03-21] MEDS ORDERED: CEFUROXIME AXE250 MG PO (08:45)
[2019-03-21] MEDS ORDERED: COREG3.125 MG PO (08:46)
--- NOTE | 2019-03-21 11:00 | NUR ---
Dye Range Tender in to talk to patient. Patient states lives at home with her sister. There are basement steps in the home. Physician: Dr. Oksana Gusman Pharmacy: [facility] health services: has had [facility] previously Patient's level of ADLs: MINIMAL ASSIST Patient has working utilities: yes DME: cane, walker, O2 @ 2L nc, portable tanks, nebulizer, O2 supplier [facility] Follow-up physician's appointment after d/c: she prefers to make her own follow up appt after discharge Does patient want to access PORTAL?: no Discharge plan discussed with patient. She lives at home with her sister. She is independent in her ADLs and ambulates with either a cane or a walker. Discussed home health care services and she denies any home needs at this time. When medically stable she will be discharged to home. Her sister will provide transportation on discharge. LUCINDA GLASS
--- NOTE | 2019-03-21 11:41 | NUR ---
Discharge instructions reviewed with patient/family. Patient receptive and verbalizes understanding. Follow-up care arranged. Written instructions given to patient/family. LG WILSON
== END 2019-03-21 11:41 | disposition home or self-care (01) | DRG 189 ==
LOC: 5E 10:49
PROVIDERS: Internal Medicine; Internal Medicine Critical Care Medicine; ADMIT Internal Medicine
DX: J96.21 Acute and chronic respiratory failure with hypoxia (principal); J44.1 Chronic obstructive pulmonary disease with (acute) exacerbation; I50.32 Chronic diastolic (congestive) heart failure; J45.51 Severe persistent asthma with (acute) exacerbation; J98.11 Atelectasis; J44.0 Chronic obstructive pulmonary disease with (acute) lower respiratory infection; Z68.41 Body mass index [BMI] 40.0-44.9, adult; G89.29 Other chronic pain; F41.1 Generalized anxiety disorder; E78.2 Mixed hyperlipidemia; E11.9 Type 2 diabetes mellitus without complications; J20.9 Acute bronchitis, unspecified; Z96.653 Presence of artificial knee joint, bilateral; Z96.642 Presence of left artificial hip joint; E66.01 Morbid (severe) obesity due to excess calories; I27.20 Pulmonary hypertension, unspecified; M15.9 Polyosteoarthritis, unspecified; K21.9 Gastro-esophageal reflux disease without esophagitis; F51.01 Primary insomnia; I11.0 Hypertensive heart disease with heart failure; G25.81 Restless legs syndrome; E78.00 Pure hypercholesterolemia, unspecified; E03.9 Hypothyroidism, unspecified; Z87.891 Personal history of nicotine dependence; Q96.9 Turner's syndrome, unspecified; Z79.4 Long term (current) use of insulin; Z88.2 Allergy status to sulfonamides; Z82.49 Family history of ischemic heart disease and other diseases of the circulatory system; Z88.8 Allergy status to other drugs, medicaments and biological substances

== ENCOUNTER 2019-11-08 10:00 | Inpatient (IN) | payer MEDICARE ==
[2019-11-08] VITALS (7 sets, daily range): BP systolic 92–124; BP diastolic 44–73
[~2019-11-08] VITALS: Ht 144.7 cm; Wt 91.8 kg
[~2019-11-08 10:00] MED LIST changes: +BUMETANIDE2 MG PO; +COREG3.125 MG PO; +CYCLOBENZAPRIN7.5 M2 PO; +DALIRESP500 MC1 PO; +MIRTAZAPINE30 M2 PO; +REQUIP XL2 MG PO; -REQUIP XL4 MG PO; +ROPINIROLE HYDRO2 MG PO
--- NOTE | 2019-11-08 10:18 | NUR ---
EKG OBTAINED AT THIS TIME. DR MARTINEZ PROVIDED WITH COPY. TRANSFER SUCCESSFUL.
[2019-11-08 10:46] LABS: BASO % 0.4 % (0.0-1.0); EOS % 0.6 % (1.0-4.0); HEMATOCRIT 30.1 % (37.0-47.0); LYMPH # 0.6 10*3/uL (1.3-4.4); LYMPH % 13.5 % (27.0-41.0); MEAN CELL VOLUME 93.2 fl (81.0-99.0); MEAN CORPUSCULAR HGB 28.2 pg (27.0-31.0); MEAN CORPUSCULAR HGB CONC 30.2 g/dl (33.0-37.0); MEAN PLATELET VOLUME 10.7 fl (9.6-12.3); MONO # 0.4 10*3/uL (0.1-1.0); MONO % 7.8 % (3.0-9.0); NEUT # 3.7 10*3/uL (2.3-7.9); NEUT % 77.3 % (47.0-73.0); PLATELET COUNT AUTOMATED 171 10*3/uL (130-400); RED BLOOD COUNT 3.23 10*6/uL (4.10-5.10); RED CELL DISTRI WIDTH 16.5 % (0-14.5); WHITE BLOOD COUNT 4.8 10*3/uL (4.8-10.8)
[2019-11-08 10:56] LABS: ACT PARTIAL THROMBO TIME 29.8 SECONDS (20.0-32.1)
[2019-11-08 11:01] LABS: ALBUMIN 3.2 gm/dl (3.1-4.5); ALKALINE PHOSPHATASE 114 U/L (45-117); BUN 18 mg/dl (7-24); CHLORIDE 107 mmol/L (98-107); CREATININE 0.65 mg/dL (0.55-1.02); LIPASE 72 U/L (73-393); POTASSIUM 3.7 mmol/L (3.5-5.1); SGOT/AST 15 IU/L (3-35); SGPT/ALT 27 U/L (12-78); SODIUM 140 mmol/L (136-145); TOTAL PROTEIN 6.8 gm/dL (6.4-8.2)
[2019-11-08 11:03] LABS: TROPONIN I < 0.015 ng/ml (<0.045)
--- NOTE | 2019-11-08 13:38 | NUR ---
A 59, admitted to , under the services of RASHMI White MD with a diagnosis of COPD EXACERBATION, ACUTE HEART FAILURE. Chief complaint is SHORTNESS OF BREATH. Patient arrived via stretcher from ER. Monitor applied. Initial assessment completed. Vital signs taken and recorded. RASHMI WHITE MD notified of admission to the unit. Orders received. See assessment for past medical history, medications and allergies. Patient and/or family oriented to unit. [address] visitation policy reviewed. Clothing/patient valuable form completed. CHADD CUELLAR
[2019-11-08] MEDS ORDERED: VITAMIN D31250 MCG PO (13:54)
[2019-11-08] MEDS ORDERED: TORSEMIDE100 MG PO (13:57)
[2019-11-08] MEDS ORDERED: SPIRIVA RESPIMAT4 GM INH (13:58)
[2019-11-08] MEDS ORDERED: Ventolin 02.5 MG/3 M INH (14:00)
--- NOTE | 2019-11-08 14:02 | NUR ---
MEDICATIONS VERIFIED WITH PHARMACIST AT [facility].
--- NOTE | 2019-11-08 15:10 | NUR ---
PT REQUESTED AND WAS MEDICATED WITH NORCO FOR C/O GENERALIZED PAIN. CALL LIGHT IN REACH. WILL MONITOR
--- NOTE | 2019-11-08 16:05 | NUR ---
MEDICATION EFFECTIVE PER PT, CALL LIGHT IN REACH. WILL MONITOR
--- NOTE | 2019-11-08 20:20 | NUR ---
PATIENT IS AAOX3 RESTING IN BED WITH MOIST RESPERS ON 3L O2 VIA NC. ASSESSMENT IS COMPLETE WITH NO C/O VOICED. BED IS LOW, LOCKED, CALL LIGHT IS WITHIN REACH. WILL CONTINUE TO MONITOR, SEE SHIFT ASSESSMENT.
[2019-11-09] VITALS: BP 100/52
--- NOTE | 2019-11-09 | NUR ---
PATIENT SLEEPING WITH EASY, REGULAR, MOIST RESPERS. CALL LIGHT IS WITHIN REACH.
--- NOTE | 2019-11-09 03:34 | NUR ---
PATIENT SLEEPING WITH EASY, MOIST, REGULAR RESPERS. CALL LIGHT IS WITHIN REACH.
--- NOTE | 2019-11-09 03:40 | NUR ---
CHART CHECK COMPLETEO.
--- NOTE | 2019-11-09 05:43 | NUR ---
BEDSIDE GLUCOSE 109.
[2019-11-09 06:16] LABS: BASO % 0.2 % (0.0-1.0); HEMATOCRIT 31.1 % (37.0-47.0); LYMPH # 0.4 10*3/uL (1.3-4.4); LYMPH % 9.2 % (27.0-41.0); MEAN CELL VOLUME 92.8 fl (81.0-99.0); MEAN CORPUSCULAR HGB 27.8 pg (27.0-31.0); MEAN CORPUSCULAR HGB CONC 29.9 g/dl (33.0-37.0); MEAN PLATELET VOLUME 10.6 fl (9.6-12.3); MONO # 0.1 10*3/uL (0.1-1.0); MONO % 2.6 % (3.0-9.0); NEUT # 3.7 10*3/uL (2.3-7.9); NEUT % 87.3 % (47.0-73.0); PLATELET COUNT AUTOMATED 166 10*3/uL (130-400); RED BLOOD COUNT 3.35 10*6/uL (4.10-5.10); RED CELL DISTRI WIDTH 16.1 % (0-14.5); WHITE BLOOD COUNT 4.3 10*3/uL (4.8-10.8)
[2019-11-09 06:47] LABS: BUN 18 mg/dl (7-24); CHLORIDE 103 mmol/L (98-107); POTASSIUM 3.8 mmol/L (3.5-5.1); SODIUM 140 mmol/L (136-145)
[2019-11-09 06:51] LABS: INTERNATIONAL NORM RATIO 1.9 (2.0-3.5)
--- NOTE | 2019-11-09 08:28 | NUR ---
PT RESTING IN BED. NO DISTRESS NOTED. WILL MONITOR
--- NOTE | 2019-11-09 08:45 | NUR ---
PHYSICAL THERAPY Screen and PT eval received will follow thank you Leisa Zuñiga PT
--- NOTE | 2019-11-09 09:00 | NUR ---
Laundry Helper in to talk to patient. Patient states lives at home with her sister. There are basement steps in the home. Physician: Dr. Oksana Gusman Pharmacy: [facility] health services: has had [facility] previously Patient's level of ADLs: MINIMAL ASSIST Patient has working utilities: yes DME: cane, walker, O2 @ 2L nc, portable tanks, nebulizer, O2 supplier [facility] Follow-up physician's appointment after d/c: she prefers to make her own follow up appt after discharge Does patient want to access PORTAL?: no Discharge plan discussed with patient. She lives at home with her sister. She is independent in her ADLs and ambulates with either a cane or a walker. Discussed home health care services and she denies any home needs at this time. When medically stable she will be discharged to home. Her sister will provide transportation on discharge. LUCINDA GLASS
--- NOTE | 2019-11-09 10:40 | NUR ---
PHYSICAL THERAPY Physical Therapy evaluation completed on 4E with full evaluation to follow. Low complexity PT evaluation per chart review and evaluation, 13537. Recommend physical therapy per plan of care and Home Health upon discharge. Thank you for this referral. Brianna Borges,PT,DPT
--- NOTE | 2019-11-09 11:22 | NUR ---
SPOKE WITH DR NICHOLE REGARDING BP 102/42 HOLDING ZESTRIL AND COREG PER DR NICHOLE
[2019-11-09 12:00] VITALS: BP 117/70
--- NOTE | 2019-11-09 13:14 | NUR ---
PT REQUESTED AND GIVEN NORCO FOR C/O GEN PAIN PT RATES PAIN 5.10 WILL MONITOR
--- NOTE | 2019-11-09 14:15 | NUR ---
[facility]
[2019-11-09 16:00] VITALS: BP 100/41
--- NOTE | 2019-11-09 19:45 | NUR ---
IN TO ASSESS PATIENT. O2 3L NC, PATIENT STATES SHE IS SHORT OF BREATH AT ALL TIMES. LUNGS RHONCHI/RALES T/O AND PATIENT HAS A MOIST NONPRODUCTIVE COUGH. NONPITTING EDEMA NOTED TO BLE, 3+ PITTING PEDAL EDEMA. CARDENAS PATENT TO LARGE AMOUNTS OF ANGUS URINE. PT ON BUMEX. WILL CONTINUE TO MONITOR.
[2019-11-09 20:00] VITALS: BP 105/52
--- NOTE | 2019-11-09 22:51 | NUR ---
NORCO ADMINISTERED FOR PT C/O CHEST DISCOMFORT FROM COUGHING RATED AN 8/10. WILL CONTINUE TO MONITOR.
--- NOTE | 2019-11-09 22:59 | NUR ---
24 HOUR CHART CHECK COMPLETE.
[2019-11-10] VITALS: BP 97/54
--- NOTE | 2019-11-10 00:03 | NUR ---
PT STATES THE NORCO WAS EFFECTIVE IN RELIEVING HER PAIN.
[2019-11-10 06:20] LABS: BUN 25 mg/dl (7-24); CHLORIDE 102 mmol/L (98-107); CREATININE 0.57 mg/dL (0.55-1.02); POTASSIUM 3.5 mmol/L (3.5-5.1); SODIUM 141 mmol/L (136-145)
[2019-11-10 08:00] VITALS: BP 122/63
--- NOTE | 2019-11-10 08:30 | NUR ---
Blade Sharpener in to see patient. She is sitting on the edge of her bed without distress noted. Discussed home health care services and she denies any home needs at this time. She would like a front wheeled walker for home. Will discuss with Dr. Gusman. When medically stable he will be discharged to home.
--- NOTE | 2019-11-10 08:35 | NUR ---
Received prescription for front wheeled walker from Dr. Gusman. Will fax to [facility].
--- NOTE | 2019-11-10 08:42 | NUR ---
PT REQUESTED AND GIVEN NORCO FOR GEN PAIN PT RATES 12/06 WILL MONITOR
--- NOTE | 2019-11-10 08:48 | NUR ---
PT REQUESTD AND GIVEN NORCO FOR C/O GEN PAIN. PT RATES PAIN 6/10 WILL MONITOR
--- NOTE | 2019-11-10 08:53 | NUR ---
Faxed front wheeled walker prescription to [facility]. Awaiting response.
--- NOTE | 2019-11-10 09:30 | NUR ---
NORCO HELPED PER PT WILL MONITOR
--- NOTE | 2019-11-10 11:20 | NUR ---
PHYSICAL THERAPY Patient seen this am 1;1 for therapy visit and was supine in bed upon therapist arrival. Patient identified by name / and presented with continuous O2-3L via NC. Patient resting SpO2 95%, HR 98 bpm before transfering supine to sit EOB with CGA x 1. Patient completed sit to stand transfer, SBA and ambulated with use of wh walker, SBA, 40'x 1, demonstrating very slow, cautious gait pattern, decreased stride. Patient needed brief standing rest break < 15 seconds with v/c for purse lip breathing technique secondary to mild SOB / fatigue. Patient returned to bedside chair and and recorded SpO2 93%, HR 107 bpm. Patient remained in chair with call light, tray table and telephone as Nurse arrived for [email or web address]. Will continue per POC as tolerated, total treatment time 14 minutes. Idris Moon, VOCATIONAL AUTO BODY INSTRUCTOR
[2019-11-10 12:00] VITALS: BP 96/62
--- NOTE | 2019-11-10 14:24 | NUR ---
24 HR chart check completed.
--- NOTE | 2019-11-10 14:43 | NUR ---
Received call from Patricia Grullon at [facility]. They do not take patient's insurance. Faxed front wheeled walker prescription to [facility]. Awaiting response.
--- NOTE | 2019-11-10 15:15 | NUR ---
TOOK OVER THE CARE OF HAILEE AT THIS TIME. ENTERED PT'S ROOM TO ASSESS PT. PT IS CURRENTLY SLEEPING WITH NO SIGNS OF DISTRESS. WILL ASSESS PT WHEN I CHECK HER BLOOD SUGAR. WILL CONTINUE TO ROUND ON PATIENT UNTIL THAT TIME.
[2019-11-10 16:00] VITALS: BP 103/55
--- NOTE | 2019-11-10 16:29 | NUR ---
TOOK PT'S BLOOD SUGAR AND IT WAS 47. I TOOK PT'S BLOOD SUGAR AGAIN AND IT WAS 52. PER PT, "WHEN THIS HAPPENS I JUST EAT SOME PEANUT BUTTER AND DRINK A LITTLE MILK". GAVE PT A CONTAINER OF MILK AND PEANUT BUTTER. WILL RECHECK PT'S BLOOD SUGAR IN A HALF HOUR.
--- NOTE | 2019-11-10 17:35 | NUR ---
WENT TO RECHECK PT'S BLOOD SUGAR AT THIS TIME. PT'S DINNER HAD JUST COME UP AND HER SUGAR WAS 72. WILL CONTINUE TO MONITOR.
[2019-11-10 20:00] VITALS: BP 113/61
--- NOTE | 2019-11-10 22:25 | NUR ---
PATIENT MEDICATED WITH NORCO PER PRN ORDER AND PATIENT REQUEST FOR C/O GENERALIZED DISCOMFORT. SEE EMAR. REINFORCED USE OF CALL LIGHT.
--- NOTE | 2019-11-10 23:14 | NUR ---
24 HR chart check completed.
--- NOTE | 2019-11-10 23:15 | NUR ---
PATIENT RESTING QUIETLY. NO FURTHER C/O VOICED.
[2019-11-11 06:13] LABS: BASO % 0.2 % (0.0-1.0); HEMATOCRIT 32.2 % (37.0-47.0); LYMPH % 17.9 % (27.0-41.0); MEAN CELL VOLUME 90.4 fl (81.0-99.0); MEAN CORPUSCULAR HGB 27.5 pg (27.0-31.0); MEAN CORPUSCULAR HGB CONC 30.4 g/dl (33.0-37.0); MEAN PLATELET VOLUME 10.3 fl (9.6-12.3); MONO # 0.4 10*3/uL (0.1-1.0); MONO % 7.3 % (3.0-9.0); NEUT # 4.1 10*3/uL (2.3-7.9); NEUT % 73.9 % (47.0-73.0); PLATELET COUNT AUTOMATED 172 10*3/uL (130-400); RED BLOOD COUNT 3.56 10*6/uL (4.10-5.10); RED CELL DISTRI WIDTH 16.1 % (0-14.5); WHITE BLOOD COUNT 5.5 10*3/uL (4.8-10.8)
--- NOTE | 2019-11-11 06:15 | NUR ---
PATIENT'S BLOOD SUGAR 59. PATIENT REFUSES MEDICATION TO BRING BLOOD SUGAR UP. PATIENT REQUESTED AND WAS GIVEN SALTINES AND PEANUT BUTTER, WITH A GRAPE JUICE.
[2019-11-11 06:25] LABS: INTERNATIONAL NORM RATIO 1.4 (2.0-3.5)
[2019-11-11 06:41] LABS: BUN 28 mg/dl (7-24); CHLORIDE 103 mmol/L (98-107); POTASSIUM 3.3 mmol/L (3.5-5.1); SODIUM 143 mmol/L (136-145)
--- NOTE | 2019-11-11 07:00 | NUR ---
DR. NICHOLE IN TO SEE PATIENT AND WAS UPDATED ON BLOOD SUGAR .
[2019-11-11 08:00] VITALS: BP 114/68
--- NOTE | 2019-11-11 10:01 | NUR ---
Nutritional Support Services Note: Pt delcined diet copy at this time. States she eats what she wants. BS have been running low while here. Insulin as ordered. Encouraged her to eat healthy meals, discussed proper portion sizes. Encouraged her to call me if she wanted a diet copy or had any questions. Ht.4'9 Wt.216# IBW 85-95#. Will follow if needed. Kyung Nowak Rdn Ld
[2019-11-11 12:00] VITALS: BP 100/74
--- NOTE | 2019-11-11 15:27 | NUR ---
PHYSICAL THERAPY CO-SIGN I approve of the Physical Therapy notes written above. Leisa Zuñiga PT
[2019-11-11 16:00] VITALS: BP 97/50
--- NOTE | 2019-11-11 16:39 | NUR ---
PT MEDICATED WITH PRN NORCO FOR C/O BILATERAL LEG PAIN. PT RATES PAIN 01/05. WILL MONITOR.
--- NOTE | 2019-11-11 17:20 | NUR ---
PRN NORCO EFFECTIVE PER PT.
[2019-11-11 20:00] VITALS: BP 103/58
--- NOTE | 2019-11-11 23:48 | NUR ---
24 HR chart check completed.
[2019-11-12] VITALS: BP 100/60
--- NOTE | 2019-11-12 00:18 | NUR ---
PATIENT MEDICATED WITH NORCO PER PRN ORDER FOR C/O PAIN. SEE EMAR. REINFORCED USE OF CALL LIGHT.
--- NOTE | 2019-11-12 01:00 | NUR ---
PATIENT SLEEPING. MEDICATION GIVEN EARLIER EFFECTIVE FOR PAIN.
[2019-11-12 06:32] LABS: BASO % 0.3 % (0.0-1.0); EOS % 0.2 % (1.0-4.0); HEMATOCRIT 33.8 % (37.0-47.0); LYMPH # 1.3 10*3/uL (1.3-4.4); LYMPH % 20.2 % (27.0-41.0); MEAN CELL VOLUME 91.8 fl (81.0-99.0); MEAN CORPUSCULAR HGB 27.7 pg (27.0-31.0); MEAN CORPUSCULAR HGB CONC 30.2 g/dl (33.0-37.0); MEAN PLATELET VOLUME 10.6 fl (9.6-12.3); MONO # 0.6 10*3/uL (0.1-1.0); NEUT # 4.4 10*3/uL (2.3-7.9); PLATELET COUNT AUTOMATED 185 10*3/uL (130-400); RED BLOOD COUNT 3.68 10*6/uL (4.10-5.10); RED CELL DISTRI WIDTH 16.5 % (0-14.5); WHITE BLOOD COUNT 6.4 10*3/uL (4.8-10.8)
[2019-11-12 07:07] LABS: BUN 30 mg/dl (7-24); CHLORIDE 108 mmol/L (98-107); CREATININE 0.61 mg/dL (0.55-1.02); POTASSIUM 3.6 mmol/L (3.5-5.1); SODIUM 142 mmol/L (136-145)
--- NOTE | 2019-11-12 07:42 | NUR ---
PATIENTS BLOOD SUGAR 50 ON GLUCOSE CHECK. PATIENT REFUSING MEDS TO BRING BLOOD SUGAR UP. PATIENT REQUESTED AND WAS GIVEN 2 GRAPE JUICES.
--- NOTE | 2019-11-12 07:59 | NUR ---
Faxed wheeled walker, bsc, and shower chair prescriptions to [facility].
[2019-11-12 08:00] VITALS: BP 131/44
--- NOTE | 2019-11-12 08:00 | NUR ---
BSG 74 AT THIS TIME. GLIMEPERIDE HELD DUE TO LOW BS.
--- NOTE | 2019-11-12 10:10 | NUR ---
JOSÉ ANTONIO HELD PER PATIENT REQUEST.
[2019-11-12 12:00] VITALS: BP 135/52
--- NOTE | 2019-11-12 15:30 | NUR ---
PT RESTING IN BED. VOICES NO CONCERNS AT THIS TIME. RESPS EASY AND NON LABORED. NO S/S OF DISTRESS NOTED. VSS. WHITE BOARD UPDATED. CALL LIGHT WITHIN REACH. 3L OXYGEN VIA NASAL CANNULA INTACT
[2019-11-12 16:00] VITALS: BP 109/61
--- NOTE | 2019-11-12 17:00 | NUR ---
PT C/O 11/05 CHRONIC ACHING BILAT LEG PAIN. MEDICATED PER ORDER. WILL MONITOR FOR RELIEF. VOICES NO OTHER CONCERNS AT THIS TIME. RESPS EASY AND NON LABORED. OXYGEN INTACT. ASSISTED PT TO CHAIR TO EAT DINNER. CALL LIGHT WITHIN REACH.
--- NOTE | 2019-11-12 17:00 | NUR ---
Hep Lock discontinued. Site asymptomatic. Pressure applied. Sterile dressing applied. NANETTE FRAZIER IV started right forearm with #24 protective cath after 1 attempts. Site prepped with Chloroprep. Sterile dressing applied. Patient tolerated procedure well. NANETTE FRAZIER
--- NOTE | 2019-11-12 17:44 | NUR ---
Shift chart check completed.
--- NOTE | 2019-11-12 17:58 | NUR ---
NORCO EFFECTIVE PER PT
[2019-11-12 20:00] VITALS: BP 115/66
--- NOTE | 2019-11-12 21:38 | NUR ---
PATIENT MEDICATED WITH NORCO PER PRN ORDER FOR C/O GENERALIZED PAIN. RATED PAIN A 6/10 WITH 10 BEING THE WORST. SEE EMAR. REINFORCED USE OF CALL LIGHT.
--- NOTE | 2019-11-12 22:30 | NUR ---
PATIENT RESTING QUIETLY. MEDICATION EFFECTIVE.
[2019-11-13] VITALS: BP 99/43
--- NOTE | 2019-11-13 06:30 | NUR ---
PATIENT BLOOD SUGAR 66. PATIENT REFUSES MEDICATION TO RAISE BLOOD SUGAR. PATIENT REQUESTED AND WAS GIVEN CRANBERRY JUICE AND APPLESAUCE. REINFORCED USE OF CALL LIGHT.
--- NOTE | 2019-11-13 07:19 | NUR ---
RECHECK ON PATIETN BLOOD SUGAR WAS 135
--- NOTE | 2019-11-13 09:54 | NUR ---
IV LEAKING IN LEFT FOREARM. NEW IV PLACED ON SECOND ATTEMPT. #24 LEFT WRIST, GOOD BLOOD RETURN, PT TOLERATED FAIR
[2019-11-13 09:58] VITALS: BP 100/50
--- NOTE | 2019-11-13 09:59 | NUR ---
PT REFUSE MANUAL BLOOD PRESSURE ON TOP OF ARM, INSISTS FOR BLOOD PRESSURE TO BE TAKEN ON LOWER ARM.
[2019-11-13 12:00] VITALS: BP 108/59
--- NOTE | 2019-11-13 12:44 | NUR ---
PT STATES BACK PAIN 02/05, NORCO GIVEN. WILL MONITOR FOR EFFECTIVENESS
--- NOTE | 2019-11-13 13:35 | NUR ---
NORCO EFFECTIVE FOR PAIN
--- NOTE | 2019-11-13 14:04 | NUR ---
CARDENAS CATH D/C, CATH INTACT, PT TOLERATED WELL
[2019-11-13 16:00] VITALS: BP 96/48
--- NOTE | 2019-11-13 18:59 | NUR ---
PT COMPLAIN OF BACK PAIN 02/05,NORCO GIVEN
--- NOTE | 2019-11-13 19:59 | NUR ---
PT STATES THAT NORCO WAS EFFECTIVE FOR PAIN RELIEF. NO FURTHER C/O VOICED.
[2019-11-13 20:00] VITALS: BP 109/56
--- NOTE | 2019-11-13 20:32 | NUR ---
ASSUMED CARE FOR THIS PT AT THIS TIME. PT SITTING UP IN BED EATING HS SNACK. PT CONTINUES TO HAVE HAWKINS AND SHAREPOINT NET DEVELOPER COUGH. RHONCHI NOTED IN ALL LEFT KENNY. BS HYPO X4. CALL LIGHT IN REACH.
[2019-11-14] VITALS: BP 98/48
--- NOTE | 2019-11-14 02:51 | NUR ---
MEDICATED W/NORCO FOR C/O LUMBAR PAIN 04/07.
--- NOTE | 2019-11-14 03:30 | NUR ---
PT RESTING QUIETLY IN BED. NO S/S OF DISTRESS NOTED.
--- NOTE | 2019-11-14 06:19 | NUR ---
PT GIVEN GRAPE JUICE FOR BS OF 74. PT ENCOURAGED TO EAT BREAKFAST SOON KITCHEN OPENS. PT AGREEABLE.
[2019-11-14 06:52] LABS: INTERNATIONAL NORM RATIO 1.7 (2.0-3.5)
[2019-11-14 08:00] VITALS: BP 113/54
[2019-11-14] MEDS ORDERED: PREDNISONE5 MG PO (08:29)
[2019-11-14] MEDS ORDERED: CEFUROXIME AXE250 MG PO (08:29)
--- NOTE | 2019-11-14 08:56 | NUR ---
PHYSICAL THERAPY Patient was sitting up on EOB this am following breakfast and presented with continuous O2-3L via NC. Patient reports that she is going home this morning and declined all therapy, stating she wanted to rest prior to leaving. No therapy services provided this date. Idris Moon, CHANGE MANAGEMENT COORDINATOR
--- NOTE | 2019-11-14 09:53 | NUR ---
Discharge instructions reviewed with patient. Patient receptive and verbalizes understanding. Follow-up care understood. Written instructions given to patient. iv removed, tele removed. pt has no questions on discharge. discharge home via wheelchair. JITENDRA STOUT
--- NOTE | 2019-11-15 07:36 | NUR ---
PHYSICAL THERAPY CO-SIGN I approve of the Physical Therapy notes written above. Leisa Zuñiga PT
== END 2019-11-14 09:53 | disposition home or self-care (01) | DRG 190 ==
LOC: ED 10:00 → 4E 11:46 → EDHOLD 11:46 → 4E 12:17
PROVIDERS: Emergency Medicine; ADMIT Internal Medicine
DX: J44.0 Chronic obstructive pulmonary disease with (acute) lower respiratory infection (principal); I50.33 Acute on chronic diastolic (congestive) heart failure; D68.51 Activated protein C resistance; Z68.41 Body mass index [BMI] 40.0-44.9, adult; J20.9 Acute bronchitis, unspecified; J44.1 Chronic obstructive pulmonary disease with (acute) exacerbation; I11.0 Hypertensive heart disease with heart failure; F41.1 Generalized anxiety disorder; F51.01 Primary insomnia; E87.6 Hypokalemia; R62.7 Adult failure to thrive; G25.81 Restless legs syndrome; Q96.9 Turner's syndrome, unspecified; Z88.5 Allergy status to narcotic agent; Z88.2 Allergy status to sulfonamides; Z82.49 Family history of ischemic heart disease and other diseases of the circulatory system; Z83.3 Family history of diabetes mellitus; E11.649 Type 2 diabetes mellitus with hypoglycemia without coma

== ENCOUNTER 2019-12-08 23:56 | Inpatient (IN) | payer MEDICARE ==
[~2019-12-08] VITALS: Ht 144.8 cm; Wt 90.0 kg
[~2019-12-08 23:56] MED LIST changes: +SPIRIVA RESPIMAT4 GM INH; +TORSEMIDE100 MG PO; +VITAMIN D31250 MCG PO; +Ventolin 02.5 MG/3 M INH
[2019-12-09] VITALS (7 sets, daily range): BP systolic 90–110; BP diastolic 40–72
[2019-12-09 00:55] LABS: BASO % 0.4 % (0.0-1.0); EOS % 0.2 % (1.0-4.0); HEMATOCRIT 31.5 % (37.0-47.0); LYMPH # 0.5 10*3/uL (1.3-4.4); LYMPH % 8.5 % (27.0-41.0); MEAN CELL VOLUME 89.7 fl (81.0-99.0); MEAN CORPUSCULAR HGB 27.9 pg (27.0-31.0); MEAN CORPUSCULAR HGB CONC 31.1 g/dl (33.0-37.0); MEAN PLATELET VOLUME 9.5 fl (9.6-12.3); MONO # 0.4 10*3/uL (0.1-1.0); MONO % 6.2 % (3.0-9.0); NEUT # 4.7 10*3/uL (2.3-7.9); NEUT % 82.9 % (47.0-73.0); PLATELET COUNT AUTOMATED 141 10*3/uL (130-400); RED BLOOD COUNT 3.51 10*6/uL (4.10-5.10); RED CELL DISTRI WIDTH 17.9 % (0-14.5); WHITE BLOOD COUNT 5.7 10*3/uL (4.8-10.8)
[2019-12-09 01:11] LABS: ALBUMIN 2.9 gm/dl (3.1-4.5); ALKALINE PHOSPHATASE 96 U/L (45-117); BUN 29 mg/dl (7-24); CHLORIDE 98 mmol/L (98-107); CREATININE 0.85 mg/dL (0.55-1.02); POTASSIUM 3.2 mmol/L (3.5-5.1); SGOT/AST 26 IU/L (3-35); SGPT/ALT 32 U/L (12-78); SODIUM 134 mmol/L (136-145); TOTAL PROTEIN 6.9 gm/dL (6.4-8.2)
--- NOTE | 2019-12-09 01:24 | NUR ---
PT GIVEN 4OZ OJ, PEANUT BUTTER AND PIPPA CRACKERS FOR FINGERSTICK 37. MADE AWARE.
--- NOTE | 2019-12-09 01:53 | NUR ---
REPEAT FINGERSTICK 70. PT GIVEN GRAPE JUICE BY REQUEST. PT REMAINS ASYMPTOMATIC, STATES HER BGL WAS 40S THIS AM AND ATE PEANUT BUTTER. STATES SHE HAD NO SYMPTOMS THIS MORNING EITHER. WILL CONTINUE TO MONITOR.
--- NOTE | 2019-12-09 02:51 | NUR ---
PT'S BGL RECHECKED AT 105.
--- NOTE | 2019-12-09 03:00 | NUR ---
PER GRAZYNA SAVAGE-BEATRIZ, CONSULT FOR WAS CALLED IN BY . STATED THAT HE WILL SEE PATIENT.
--- NOTE | 2019-12-09 03:00 | NUR ---
A 59, admitted to 4E, under the services of RASHMI White MD with a diagnosis of CHF,HYPOGLYCEMIA,NSTEMI. Chief complaint is SOB. Patient arrived via bed from ER. Monitor applied. Initial assessment completed. Vital signs taken and recorded. RASHMI WHITE MD notified of admission to the unit. Orders received. See assessment for past medical history, medications and allergies. Patient oriented to unit. Clothing/patient valuable form completed. MISTY FRENCH
[2019-12-09 03:48] LABS: BILIRUBIN NEGATIVE (NEGATIVE); BLOOD NEGATIVE (NEGATIVE); CLARITY CLEAR (CLEAR); COLOR YELLOW (YELLOW); GLUCOSE 1+ (NEGATIVE); KETONE NEGATIVE (NEGATIVE); LEUKO ESTERASE NEGATIVE (NEGATIVE); NITRITE NEGATIVE (NEGATIVE); UROBILINOGEN 0.2 E.U./dl (0.2-1.0)
[2019-12-09] MEDS ORDERED: BUMETANIDE2 MG PO (03:56)
[2019-12-09 04:15] LABS: BACTERIA TRACE; WBC 16-20 wbc/hpf (0-5); YEAST 1+
--- NOTE | 2019-12-09 04:45 | NUR ---
AND TY AWARE OF ELEVATED TROP. SCOT WILL SEE THIS MORNING
--- NOTE | 2019-12-09 05:23 | NUR ---
PATIENT FINGERSTICK BGM X2 WAS 65 AND 67. PATIENT IS AAOX3. GIVEN GRAPE X2 JUICE PIPPA CRACKERS WITH PEANUT BUTTER. WILL RECHECK
--- NOTE | 2019-12-09 05:58 | NUR ---
ATTEMPT TO CALL , STATED SHE WOULD CALL BACK
--- NOTE | 2019-12-09 06:36 | NUR ---
CALLED BACK. ORDERSIN PLACE PER WISHES. HOME MEDS TO BE CONTINUE EXCEPT COUMADIN
--- NOTE | 2019-12-09 07:23 | NUR ---
PATIENT MEDICATED WITH NORCO FOR C/O / BACK PAIN AND R KNEE PAIN CHRONIC. WILL MONITOR
--- NOTE | 2019-12-09 07:47 | NUR ---
AND MADE AWARE OF TROPONIN 1.490. PER PT IS OK TO HAVE BREAKFAST AND THEN BE MADE NPO FOR HEART CATH TODAY AT [facility].
--- NOTE | 2019-12-09 08:12 | NUR ---
PER PT, NORCO HELPED BUT KNEE IS STILL PAINFUL. DENIES FURTHER MEDICATION NEEDS TO HELP AT THIS TIME. CALL LIGHT IN REACH.
--- NOTE | 2019-12-09 09:51 | NUR ---
BSG 42, REPEATED AND WAS 41. NOTIFIED. ORDERED TO FOLLOW SLIDING SCALE ORDERS. SEE MAR. ATE BREAKFAST CONSISTING OF [place]DEAN TOAST.
--- NOTE | 2019-12-09 10:18 | NUR ---
TRANSFER TO [place] CANCELLED TODAY DUE TO INR 4.0 AND VIT K GIVEN TO BRING DOWN PER ORDERS. STATES HE WILL DO HEART CATH ON THURSDAY. INFORMED.
--- NOTE | 2019-12-09 11:03 | NUR ---
Spoke to Lauren at [facility] regarding authorization for transfer to [facility] ( ) for left heart cath (procedure code 44357) today under Dr. Mcclain ( ). Auth # [id number]. Called to notify Lanny at [facility] and she states the patient is no longer transferring today.
--- NOTE | 2019-12-09 12:03 | NUR ---
NORCO GIVEN FOR C/O RT KNEE PAIN. CALL LIGHT IN REACH. WILL MONITOR.
--- NOTE | 2019-12-09 12:56 | NUR ---
PER PT, NORCO WAS EFFECTIVE. LAYING IN BED WITH FEET ELEVATED AND SLIGHT BEND TO LEGS. NO FURTHER COMPLAINTS. CALL LIGHT IN REACH.
--- NOTE | 2019-12-09 13:37 | NUR ---
ORDERED TO D/C INSULIN COVERAGE FOR LOW BSG CHECKS TODAY BY . SEE MAR.
--- NOTE | 2019-12-09 16:26 | NUR ---
NORCO GIVEN FOR PERSISTENT RT KNEE PAIN. STATES THERE MUST BE SOMETHING BROKEN. INFORMED HER THE XRAY DONE TODAY DID NOT SHOW ANY BROKEN BONES. SHE IS IN DISBELIEF. NO FURTHER NEEDS AT THIS TIME. CALL LIGHT IN REACH.
--- NOTE | 2019-12-09 16:51 | NUR ---
NOTIFIED OF BSG 55. ORDERED TO GIVEN D50, INCREASE D5W TO 100ML/HR, AND ORDER PTT, INR RECHECK. ALSO NOTIFIED OF BP 93/48, SAID OK.
--- NOTE | 2019-12-09 16:52 | NUR ---
50% DEXTROSE GIVEN FOR BSG OF 55 PER EMAR AND .
--- NOTE | 2019-12-09 17:16 | NUR ---
PER PT, NORCO WAS EFFECTIVE.
[2019-12-09 18:11] LABS: INTERNATIONAL NORM RATIO 1.7 (2.0-3.5)
--- NOTE | 2019-12-09 22:45 | NUR ---
PATIENT MEDICATED WITH NORCO FOR C/O R KNEE PAIN 01/05. WILL MONITOR
[2019-12-10] VITALS: BP 102/58
[2019-12-10 06:18] LABS: BASO % 0.2 % (0.0-1.0); EOS % 0.9 % (1.0-4.0); HEMATOCRIT 31.5 % (37.0-47.0); LYMPH # 0.6 10*3/uL (1.3-4.4); LYMPH % 13.7 % (27.0-41.0); MEAN CELL VOLUME 89.7 fl (81.0-99.0); MEAN CORPUSCULAR HGB 27.4 pg (27.0-31.0); MEAN CORPUSCULAR HGB CONC 30.5 g/dl (33.0-37.0); MEAN PLATELET VOLUME 10.3 fl (9.6-12.3); MONO # 0.3 10*3/uL (0.1-1.0); MONO % 6.4 % (3.0-9.0); NEUT # 3.6 10*3/uL (2.3-7.9); NEUT % 77.5 % (47.0-73.0); PLATELET COUNT AUTOMATED 147 10*3/uL (130-400); RED BLOOD COUNT 3.51 10*6/uL (4.10-5.10); RED CELL DISTRI WIDTH 17.8 % (0-14.5); WHITE BLOOD COUNT 4.7 10*3/uL (4.8-10.8)
[2019-12-10 06:47] LABS: ALBUMIN 2.5 gm/dl (3.1-4.5); ALKALINE PHOSPHATASE 86 U/L (45-117); CHLORIDE 97 mmol/L (98-107); CREATININE 0.59 mg/dL (0.55-1.02); POTASSIUM 2.8 mmol/L (3.5-5.1); SGOT/AST 28 IU/L (3-35); SGPT/ALT 29 U/L (12-78); SODIUM 136 mmol/L (136-145); TOTAL PROTEIN 6.4 gm/dL (6.4-8.2)
[2019-12-10 06:59] LABS: ACT PARTIAL THROMBO TIME 25.9 SECONDS (20.0-32.1); INTERNATIONAL NORM RATIO 1.1 (2.0-3.5)
[2019-12-10 07:08] LABS: BUN 16 mg/dl (7-24)
[2019-12-10 08:00] VITALS: BP 95/56
--- NOTE | 2019-12-10 08:48 | NUR ---
PATIENT C/O RIGHT KNEE, RIGHT HIP AND LOWER BACK PAIN. RATE 9/10 ON PAIN SCALE. MEDICATED WITH NORCO PER PRN ORDER. WILL CONTINUE TO MONITOR.
--- NOTE | 2019-12-10 09:30 | NUR ---
PATIENT RESTING QUIETLY. NO FURTHER C/O PAIN. NORCO EFFECTIVE.
[2019-12-10 12:00] VITALS: BP 98/57
--- NOTE | 2019-12-10 12:45 | NUR ---
#16 CARDENAS INSERTED. PATIENT TOLERATED WELL. 500CC CLEAR STRAW URINE OBTAINED UPON INSERTION.
[2019-12-10 16:00] VITALS: BP 99/47
--- NOTE | 2019-12-10 18:48 | NUR ---
PT MEDICATED WITH PRN NORCO FOR C/O RIGHT HIP AND BACK PAIN. PT RATES PAIN 03/08. WILL MONITOR.
--- NOTE | 2019-12-10 19:48 | NUR ---
[place] EFFECTIVE
[2019-12-10 20:00] VITALS: BP 100/66
[2019-12-10 21:01] LABS: BUN 14 mg/dl (7-24); CHLORIDE 102 mmol/L (98-107); CREATININE 0.77 mg/dL (0.55-1.02); SODIUM 136 mmol/L (136-145)
[2019-12-10 21:04] LABS: POTASSIUM 4.3 mmol/L (3.5-5.1)
--- NOTE | 2019-12-10 21:24 | NUR ---
CALLED AND INFORMED OF BMP RESULTS. STATED FOR LAB WORK ORDERS FOR MORNING AND THURSDAY.
--- NOTE | 2019-12-10 21:25 | NUR ---
APTT=35.3. PER HEPARIN PROTOCOL, INCREASED BY 2U/KG/HR TO 14.3U/KG/HR RUNNING AT 13.9CC/HR. RECHECK TO BE DONE 6HRS FROM NOW. DOSE CHANGE COMPLETED WITH SECOND RN ON FLOOR.
[2019-12-11] VITALS: BP 102/60
--- NOTE | 2019-12-11 03:13 | NUR ---
PATIENT MEDICATED WITH NORCO FOR C/O R KNEE PAIN 02/05. WILL MONITOR
[2019-12-11 03:25] LABS: BASO % 0.5 % (0.0-1.0); HEMATOCRIT 32.3 % (37.0-47.0); LYMPH # 0.6 10*3/uL (1.3-4.4); LYMPH % 15.1 % (27.0-41.0); MEAN CELL VOLUME 91.8 fl (81.0-99.0); MEAN CORPUSCULAR HGB 27.6 pg (27.0-31.0); MEAN PLATELET VOLUME 9.5 fl (9.6-12.3); MONO # 0.3 10*3/uL (0.1-1.0); MONO % 6.5 % (3.0-9.0); NEUT # 3.1 10*3/uL (2.3-7.9); NEUT % 74.7 % (47.0-73.0); PLATELET COUNT AUTOMATED 133 10*3/uL (130-400); RED BLOOD COUNT 3.52 10*6/uL (4.10-5.10); RED CELL DISTRI WIDTH 18.1 % (0-14.5); WHITE BLOOD COUNT 4.2 10*3/uL (4.8-10.8)
[2019-12-11 03:37] LABS: BUN 14 mg/dl (7-24); CHLORIDE 103 mmol/L (98-107); CREATININE 0.68 mg/dL (0.55-1.02); POTASSIUM 3.8 mmol/L (3.5-5.1); SODIUM 139 mmol/L (136-145)
--- NOTE | 2019-12-11 04:00 | NUR ---
APTT=34.8. PER HEPARIN PROTOCOL, GTT INCREASE BY 2U/KG/HR AT 16.3U/KG/HR RUNNING AT 15.8CC/HR. DOSE INCREASE VERIFIED BY 2ND RN ON FLOOR.
[2019-12-11 08:00] VITALS: BP 119/53
--- NOTE | 2019-12-11 08:23 | NUR ---
PT MEDICATED WITH PRN NROCO FOR C/O BACK AND RIGHT HIP PAIN. PT RATES PAIN 8.5/10. WILL MONITOR.
--- NOTE | 2019-12-11 09:00 | NUR ---
PRN NORCO EFFECTIVE PER PT
[2019-12-11 12:00] VITALS: BP 118/71
[2019-12-11 16:00] VITALS: BP 96/50
--- NOTE | 2019-12-11 16:04 | NUR ---
PT MEDIACTED WITH PRN AMPARO FOR C/O BACK AND HIP PAIN. PT RATES PAIN 03/08. WILL MONITOR.
[2019-12-11 20:00] VITALS: BP 98/49
--- NOTE | 2019-12-11 20:45 | NUR ---
RESTING IN BED WITH NO ACUTE DISTRESS NOTED. RESPIRATIONS EASY. LUNGS DIMINISHED WITH WHEEZES. PULSE OX 94% 3L. NON-PROD COUGH. CARDENAS PATENT. BLE EDEMA. HEPARIN INFUSING PER ORDER. CALL LIGHT WITHIN REACH. NO VOICED COMPLAINTS. BED ALARM MAINTAINED FOR SAFETY
--- NOTE | 2019-12-11 23:26 | NUR ---
24 HR chart check completed.
--- NOTE | 2019-12-11 23:56 | NUR ---
REQUESTED AND RECEIVED NORCO PER PRN ORDER FOR COMPLAINTS OF BACK PAIN RATING A 9. CALL LIGHT WITHIN REACH. WILL MONITOR FOR EFFECTIVENESS
[2019-12-12] VITALS: BP 107/59
--- NOTE | 2019-12-12 00:30 | NUR ---
MEDS APPEAR EFFECTIVE. SLEEPING. RESPIRATIONS EASY. VSS. CALL LIGHT WITHIN REACH
--- NOTE | 2019-12-12 05:44 | NUR ---
REQUESTED AND RECEIVED NORCO PER PRN ORDER FOR COMPLAINTS OF BACK PAIN RATING A 9. CALL LIGHT WITHIN REACH. WILL MONITOR
[2019-12-12 05:52] LABS: HEMATOCRIT 30.8 % (37.0-47.0); MEAN CELL VOLUME 91.9 fl (81.0-99.0); MEAN CORPUSCULAR HGB 27.8 pg (27.0-31.0); MEAN CORPUSCULAR HGB CONC 30.2 g/dl (33.0-37.0); MEAN PLATELET VOLUME 10.3 fl (9.6-12.3); PLATELET COUNT AUTOMATED 142 10*3/uL (130-400); RED BLOOD COUNT 3.35 10*6/uL (4.10-5.10); RED CELL DISTRI WIDTH 18.2 % (0-14.5); WHITE BLOOD COUNT 4.3 10*3/uL (4.8-10.8)
[2019-12-12 05:55] LABS: BUN 11 mg/dl (7-24); CHLORIDE 97 mmol/L (98-107); CREATININE 0.61 mg/dL (0.55-1.02); POTASSIUM 3.5 mmol/L (3.5-5.1); SODIUM 136 mmol/L (136-145)
--- NOTE | 2019-12-12 06:30 | NUR ---
EARLIER MEDS APPEAR EFFECTIVE. SLEEPING
--- NOTE | 2019-12-12 06:40 | NUR ---
PTT 78.0. HEPARIN DRIP ADJUSTED PER PROTOCOL
[2019-12-12 07:03] LABS: BASOPHILS 1 % (0-1); PLATELET SUFFICIENCY NORMAL (NORMAL); TOTAL CELLS COUNTED 100 #CELLS
[2019-12-12 08:00] VITALS: BP 98/58
--- NOTE | 2019-12-12 09:30 | NUR ---
Boiler Repair Supervisor in to talk to patient. Patient states lives at home with her sister. There are basement steps in the home. Physician: Dr. Oksana Gusman Pharmacy: [facility] health services: has had [facility] Patient's level of ADLs: MINIMAL ASSIST Patient has working utilities: yes DME: cane, walker, front wheeled walker, O2 @ 2L nc, portable tanks, nebulizer, O2 supplier [facility] Follow-up physician's appointment after d/c: she prefers to make her own follow up appt after discharge Does patient want to access PORTAL?: no Discharge plan discussed with patient. She lives at home with her sister. She is independent in her ADLs and ambulates with either a cane or a walker. Discussed home health care services and she denies any skilled home needs at this time. She would like someone to help clean her home and make her meals once in a while. She states she is waiting to hear back about her wheelchair and shower chair. When medically stable she will be discharged to home. Her sister will provide transportation on discharge. LUCINDA GLASS
[2019-12-12 12:00] VITALS: BP 100/52
--- NOTE | 2019-12-12 12:33 | NUR ---
MEDICATED WITH PRN NORCO PER ORDER AND REQUEST.
--- NOTE | 2019-12-12 15:30 | NUR ---
PTT WITHIN NORMAL RANGE NO CHANGE PER POLICY. NEXT PTT 12/12 0530.
[2019-12-12 16:00] VITALS: BP 101/61
--- NOTE | 2019-12-12 19:52 | NUR ---
24 HR chart check completed.
[2019-12-12 20:00] VITALS: BP 104/44
--- NOTE | 2019-12-12 20:00 | NUR ---
PATIENT REMAINS ON LEFT SIDE, REFUSING TO TURN. RESPIRATIONS EASY. LUNGS DIMINISHED WITH COARSE EXP WHEEZES. PULSE OX 94% 3L. NON-PROD COUGH. CARDENAS PATENT. GEN EDEMA. HEPARING INFUING PER ORDER. CALL LIGHT WITHIN REACH. NO VOICED COMPLAINTS
--- NOTE | 2019-12-12 21:23 | NUR ---
REQUESTED AND RECEIVED NORCO PER PRN ORDER FOR COMPLAINTS OF LOWER BACK AND RIGHT HIP PAIN RATING AN 8. CALL LIGHT WITHIN REACH. WILL MONITOR FOR EFFECTIVENESS
--- NOTE | 2019-12-12 22:10 | NUR ---
EARLIER MEDS APPEAR EFFECTIVE, SLEEPING. RESPIRATIONS EASY. CALL LIGHT WITHIN REACH
--- NOTE | 2019-12-12 23:20 | NUR ---
DR VERMA CONTACTED AND INFORMED PATIENT WAS IN BIGEMINY, CURRENTLY SINUS RHYTHM.
[2019-12-13] VITALS: BP 103/56
--- NOTE | 2019-12-13 | NUR ---
SLEEPING. NO DISTRESS NOTED. RESPIRATIONS EASY. VSS. HEPARIN MAINTAINED. CALL LIGHT WITHIN REACH
--- NOTE | 2019-12-13 02:49 | NUR ---
REQUESTED AND RECEIVED NORCO PER PRN ORDER FOR COMPLAINTS OF LOWER BACK AND RIGHT RIB PAIN RATING A 9. CALL LIGHT WITHIN REACH. WILL MONITOR
--- NOTE | 2019-12-13 03:30 | NUR ---
MEDS EFFECTIVE. SLEEPING. RESPIRATIONS EASY.
[2019-12-13 05:57] LABS: MEAN CELL VOLUME 90.9 fl (81.0-99.0); MEAN CORPUSCULAR HGB 28.2 pg (27.0-31.0); MEAN PLATELET VOLUME 9.8 fl (9.6-12.3); PLATELET COUNT AUTOMATED 148 10*3/uL (130-400); RED BLOOD COUNT 3.41 10*6/uL (4.10-5.10); RED CELL DISTRI WIDTH 18.5 % (0-14.5); WHITE BLOOD COUNT 4.3 10*3/uL (4.8-10.8)
--- NOTE | 2019-12-13 06:00 | NUR ---
RESTING WITH EYES CLOSED. RESPIRATIONS EASY. O2 IN USE. HEPARIN MAINTAINED PER ORDER. CALL LIGHT WITHIN REACH. NO VOICED COMPLAINTS
[2019-12-13 06:54] LABS: PLATELET SUFFICIENCY NORMAL (NORMAL); TOTAL CELLS COUNTED 100 #CELLS
[2019-12-13 08:00] VITALS: BP 90/59
--- NOTE | 2019-12-13 09:20 | NUR ---
DR VERMA ASKED THIS NURSE TO AMBULATE PT AND SEE IF PULSE OX DROPS. PT AMBULATED FROM BED TO DOORWAY AND BACK. PULSE OX RANGED FROM 90-94%, PULSE OX INCREASED WHILE AMBUALTING TO 92-94% AND HR 110'S TO 140'S. PT TOLERATED WELL. DR VERMA NOTIFIED.
--- NOTE | 2019-12-13 09:21 | NUR ---
Manager Operations Research in to see patient. She is requesting home health care services. When provided with a list of agencies she chose [facility]. When medically stable she will be discharged to home with [facility].
--- NOTE | 2019-12-13 09:25 | NUR ---
PT REQUESTED [facility] [place] [facility]. DR VERMA NOTIFIED AND LUCINDA FROM CASE MANAGEMENT IN TO SEE PT
--- NOTE | 2019-12-13 09:30 | NUR ---
Patient asking about a wheelchair and shower chair that was sent to Naheed from Dr. Gusman' office. Spoke to Sarina at [facility] regarding above. Sarina states they are waiting for more paperwork from the office. Patient notified.
--- NOTE | 2019-12-13 09:42 | NUR ---
Faxed home health care order to [facility]. Discussed discharge with patient. She states her sister can be here between 10:30 am and 11 am. Nurse notified.
--- NOTE | 2019-12-13 10:32 | NUR ---
[facility] is not in contract with patient's insurance. Discussed with patient. When provided with a list of agencies she chose [facility]. Faxed referral to [facility].
--- NOTE | 2019-12-13 10:45 | NUR ---
CARDENAS REMOVED PER ORDERS. PT TOLERATED WELL.
--- NOTE | 2019-12-13 11:30 | NUR ---
Discharge instructions reviewed with patient/family. Patient receptive and verbalizes understanding. Follow-up care arranged. Written instructions given to patient/family. CHADD CUELLAR
== END 2019-12-13 11:30 | disposition home health service (06) | DRG 280 ==
LOC: ED 23:56 → EDHOLD 12-09 02:29 → 4E 12-09 02:29
PROVIDERS: Emergency Medicine; ADMIT Internal Medicine
DX: I11.0 Hypertensive heart disease with heart failure (principal); J96.20 Acute and chronic respiratory failure, unspecified whether with hypoxia or hypercapnia; I21.4 Non-ST elevation (NSTEMI) myocardial infarction; Z68.42 Body mass index [BMI] 45.0-49.9, adult; D68.2 Hereditary deficiency of other clotting factors; I27.20 Pulmonary hypertension, unspecified; I50.43 Acute on chronic combined systolic (congestive) and diastolic (congestive) heart failure; I25.10 Atherosclerotic heart disease of native coronary artery without angina pectoris; J43.9 Emphysema, unspecified; E66.01 Morbid (severe) obesity due to excess calories; M54.5 Low back pain; M89.49 Other hypertrophic osteoarthropathy, multiple sites; F41.1 Generalized anxiety disorder; G25.81 Restless legs syndrome; I50.812 Chronic right heart failure; D63.8 Anemia in other chronic diseases classified elsewhere; R62.7 Adult failure to thrive; E11.649 Type 2 diabetes mellitus with hypoglycemia without coma; F51.01 Primary insomnia; I89.0 Lymphedema, not elsewhere classified; E87.6 Hypokalemia; G89.29 Other chronic pain; Z96.649 Presence of unspecified artificial hip joint; Z79.899 Other long term (current) drug therapy; Q96.9 Turner's syndrome, unspecified; Z79.4 Long term (current) use of insulin; Z87.891 Personal history of nicotine dependence

== ENCOUNTER 2020-01-09 15:19 | Inpatient (IN) | payer MEDICARE ==
[2020-01-09] VITALS (9 sets, daily range): BP systolic 76–138; BP diastolic 48–117
[~2020-01-09] VITALS: Ht 145 cm; Wt 89.0 kg
[2020-01-09 16:03] LABS: BASO % 0.3 % (0.0-1.0); EOS % 0.4 % (1.0-4.0); HEMATOCRIT 33.4 % (37.0-47.0); LYMPH # 0.9 10*3/uL (1.3-4.4); LYMPH % 12.4 % (27.0-41.0); MEAN CELL VOLUME 89.3 fl (81.0-99.0); MEAN CORPUSCULAR HGB 27.8 pg (27.0-31.0); MEAN CORPUSCULAR HGB CONC 31.1 g/dl (33.0-37.0); MEAN PLATELET VOLUME 9.7 fl (9.6-12.3); MONO # 0.4 10*3/uL (0.1-1.0); MONO % 6.3 % (3.0-9.0); NEUT # 5.5 10*3/uL (2.3-7.9); NEUT % 79.3 % (47.0-73.0); PLATELET COUNT AUTOMATED 206 10*3/uL (130-400); RED BLOOD COUNT 3.74 10*6/uL (4.10-5.10); RED CELL DISTRI WIDTH 18.6 % (0-14.5); WHITE BLOOD COUNT 6.9 10*3/uL (4.8-10.8)
[2020-01-09 16:13] LABS: ACT PARTIAL THROMBO TIME 31.9 SECONDS (20.0-32.1); INTERNATIONAL NORM RATIO 2.4 (2.0-3.5)
[2020-01-09 16:21] LABS: ALBUMIN 3.3 gm/dl (3.1-4.5); ALKALINE PHOSPHATASE 142 U/L (45-117); BUN 21 mg/dl (7-24); CHLORIDE 97 mmol/L (98-107); CREATININE 1.03 mg/dL (0.55-1.02); LIPASE 106 U/L (73-393); SGOT/AST 16 IU/L (3-35); SGPT/ALT 26 U/L (12-78); SODIUM 134 mmol/L (136-145); TOTAL PROTEIN 7.1 gm/dL (6.4-8.2); TROPONIN I 0.024 ng/ml (<0.045)
[2020-01-09 16:24] LABS: POTASSIUM 2.4 mmol/L (3.5-5.1)
[2020-01-09 23:12] LABS: BILIRUBIN NEGATIVE (NEGATIVE); BLOOD 3+ (NEGATIVE); CLARITY SL CLOUDY (CLEAR); COLOR YELLOW (YELLOW); GLUCOSE 2+ (NEGATIVE); KETONE NEGATIVE (NEGATIVE); LEUKO ESTERASE 2+ (NEGATIVE); NITRITE NEGATIVE (NEGATIVE); PH 6.5 (5.0-9.0); SPECIFIC GRAVITY 1.005 (1.005-1.030); UROBILINOGEN 0.2 E.U./dl (0.2-1.0)
[2020-01-09 23:21] LABS: BACTERIA 3+; RBC 41-50 rbc/hpf (0-2); WBC 41-50 wbc/hpf (0-5)
[2020-01-10] VITALS: BP 98/40
[2020-01-10 01:00] VITALS: BP 94/60
[2020-01-10 03:00] VITALS: BP 94/66
[2020-01-10 09:10] LABS: BUN 13 mg/dl (7-24); CHLORIDE 108 mmol/L (98-107); CREATININE 0.64 mg/dL (0.55-1.02); SODIUM 139 mmol/L (136-145)
[2020-01-10 09:25] LABS: POTASSIUM 3.6 mmol/L (3.5-5.1)
[2020-01-10 12:00] VITALS: BP 108/60
[2020-01-10 16:00] VITALS: BP 96/47
[2020-01-10 20:00] VITALS: BP 92/42
[2020-01-11] VITALS: BP 82/33
[2020-01-11 00:06] VITALS: BP 92/34
[2020-01-11 07:33] LABS: BUN 10 mg/dl (7-24); CHLORIDE 106 mmol/L (98-107); CREATININE 0.56 mg/dL (0.55-1.02); POTASSIUM 3.1 mmol/L (3.5-5.1); SODIUM 140 mmol/L (136-145)
[2020-01-11 08:00] VITALS: BP 102/58
[2020-01-11 11:18] LABS: INTERNATIONAL NORM RATIO 2.6 (2.0-3.5)
[2020-01-11 12:00] VITALS: BP 102/64
[2020-01-11 16:00] VITALS: BP 96/50
[2020-01-12] VITALS: BP 102/67
[2020-01-12 07:25] LABS: BASO % 0.9 % (0.0-1.0); EOS % 1.2 % (1.0-4.0); HEMATOCRIT 30.6 % (37.0-47.0); LYMPH # 0.6 10*3/uL (1.3-4.4); MEAN CELL VOLUME 91.3 fl (81.0-99.0); MEAN CORPUSCULAR HGB 27.5 pg (27.0-31.0); MEAN CORPUSCULAR HGB CONC 30.1 g/dl (33.0-37.0); MEAN PLATELET VOLUME 10.2 fl (9.6-12.3); MONO # 0.2 10*3/uL (0.1-1.0); MONO % 6.7 % (3.0-9.0); NEUT # 2.5 10*3/uL (2.3-7.9); PLATELET COUNT AUTOMATED 135 10*3/uL (130-400); RED BLOOD COUNT 3.35 10*6/uL (4.10-5.10); RED CELL DISTRI WIDTH 18.4 % (0-14.5); WHITE BLOOD COUNT 3.5 10*3/uL (4.8-10.8)
[2020-01-12 07:57] LABS: BUN 10 mg/dl (7-24); CHLORIDE 107 mmol/L (98-107); CREATININE 0.55 mg/dL (0.55-1.02); POTASSIUM 3.4 mmol/L (3.5-5.1); SODIUM 140 mmol/L (136-145)
[2020-01-12 07:59] LABS: INTERNATIONAL NORM RATIO 2.4 (2.0-3.5)
[2020-01-12 08:00] VITALS: BP 96/58
[2020-01-12 16:00] VITALS: BP 104/60
[2020-01-12 20:00] VITALS: BP 90/52
[2020-01-13] VITALS: BP 91/50
[2020-01-13 08:00] VITALS: BP 104/54
[2020-01-13 12:00] VITALS: BP 110/62
[2020-01-13 16:00] VITALS: BP 92/63
[2020-01-13 20:00] VITALS: BP 120/53
[2020-01-14] VITALS: BP 134/67
[2020-01-14 13:00] VITALS: BP 129/75
[2020-01-14 16:00] VITALS: BP 98/60
[2020-01-14 20:00] VITALS: BP 108/66
[2020-01-15] VITALS: BP 113/64
[2020-01-15 06:22] LABS: BASO % 0.3 % (0.0-1.0); EOS # 0.1 10*3/uL (0.0-0.4); HEMATOCRIT 30.6 % (37.0-47.0); LYMPH # 0.4 10*3/uL (1.3-4.4); LYMPH % 11.6 % (27.0-41.0); MEAN CELL VOLUME 91.1 fl (81.0-99.0); MEAN CORPUSCULAR HGB 27.4 pg (27.0-31.0); MEAN CORPUSCULAR HGB CONC 30.1 g/dl (33.0-37.0); MEAN PLATELET VOLUME 10.7 fl (9.6-12.3); MONO # 0.2 10*3/uL (0.1-1.0); NEUT # 2.3 10*3/uL (2.3-7.9); NEUT % 76.5 % (47.0-73.0); PLATELET COUNT AUTOMATED 143 10*3/uL (130-400); RED BLOOD COUNT 3.36 10*6/uL (4.10-5.10); RED CELL DISTRI WIDTH 18.3 % (0-14.5)
[2020-01-15 06:30] LABS: INTERNATIONAL NORM RATIO 2.4 (2.0-3.5)
[2020-01-15 06:52] LABS: BUN 11 mg/dl (7-24); CHLORIDE 102 mmol/L (98-107); CREATININE 0.52 mg/dL (0.55-1.02); POTASSIUM 3.3 mmol/L (3.5-5.1); SODIUM 139 mmol/L (136-145)
[2020-01-15 08:00] VITALS: BP 110/62
[2020-01-15 12:00] VITALS: BP 100/64
[2020-01-15 16:00] VITALS: BP 104/49
[2020-01-15 20:00] VITALS: BP 100/55
[2020-01-16] VITALS: BP 94/48
[2020-01-16] MEDS ORDERED: K-TAB20 MEQ PO (08:30)
[2020-01-16] MEDS ORDERED: BUMETANIDE1 MG PO (08:32)
[2020-01-16 12:00] VITALS: BP 99/58
[2020-01-16 16:00] VITALS: BP 111/45
== END 2020-01-16 17:12 | disposition home or self-care (01) | DRG 683 ==
LOC: ED 15:19 → EDHOLD 18:47 → 5E 18:47
PROVIDERS: Emergency Medicine; ADMIT Internal Medicine
PROC: 02HV33Z Insertion of Infusion Device into Superior Vena Cava, Percutaneous Approach (ICD-10-PCS; principal; 2020-01-16)
PROC: B5181ZA Fluoroscopy of Superior Vena Cava using Low Osmolar Contrast, Guidance (ICD-10-PCS; principal; 2020-01-16)
DX: N17.0 Acute kidney failure with tubular necrosis (principal); J44.1 Chronic obstructive pulmonary disease with (acute) exacerbation; J96.10 Chronic respiratory failure, unspecified whether with hypoxia or hypercapnia; N39.0 Urinary tract infection, site not specified; I50.32 Chronic diastolic (congestive) heart failure; Z16.12 Extended spectrum beta lactamase (ESBL) resistance; I95.2 Hypotension due to drugs; I25.10 Atherosclerotic heart disease of native coronary artery without angina pectoris; I11.0 Hypertensive heart disease with heart failure; M54.5 Low back pain; G89.29 Other chronic pain; F41.1 Generalized anxiety disorder; E11.9 Type 2 diabetes mellitus without complications; R91.8 Other nonspecific abnormal finding of lung field; E86.0 Dehydration; E87.6 Hypokalemia; B96.20 Unspecified Escherichia coli [E. coli] as the cause of diseases classified elsewhere; G25.81 Restless legs syndrome; T50.2X5A Adverse effect of carbonic-anhydrase inhibitors, benzothiadiazides and other diuretics, initial encounter; Y92.89 Other specified places as the place of occurrence of the external cause; Z79.01 Long term (current) use of anticoagulants; Z88.2 Allergy status to sulfonamides; Z88.8 Allergy status to other drugs, medicaments and biological substances; Q96.9 Turner's syndrome, unspecified

== ENCOUNTER 2020-01-19 14:49 | Emergency (ER) | payer MEDICARE ==
[~2020-01-19 14:49] MED LIST changes: +BUMETANIDE1 MG PO; +K-TAB20 MEQ PO
[2020-01-19 15:36] LABS: BASO % 0.5 % (0.0-1.0); EOS # 0.1 10*3/uL (0.0-0.4); EOS % 2.3 % (1.0-4.0); HEMATOCRIT 30.1 % (37.0-47.0); LYMPH # 0.8 10*3/uL (1.3-4.4); LYMPH % 18.8 % (27.0-41.0); MEAN CELL VOLUME 88.3 fl (81.0-99.0); MEAN CORPUSCULAR HGB 27.3 pg (27.0-31.0); MEAN CORPUSCULAR HGB CONC 30.9 g/dl (33.0-37.0); MEAN PLATELET VOLUME 9.9 fl (9.6-12.3); MONO # 0.5 10*3/uL (0.1-1.0); MONO % 10.4 % (3.0-9.0); NEUT # 2.9 10*3/uL (2.3-7.9); NEUT % 66.8 % (47.0-73.0); PLATELET COUNT AUTOMATED 159 10*3/uL (130-400); RED BLOOD COUNT 3.41 10*6/uL (4.10-5.10); RED CELL DISTRI WIDTH 18.2 % (0-14.5); WHITE BLOOD COUNT 4.3 10*3/uL (4.8-10.8)
[2020-01-19 15:49] LABS: ACT PARTIAL THROMBO TIME 29.1 SECONDS (20.0-32.1); INTERNATIONAL NORM RATIO 1.7 (2.0-3.5)
[2020-01-19 15:52] LABS: ALBUMIN 3.3 gm/dl (3.1-4.5); ALKALINE PHOSPHATASE 144 U/L (45-117); BUN 11 mg/dl (7-24); CHLORIDE 103 mmol/L (98-107); CREATININE 0.53 mg/dL (0.55-1.02); POTASSIUM 3.1 mmol/L (3.5-5.1); SGOT/AST 18 IU/L (3-35); SGPT/ALT 24 U/L (12-78); SODIUM 138 mmol/L (136-145)
[2020-01-19 16:25] LABS: BILIRUBIN 1+ (NEGATIVE); BLOOD NEGATIVE (NEGATIVE); CLARITY CLEAR (CLEAR); COLOR YELLOW (YELLOW); EPITHELIAL CELLS TNTC; GLUCOSE TRACE (NEGATIVE); KETONE NEGATIVE (NEGATIVE); LEUKO ESTERASE NEGATIVE (NEGATIVE); NITRITE NEGATIVE (NEGATIVE); SPECIFIC GRAVITY 1.025 (1.005-1.030); UROBILINOGEN 0.2 E.U./dl (0.2-1.0); WBC 0-2 wbc/hpf (0-5)
[2020-01-19 16:26] LABS: BACTERIA 1+; MUCOUS 3+
[2020-01-19] MEDS ORDERED: PREDNISONE20 M1 PO (16:58)
== END 2020-01-19 17:19 | disposition home or self-care (01) ==
LOC: ED 14:49
PROVIDERS: Emergency Medicine
DX: R06.02 Shortness of breath (principal); E87.6 Hypokalemia; R09.89 Other specified symptoms and signs involving the circulatory and respiratory systems; R79.1 Abnormal coagulation profile; J44.9 Chronic obstructive pulmonary disease, unspecified; E66.01 Morbid (severe) obesity due to excess calories; I50.9 Heart failure, unspecified; Z88.2 Allergy status to sulfonamides; Z88.8 Allergy status to other drugs, medicaments and biological substances; Z79.899 Other long term (current) drug therapy; Z79.01 Long term (current) use of anticoagulants; Z79.4 Long term (current) use of insulin

== ENCOUNTER 2020-03-28 18:50 | Inpatient (IN) | payer MEDICARE ==
[~2020-03-28] VITALS: Ht 142.2 cm; Wt 81.4 kg
[2020-03-28 18:50] VITALS: BP 106/56
[2020-03-28 19:39] LABS: BASO % 0.2 % (0.0-1.0); EOS # 0.1 10*3/uL (0.0-0.4); EOS % 1.1 % (1.0-4.0); HEMATOCRIT 32.4 % (37.0-47.0); LYMPH # 0.5 10*3/uL (1.3-4.4); LYMPH % 11.3 % (27.0-41.0); MEAN CELL VOLUME 86.9 fl (81.0-99.0); MEAN CORPUSCULAR HGB 24.9 pg (27.0-31.0); MEAN CORPUSCULAR HGB CONC 28.7 g/dl (33.0-37.0); MEAN PLATELET VOLUME 11.2 fl (9.6-12.3); MONO # 0.3 10*3/uL (0.1-1.0); MONO % 5.3 % (3.0-9.0); NEUT # 3.8 10*3/uL (2.3-7.9); NEUT % 81.7 % (47.0-73.0); PLATELET COUNT AUTOMATED 177 10*3/uL (130-400); RED BLOOD COUNT 3.73 10*6/uL (4.10-5.10); RED CELL DISTRI WIDTH 17.2 % (0-14.5); WHITE BLOOD COUNT 4.7 10*3/uL (4.8-10.8)
[2020-03-28 19:53] LABS: ACT PARTIAL THROMBO TIME 36.5 SECONDS (20.0-32.1); INTERNATIONAL NORM RATIO 2.6 (2.0-3.5)
[2020-03-28 19:57] LABS: ALBUMIN 3.5 gm/dl (3.1-4.5); ALKALINE PHOSPHATASE 102 U/L (45-117); BUN 8 mg/dl (7-24); CHLORIDE 108 mmol/L (98-107); CREATININE 0.53 mg/dL (0.55-1.02); SGOT/AST 11 IU/L (3-35); SGPT/ALT 18 U/L (12-78); SODIUM 138 mmol/L (136-145); TOTAL PROTEIN 7.3 gm/dL (6.4-8.2)
[2020-03-28 20:02] LABS: TROPONIN I < 0.015 ng/ml (<0.045)
[2020-03-28 20:06] VITALS: BP 110/66
[2020-03-28 21:08] VITALS: BP 100/61
[2020-03-28 21:44] VITALS: BP 107/64
[2020-03-28 22:08] VITALS: BP 98/60
[2020-03-28] MEDS ORDERED: MYRBETRIQ25 M1 PO (23:39)
[2020-03-28] MEDS ORDERED: FARXIGA5 M1 PO (23:49)
[2020-03-29] VITALS: BP 91/56
[2020-03-29] MEDS ORDERED: PREDNISONE5 MG PO (00:44)
[2020-03-29 11:05] LABS: INTERNATIONAL NORM RATIO 2.7 (2.0-3.5)
[2020-03-29 12:00] VITALS: BP 110/50
[2020-03-29 16:00] VITALS: BP 110/56
[2020-03-29 20:00] VITALS: BP 96/55
[2020-03-30] VITALS: BP 96/58
[2020-03-30 06:28] LABS: BASO % 0.2 % (0.0-1.0); EOS # 0.1 10*3/uL (0.0-0.4); EOS % 1.1 % (1.0-4.0); HEMATOCRIT 33.1 % (37.0-47.0); LYMPH # 0.8 10*3/uL (1.3-4.4); LYMPH % 16.9 % (27.0-41.0); MEAN CORPUSCULAR HGB 25.2 pg (27.0-31.0); MEAN CORPUSCULAR HGB CONC 29.3 g/dl (33.0-37.0); MEAN PLATELET VOLUME 10.9 fl (9.6-12.3); MONO # 0.4 10*3/uL (0.1-1.0); MONO % 7.7 % (3.0-9.0); NEUT # 3.4 10*3/uL (2.3-7.9); NEUT % 72.8 % (47.0-73.0); PLATELET COUNT AUTOMATED 197 10*3/uL (130-400); RED BLOOD COUNT 3.85 10*6/uL (4.10-5.10); RED CELL DISTRI WIDTH 17.4 % (0-14.5); WHITE BLOOD COUNT 4.7 10*3/uL (4.8-10.8)
[2020-03-30 06:54] LABS: BUN 12 mg/dl (7-24); CHLORIDE 101 mmol/L (98-107); CREATININE 0.71 mg/dL (0.55-1.02); POTASSIUM 3.3 mmol/L (3.5-5.1); SODIUM 138 mmol/L (136-145)
[2020-03-30 07:06] LABS: INTERNATIONAL NORM RATIO 2.7 (2.0-3.5)
[2020-03-30 07:38] VITALS: BP 103/54
[2020-03-30 08:00] VITALS: BP 103/54
[2020-03-30 12:00] VITALS: BP 104/54
[2020-03-30 16:37] VITALS: BP 93/45
[2020-03-30 20:00] VITALS: BP 101/51
[2020-03-31] VITALS: BP 110/56
[2020-03-31 08:00] VITALS: BP 114/74
[2020-03-31 12:00] VITALS: BP 100/41
[2020-03-31 16:00] VITALS: BP 95/45
[2020-03-31 20:00] VITALS: BP 109/56
[2020-04-01] VITALS: BP 102/59
[2020-04-01 12:00] VITALS: BP 104/63
[2020-04-01 16:00] VITALS: BP 115/80
[2020-04-01 20:00] VITALS: BP 130/76
[2020-04-02] VITALS: BP 111/57
[2020-04-02 06:25] LABS: BASO % 0.5 % (0.0-1.0); EOS # 0.1 10*3/uL (0.0-0.4); EOS % 0.9 % (1.0-4.0); HEMATOCRIT 34.3 % (37.0-47.0); LYMPH # 0.8 10*3/uL (1.3-4.4); LYMPH % 13.7 % (27.0-41.0); MEAN CELL VOLUME 84.3 fl (81.0-99.0); MEAN CORPUSCULAR HGB 24.3 pg (27.0-31.0); MEAN CORPUSCULAR HGB CONC 28.9 g/dl (33.0-37.0); MEAN PLATELET VOLUME 10.3 fl (9.6-12.3); MONO # 0.4 10*3/uL (0.1-1.0); MONO % 6.7 % (3.0-9.0); NEUT # 4.4 10*3/uL (2.3-7.9); NEUT % 77.5 % (47.0-73.0); PLATELET COUNT AUTOMATED 197 10*3/uL (130-400); RED BLOOD COUNT 4.07 10*6/uL (4.10-5.10); RED CELL DISTRI WIDTH 17.3 % (0-14.5); WHITE BLOOD COUNT 5.7 10*3/uL (4.8-10.8)
[2020-04-02 06:34] LABS: INTERNATIONAL NORM RATIO 2.5 (2.0-3.5)
[2020-04-02 06:37] LABS: BUN 15 mg/dl (7-24); CHLORIDE 100 mmol/L (98-107); CREATININE 0.71 mg/dL (0.55-1.02); SODIUM 135 mmol/L (136-145)
[2020-04-02 08:00] VITALS: BP 105/70
[2020-04-02] MEDS ORDERED: DOXYCYCLINE100 M3 PO (09:10)
[2020-04-02] MEDS ORDERED: TRAD5TAB1 PO (09:10)
[2020-04-02] MEDS ORDERED: BUMETANIDE2 MG PO (09:13)
[2020-04-02 12:00] VITALS: BP 108/72
== END 2020-04-02 12:00 | disposition home health service (06) | DRG 291 ==
LOC: ED 18:50 → EDHOLD 21:26 → 5E 21:26
PROVIDERS: Student in an Organized Health Care Education/Training Program; ADMIT Internal Medicine; ATTEND Internal Medicine
PROC: 0HBRXZZ Excision of Toe Nail, External Approach (ICD-10-PCS; principal; 2020-03-30)
DX: I11.0 Hypertensive heart disease with heart failure (principal); I50.31 Acute diastolic (congestive) heart failure; J80 Acute respiratory distress syndrome; D68.51 Activated protein C resistance; Z68.41 Body mass index [BMI] 40.0-44.9, adult; E87.6 Hypokalemia; R62.7 Adult failure to thrive; J44.9 Chronic obstructive pulmonary disease, unspecified; I27.81 Cor pulmonale (chronic); Z96.643 Presence of artificial hip joint, bilateral; F41.1 Generalized anxiety disorder; G25.81 Restless legs syndrome; E11.9 Type 2 diabetes mellitus without complications; B35.1 Tinea unguium; Z88.5 Allergy status to narcotic agent; Z88.8 Allergy status to other drugs, medicaments and biological substances; Z79.51 Long term (current) use of inhaled steroids; Z95.1 Presence of aortocoronary bypass graft; Z83.3 Family history of diabetes mellitus; Z79.4 Long term (current) use of insulin; Z91.19 Patient's noncompliance with other medical treatment and regimen; Z79.01 Long term (current) use of anticoagulants; I25.2 Old myocardial infarction; Z88.2 Allergy status to sulfonamides

== ENCOUNTER 2020-04-15 20:52 | Inpatient (IN) | payer MEDICARE ==
[~2020-04-15] VITALS: Ht 167.6 cm; Wt 85.4 kg
[~2020-04-15 20:52] MED LIST changes: +MYRBETRIQ25 M1 PO; +TRAD5TAB1 PO
[2020-04-15 20:57] VITALS: BP 97/53
[2020-04-15 21:19] LABS: BASO % 0.3 % (0.0-1.0); EOS % 0.1 % (1.0-4.0); HEMATOCRIT 31.5 % (37.0-47.0); LYMPH # 0.6 10*3/uL (1.3-4.4); MEAN CELL VOLUME 81.6 fl (81.0-99.0); MEAN CORPUSCULAR HGB 24.6 pg (27.0-31.0); MEAN CORPUSCULAR HGB CONC 30.2 g/dl (33.0-37.0); MEAN PLATELET VOLUME 10.1 fl (9.6-12.3); MONO # 0.3 10*3/uL (0.1-1.0); MONO % 3.7 % (3.0-9.0); NEUT # 5.9 10*3/uL (2.3-7.9); NEUT % 84.9 % (47.0-73.0); PLATELET COUNT AUTOMATED 166 10*3/uL (130-400); RED BLOOD COUNT 3.86 10*6/uL (4.10-5.10); RED CELL DISTRI WIDTH 17.2 % (0-14.5)
[2020-04-15 21:36] LABS: ALBUMIN 3.2 gm/dl (3.1-4.5); ALKALINE PHOSPHATASE 94 U/L (45-117); BUN 18 mg/dl (7-24); CHLORIDE 97 mmol/L (98-107); CREATININE 0.93 mg/dL (0.55-1.02); SGOT/AST 10 IU/L (3-35); SGPT/ALT 15 U/L (12-78); SODIUM 134 mmol/L (136-145); TOTAL PROTEIN 7.1 gm/dL (6.4-8.2)
[2020-04-15 21:39] LABS: TROPONIN I < 0.015 ng/ml (<0.045)
[2020-04-15 21:53] LABS: ACT PARTIAL THROMBO TIME 45.6 SECONDS (20.0-32.1)
[2020-04-15 21:55] LABS: INTERNATIONAL NORM RATIO 5.9 (2.0-3.5)
[2020-04-15 22:21] VITALS: BP 106/63
[2020-04-16] VITALS: BP 115/56
[2020-04-16 04:13] LABS: BILIRUBIN Negative (Negative); BLOOD Negative (Negative); CLARITY Cloudy (Clear); COLOR Yellow (Yellow); GLUCOSE Negative (Negative); KETONE Negative (Negative); LEUKO ESTERASE Negative (Negative); NITRITE Negative (Negative); PH 6.5 (4.5-8.0)
[2020-04-16 04:26] LABS: EPITHELIAL CELLS 16-20
[2020-04-16 06:22] VITALS: BP 104/51
[2020-04-16 08:30] VITALS: BP 115/56
[2020-04-16 12:00] VITALS: BP 118/60
[2020-04-16 16:00] VITALS: BP 106/40
[2020-04-16 20:00] VITALS: BP 95/56
[2020-04-17] VITALS: BP 95/52
[2020-04-17 06:25] LABS: MEAN CELL VOLUME 82.7 fl (81.0-99.0); MEAN CORPUSCULAR HGB 24.8 pg (27.0-31.0); PLATELET COUNT AUTOMATED 154 10*3/uL (130-400); RED BLOOD COUNT 3.75 10*6/uL (4.10-5.10); RED CELL DISTRI WIDTH 17.5 % (0-14.5)
[2020-04-17 06:34] LABS: INTERNATIONAL NORM RATIO 3.6 (2.0-3.5)
[2020-04-17 06:52] LABS: BUN 17 mg/dl (7-24); CHLORIDE 100 mmol/L (98-107); CREATININE 0.78 mg/dL (0.55-1.02); POTASSIUM 3.7 mmol/L (3.5-5.1); SODIUM 136 mmol/L (136-145)
[2020-04-17 07:26] LABS: PLATELET SUFFICIENCY NORMAL (NORMAL); TOTAL CELLS COUNTED 100 #CELLS
[2020-04-17 08:00] VITALS: BP 106/60
[2020-04-17 12:00] VITALS: BP 132/72
[2020-04-17 16:00] VITALS: BP 117/63
[2020-04-17 20:00] VITALS: BP 93/46
[2020-04-18] VITALS: BP 97/53
[2020-04-18 08:00] VITALS: BP 116/67
[2020-04-18 08:08] LABS: HEMATOCRIT 31.3 % (37.0-47.0); MEAN CELL VOLUME 82.2 fl (81.0-99.0); MEAN CORPUSCULAR HGB 24.7 pg (27.0-31.0); MEAN PLATELET VOLUME 10.8 fl (9.6-12.3); PLATELET COUNT AUTOMATED 152 10*3/uL (130-400); RED BLOOD COUNT 3.81 10*6/uL (4.10-5.10); RED CELL DISTRI WIDTH 17.6 % (0-14.5); WHITE BLOOD COUNT 8.5 10*3/uL (4.8-10.8)
[2020-04-18 08:18] LABS: INTERNATIONAL NORM RATIO 2.4 (2.0-3.5)
[2020-04-18 08:24] LABS: BUN 22 mg/dl (7-24); CHLORIDE 103 mmol/L (98-107); CREATININE 0.81 mg/dL (0.55-1.02); POTASSIUM 4.2 mmol/L (3.5-5.1); SODIUM 139 mmol/L (136-145)
[2020-04-18 08:32] LABS: TOTAL CELLS COUNTED 100 #CELLS
[2020-04-18 08:34] LABS: PLATELET SUFFICIENCY NORMAL (NORMAL)
[2020-04-18 12:00] VITALS: BP 103/76
[2020-04-18 16:00] VITALS: BP 112/62
[2020-04-18 20:00] VITALS: BP 104/54
[2020-04-19] VITALS: BP 112/64
[2020-04-19 08:00] VITALS: BP 117/67
[2020-04-19 12:00] VITALS: BP 93/56
[2020-04-19 16:00] VITALS: BP 102/59
[2020-04-19 20:00] VITALS: BP 85/46
[2020-04-20] VITALS: BP 93/46
[2020-04-20 08:00] VITALS: BP 106/62
[2020-04-20] MEDS ORDERED: CARVEDILOL6.25 MG PO (08:52)
[2020-04-20] MEDS ORDERED: PREDNISONE5 MG PO ×2 (08:53)
[2020-04-20] MEDS ORDERED: DOXYCYCLINE100 M3 PO ×2 (08:53)
[2020-04-20 12:00] VITALS: BP 117/64
[2020-04-20 16:00] VITALS: BP 106/58
[2020-04-20 20:00] VITALS: BP 103/51
[2020-04-20 23:16] VITALS: BP 113/62
[2020-04-21 08:00] VITALS: BP 130/73
[2020-04-21 12:00] VITALS: BP 111/64
[2020-04-21 16:00] VITALS: BP 116/67
== END 2020-04-21 17:12 | disposition home health service (06) | DRG 190 ==
LOC: ED 20:52 → EDHOLD 22:28 → 4E 22:28
PROVIDERS: Emergency Medicine; ADMIT Internal Medicine; ATTEND Internal Medicine
DX: J44.1 Chronic obstructive pulmonary disease with (acute) exacerbation (principal); J18.9 Pneumonia, unspecified organism; I50.32 Chronic diastolic (congestive) heart failure; D68.51 Activated protein C resistance; J96.11 Chronic respiratory failure with hypoxia; I48.21 Permanent atrial fibrillation; J45.51 Severe persistent asthma with (acute) exacerbation; E87.6 Hypokalemia; J44.0 Chronic obstructive pulmonary disease with (acute) lower respiratory infection; Z96.643 Presence of artificial hip joint, bilateral; G25.81 Restless legs syndrome; E66.9 Obesity, unspecified; F41.1 Generalized anxiety disorder; R62.7 Adult failure to thrive; T45.515A Adverse effect of anticoagulants, initial encounter; R00.2 Palpitations; T38.0X5A Adverse effect of glucocorticoids and synthetic analogues, initial encounter; K21.9 Gastro-esophageal reflux disease without esophagitis; Z96.651 Presence of right artificial knee joint; G89.29 Other chronic pain; E11.65 Type 2 diabetes mellitus with hyperglycemia; I11.0 Hypertensive heart disease with heart failure; Z20.828 Contact with and (suspected) exposure to other viral communicable diseases; M47.816 Spondylosis without myelopathy or radiculopathy, lumbar region; Z79.01 Long term (current) use of anticoagulants; Z91.19 Patient's noncompliance with other medical treatment and regimen; Q96.9 Turner's syndrome, unspecified; Z68.30 Body mass index [BMI] 30.0-30.9, adult; Z88.2 Allergy status to sulfonamides; Z88.8 Allergy status to other drugs, medicaments and biological substances; Z86.711 Personal history of pulmonary embolism; I25.2 Old myocardial infarction; Z87.01 Personal history of pneumonia (recurrent); Z86.718 Personal history of other venous thrombosis and embolism; Z82.49 Family history of ischemic heart disease and other diseases of the circulatory system; Z83.3 Family history of diabetes mellitus; Y92.89 Other specified places as the place of occurrence of the external cause

== ENCOUNTER 2020-04-27 13:51 | Emergency (ER) | payer MEDICARE ==
[~2020-04-27] VITALS: Ht 144.7 cm; Wt 80.7 kg
[~2020-04-27 13:51] MED LIST changes: +CARVEDILOL6.25 MG PO
[2020-04-27 14:50] LABS: HEMATOCRIT 35.4 % (37.0-47.0); MEAN CELL VOLUME 82.9 fl (81.0-99.0); MEAN CORPUSCULAR HGB 24.8 pg (27.0-31.0); MEAN CORPUSCULAR HGB CONC 29.9 g/dl (33.0-37.0); MEAN PLATELET VOLUME 10.8 fl (9.6-12.3); PLATELET COUNT AUTOMATED 152 10*3/uL (130-400); RED BLOOD COUNT 4.27 10*6/uL (4.10-5.10); WHITE BLOOD COUNT 7.2 10*3/uL (4.8-10.8)
[2020-04-27 14:51] LABS: BILIRUBIN Negative (Negative); BLOOD Negative (Negative); CLARITY Clear (Clear); COLOR Yellow (Yellow); GLUCOSE 1+ (Negative); KETONE Negative (Negative); LEUKO ESTERASE Negative (Negative); NITRITE Negative (Negative); PH 6.5 (4.5-8.0); SPECIFIC GRAVITY <= 1.005 (1.001-1.030); UROBILINOGEN 0.2 E.U./dl (0.0-1.0)
[2020-04-27 15:04] LABS: WBC 0-2 wbc/hpf (0-5)
[2020-04-27 15:07] LABS: ALBUMIN 3.4 gm/dl (3.1-4.5); ALKALINE PHOSPHATASE 73 U/L (45-117); BUN 24 mg/dl (7-24); CHLORIDE 99 mmol/L (98-107); CREATININE 0.88 mg/dL (0.55-1.02); POTASSIUM 3.6 mmol/L (3.5-5.1); SGOT/AST 14 IU/L (3-35); SGPT/ALT 22 U/L (12-78); SODIUM 133 mmol/L (136-145); TOTAL PROTEIN 7.2 gm/dL (6.4-8.2); TROPONIN I < 0.015 ng/ml (<0.045)
[2020-04-27 15:09] LABS: BASOPHILS 1 % (0-1); PLATELET SUFFICIENCY NORMAL (NORMAL); TOTAL CELLS COUNTED 100 #CELLS
[2020-04-27 15:10] LABS: BURR CELLS FEW
== END 2020-04-27 16:10 | disposition home or self-care (01) ==
LOC: ED 13:51
PROVIDERS: Emergency Medicine
DX: J44.9 Chronic obstructive pulmonary disease, unspecified (principal); R06.02 Shortness of breath; Z88.2 Allergy status to sulfonamides; Z88.8 Allergy status to other drugs, medicaments and biological substances; Z79.899 Other long term (current) drug therapy

== ENCOUNTER 2020-05-02 14:13 | Inpatient (IN) | payer MEDICARE, OTHER ==
[~2020-05-02] VITALS: Ht 144.7 cm; Wt 81.9 kg
[2020-05-02 14:39] VITALS: BP 90/43
[2020-05-02 15:10] VITALS: BP 116/67
[2020-05-02 15:37] LABS: BASO % 0.5 % (0.0-1.0); EOS # 0.1 10*3/uL (0.0-0.4); EOS % 1.4 % (1.0-4.0); HEMATOCRIT 30.2 % (37.0-47.0); LYMPH # 0.7 10*3/uL (1.3-4.4); LYMPH % 17.3 % (27.0-41.0); MEAN CELL VOLUME 81.6 fl (81.0-99.0); MEAN CORPUSCULAR HGB 24.9 pg (27.0-31.0); MEAN CORPUSCULAR HGB CONC 30.5 g/dl (33.0-37.0); MEAN PLATELET VOLUME 10.4 fl (9.6-12.3); MONO # 0.3 10*3/uL (0.1-1.0); MONO % 7.4 % (3.0-9.0); NEUT % 71.2 % (47.0-73.0); PLATELET COUNT AUTOMATED 134 10*3/uL (130-400); RED CELL DISTRI WIDTH 19.6 % (0-14.5); WHITE BLOOD COUNT 4.2 10*3/uL (4.8-10.8)
[2020-05-02 15:53] LABS: ALBUMIN 3.1 gm/dl (3.1-4.5); ALKALINE PHOSPHATASE 74 U/L (45-117); BUN 14 mg/dl (7-24); CHLORIDE 101 mmol/L (98-107); POTASSIUM 3.1 mmol/L (3.5-5.1); SGOT/AST 12 IU/L (3-35); SGPT/ALT 19 U/L (12-78); SODIUM 139 mmol/L (136-145); TOTAL PROTEIN 6.6 gm/dL (6.4-8.2)
[2020-05-02 17:05] VITALS: BP 94/71
--- NOTE | 2020-05-02 18:00 | NUR ---
PT DENIES WOUNDS. MULTIPLE BRUISES ON ARMS AND LEGS NOTED.
--- NOTE | 2020-05-02 18:26 | NUR ---
A 59, admitted to 5E, under the services of RASHMI White MD with a diagnosis of TACHYCARDIA,PNEUMONIA,HYPOKALEMIA. Chief complaint is COUGH. Patient arrived via stretcher from ER. Monitor applied. Initial assessment completed. Vital signs taken and recorded. RASHMI WHITE MD notified of admission to the unit. Orders received. See assessment for past medical history, medications and allergies. Patient and/or family oriented to unit. [address] visitation policy reviewed. Clothing/patient valuable form completed. NAYE HUMMEL
[2020-05-02 18:41] VITALS: BP 126/99
--- NOTE | 2020-05-02 19:31 | NUR ---
DR. CHOUDHURY AND DR. ELLISON AWARE OF CONSULTS.
[2020-05-02 20:00] VITALS: BP 110/42
[2020-05-02 20:31] LABS: INTERNATIONAL NORM RATIO 2.6 (2.0-3.5)
--- NOTE | 2020-05-02 21:00 | NUR ---
PT SEEN AND ASSESSED. PT STATES SHE HAS HAD MULTIPLE ADMISSIONS TO THE HOSPITAL WITH THIS DX. PT STATES HER COUGH IS NON-PROD. PT ASK FOR PRN PAIN MEDICATION FOR 7/10 GENERALIZED PAIN. WILL REASSESS.
[2020-05-03] VITALS: BP 93/59
[2020-05-03 06:33] LABS: MEAN CELL VOLUME 84.5 fl (81.0-99.0); MEAN CORPUSCULAR HGB 25.1 pg (27.0-31.0); MEAN CORPUSCULAR HGB CONC 29.7 g/dl (33.0-37.0); MEAN PLATELET VOLUME 10.5 fl (9.6-12.3); PLATELET COUNT AUTOMATED 94 10*3/uL (130-400); RED BLOOD COUNT 3.55 10*6/uL (4.10-5.10); RED CELL DISTRI WIDTH 19.7 % (0-14.5)
[2020-05-03 07:03] LABS: BUN 10 mg/dl (7-24); CHLORIDE 104 mmol/L (98-107); CREATININE 0.57 mg/dL (0.55-1.02); POTASSIUM 3.3 mmol/L (3.5-5.1); SODIUM 139 mmol/L (136-145)
[2020-05-03 07:35] LABS: TOTAL CELLS COUNTED 100 #CELLS
[2020-05-03 07:36] LABS: OVALOCYTES FEW; PLATELET SUFFICIENCY LOW (NORMAL)
[2020-05-03 08:00] VITALS: BP 103/48
--- NOTE | 2020-05-03 08:30 | NUR ---
Portfolio Director in to talk to patient. Patient states lives at home with her sister. There are basement steps in the home. Physician: Dr. Oksana Gusman Pharmacy: [facility] health services: currently has [facility] Patient's level of ADLs: MINIMAL ASSIST Patient has working utilities: yes DME: cane, walker, front wheeled walker, wheelchair, shower chair, O2 @ 3L nc, portable O2 tanks, nebulizer, O2 supplier [facility] Follow-up physician's appointment after d/c: she prefers to make her own follow up appt after discharge Does patient want to access PORTAL?: no Discharge plan discussed with patient. Dr. Gusman in room. She lives at home with her sister. She is independent in her ADLs and ambulates with either a cane or a walker or gets around in a wheelchair. Discussed short term SNF and she adamantly refuses. Dr. Gusman brought up palliative care. Discussed palliative care with patient and she is agreeable. Notified Dr. Gusman and new order received for palliative care on discharge with [facility]. skid worker notified. Discussed home health care services and she states she currently has [facility] and would like to resume their services upon discharge. When medically stable she will be discharged to home with the resumption of her [facility] services. She states her sister will provide transportation on discharge. LUCINDA GLASS
--- NOTE | 2020-05-03 09:16 | NUR ---
DRAWING IN MACHINE TENDER HELPER FAXED PALLIATIVE CARE ORDER TO [facility].
[2020-05-03 09:52] LABS: INTERNATIONAL NORM RATIO 2.2 (2.0-3.5)
[2020-05-03 12:00] VITALS: BP 85/44
[2020-05-03 12:59] VITALS: BP 100/50
--- NOTE | 2020-05-03 13:08 | NUR ---
DR. ELLISON HAS ROUNDED SEE NEW ORDERS.
[2020-05-03 16:00] VITALS: BP 98/48
[2020-05-03 20:00] VITALS: BP 92/58
--- NOTE | 2020-05-03 22:37 | NUR ---
AMPARO GIVEN PER ORDER FOR BACK PAIN RATED "8" SEE MAR.
--- NOTE | 2020-05-03 23:30 | NUR ---
NORCO EFFECTIVE FOR PAIN PER PT.
[2020-05-04] VITALS: BP 98/48
--- NOTE | 2020-05-04 02:14 | NUR ---
24 HR chart check completed.
--- NOTE | 2020-05-04 04:50 | NUR ---
AMPARO GIVEN PER ORDER FOR BACK PAIN RATED "7" SEE MAR.
--- NOTE | 2020-05-04 05:50 | NUR ---
NORCO EFFECTIVE FOR PAIN PER PT
[2020-05-04 06:09] LABS: BASO % 0.3 % (0.0-1.0); EOS # 0.1 10*3/uL (0.0-0.4); HEMATOCRIT 28.7 % (37.0-47.0); LYMPH # 0.3 10*3/uL (1.3-4.4); LYMPH % 10.5 % (27.0-41.0); MEAN CELL VOLUME 83.4 fl (81.0-99.0); MEAN PLATELET VOLUME 11.1 fl (9.6-12.3); MONO # 0.3 10*3/uL (0.1-1.0); MONO % 8.5 % (3.0-9.0); NEUT # 2.4 10*3/uL (2.3-7.9); NEUT % 76.7 % (47.0-73.0); PLATELET COUNT AUTOMATED 113 10*3/uL (130-400); RED BLOOD COUNT 3.44 10*6/uL (4.10-5.10); RED CELL DISTRI WIDTH 20.4 % (0-14.5); WHITE BLOOD COUNT 3.1 10*3/uL (4.8-10.8)
[2020-05-04 06:26] LABS: BUN 11 mg/dl (7-24); CHLORIDE 101 mmol/L (98-107); CREATININE 0.57 mg/dL (0.55-1.02); SODIUM 139 mmol/L (136-145)
--- NOTE | 2020-05-04 08:30 | NUR ---
CM in to see patient. Dr. Gusman in room. Discussed short term rehab and she is agreeable and wants to go to [facility]. b and b gang worker notified. Dr. Gusman would like Dr. Petersen to see patient on Thursday and possibly have a bronchoscopy. COVID ordered. Discussed the need for patient to work with physical therapy and she is agreeable and will do what she can. When medically stable and accepted she will be discharged to [facility].
--- NOTE | 2020-05-04 08:43 | NUR ---
CRAB CATCHER FAXED REFERRAL TO [facility].
--- NOTE | 2020-05-04 09:15 | NUR ---
PT RESTING IN BED. TOLERATED ROUTINE MED WITH NO PROBLEM. NO C/O AT THIS TIME. OXYGEN IN USE. RESP-EASY AND REGULAR. CALL LIGHT IN REACH. SEE SHIFT ASSESSMENT.
--- NOTE | 2020-05-04 10:29 | NUR ---
PHYSICAL THERAPY Physical Therapy evaluation completed on 5E with full evaluation to follow. Low complexity skilled PT evaluation per chart review and evaluation, [id number]. Recommend physical therapy per plan of care and SNF upon discharge. Thank you for this referral. Brianna Borges,PT,DPT
[2020-05-04 12:00] VITALS: BP 86/42
--- NOTE | 2020-05-04 12:36 | NUR ---
PATIENT HAS BEEN ACCEPTED TO [facility]. PATIENT CAN ADMIT TO [facility] WHEN COVID RESULTS HAVE RETURNED AFTER 05/05/2020. SPLITTING MACHINE FEEDER COMPLETED HENS.
[2020-05-04 13:00] VITALS: BP 100/48
--- NOTE | 2020-05-04 14:47 | NUR ---
MEDICATED WITH NORCO PO PER PRN ORDER, SEE EMAR. FOR C/O LOWER BACK PAIN RATES PAIN 8 ON PAIN SCALE 0-10. CALL LIGHT IN REACH.
--- NOTE | 2020-05-04 15:10 | NUR ---
IV started left antecubital with #24 angiocath after 2 attempts. The IV site was prepped with Chloraprep. Heparin lock attached. Sterile dressing applied. Patient tolerated precedure well. Procedure performed according to [facility] policy & procedure. ESTEFANI OCHOA
--- NOTE | 2020-05-04 15:45 | NUR ---
PT RESTING IN BED. RESP-EASY AND REGULAR. STATES PAIN MEDICATION HELPS. CHRONIC PAIN. CALL LIGHT IN REACH.
--- NOTE | 2020-05-04 16:20 | NUR ---
PT RESTING IN BED. RESP-EASY AND REGULAR. [id number], SEE EMAR. CALL LIGHT IN REACH. SEE SHIFT ASSESSMENT.
[2020-05-04 16:45] VITALS: BP 83/42
--- NOTE | 2020-05-04 18:30 | NUR ---
ESCORTED VIA BED TO 4TH FLOOR.
[2020-05-04 20:00] VITALS: BP 79/50
--- NOTE | 2020-05-04 22:02 | NUR ---
pt request prn pain medication for 7/10 generalized pain
[2020-05-05] VITALS: BP 81/49
--- NOTE | 2020-05-05 02:56 | NUR ---
24 HR chart check completed.
[2020-05-05 06:32] LABS: HEMATOCRIT 27.3 % (37.0-47.0); MEAN CELL VOLUME 84.3 fl (81.0-99.0); MEAN CORPUSCULAR HGB CONC 29.7 g/dl (33.0-37.0); MEAN PLATELET VOLUME 10.4 fl (9.6-12.3); PLATELET COUNT AUTOMATED 108 10*3/uL (130-400); RED BLOOD COUNT 3.24 10*6/uL (4.10-5.10); RED CELL DISTRI WIDTH 20.3 % (0-14.5); WHITE BLOOD COUNT 2.5 10*3/uL (4.8-10.8)
[2020-05-05 06:46] LABS: BUN 10 mg/dl (7-24); CHLORIDE 102 mmol/L (98-107); CREATININE 0.59 mg/dL (0.55-1.02); POTASSIUM 3.7 mmol/L (3.5-5.1); SODIUM 138 mmol/L (136-145)
[2020-05-05 06:50] LABS: INTERNATIONAL NORM RATIO 1.9 (2.0-3.5)
[2020-05-05 07:22] LABS: ATYPICAL LYMPHS 1 % (0-0); PLATELET SUFFICIENCY LOW (NORMAL); POLYCHROMASIA SLIGHT; ROULEAUX SLIGHT; TOTAL CELLS COUNTED 100 #CELLS
[2020-05-05 08:00] VITALS: BP 104/56
--- NOTE | 2020-05-05 11:33 | NUR ---
PT ALERT & ORIENTED X3. O2 DEPENDENT ON 4L NC. POX 95% AT THIS TIME. SCATTERED RHONCHI NOTED T/O LUNGS. MOIST COUGH NOTED. ABD SOFT & NONTENDER. DENIES ANY PAIN. CALL LIGHT IS WITHIN REACH.
[2020-05-05 12:00] VITALS: BP 103/60
--- NOTE | 2020-05-05 13:50 | NUR ---
PT MEDICATED WITH PO NORCO UPON REQUEST FOR COMPLAINTS OF PAIN IN BILATERAL LOWER EXTREMITIES 12/06. WILL MONITOR FOR EFFECTIVENESS.
[2020-05-05 16:00] VITALS: BP 88/55
[2020-05-05 20:00] VITALS: BP 85/54
--- NOTE | 2020-05-05 22:24 | NUR ---
NORCO GIVEN FOR GENERALIZED PAIN RATED 8/10. WILL MONITOR. CALL LIGHT IN REACH.
--- NOTE | 2020-05-05 23:06 | NUR ---
PER PT, NORCO EFFECTIVE, PAIN MORE TOLERABLE AT THIS TIME. RATED 2/10.
[2020-05-06] VITALS: BP 85/43
--- NOTE | 2020-05-06 01:46 | NUR ---
24HR CHART CHECK COMPLETED
--- NOTE | 2020-05-06 04:31 | NUR ---
[place] given per pt request of generalized pain. Call light within reach. Will monitor.
--- NOTE | 2020-05-06 05:16 | NUR ---
SLEEPING, NORCO SEEMS EFFECTIVE. CALL LIGHT IN REACH. WILL CONTINUE TO MONITOR.
[2020-05-06 07:03] LABS: INTERNATIONAL NORM RATIO 2.6 (2.0-3.5)
[2020-05-06 08:00] VITALS: BP 90/51
--- NOTE | 2020-05-06 08:45 | NUR ---
PT AWAKE/ALERT/ORIENTED X3. I/E WHEEZES NOTED T/O LUNGS PT ON 3L NC. POX 99%. TRACE EDEMA VS OBESITY. MEDICATIONS TAKEN WITHOUT DIFFICULTY. DENIES ANY NEEDS. CALL LIGHT WITHIN REACH.
[2020-05-06 12:00] VITALS: BP 95/58
--- NOTE | 2020-05-06 14:30 | NUR ---
CALLED TO ROOM AT THIS TIME - PT'S IV ANTIBIOTIC AZITHROMYCIN INFILTRATED TO LEFT UPPER ARM. PT IS IN A LOT FO PAIN. MEDICATED WITH PO NORCO PER ORDER. K-PAD GIVEN TO APPLY TO UPPER ARM. NOTIFIED AND ORDER OBTAINED FOR LIDOCAINE GEL.
[2020-05-06 16:00] VITALS: BP 101/52; BP 152/79
--- NOTE | 2020-05-06 19:25 | NUR ---
24 HR CHART CHECK COMPLETE.
[2020-05-06 20:00] VITALS: BP 93/60
[2020-05-07] VITALS (9 sets, daily range): BP systolic 80–120; BP diastolic 51–66
[2020-05-07 05:59] LABS: ALBUMIN 2.7 gm/dl (3.1-4.5); ALKALINE PHOSPHATASE 91 U/L (45-117); BUN 7 mg/dl (7-24); CHLORIDE 103 mmol/L (98-107); CREATININE 0.55 mg/dL (0.55-1.02); POTASSIUM 3.7 mmol/L (3.5-5.1); SGOT/AST 16 IU/L (3-35); SGPT/ALT 21 U/L (12-78); SODIUM 140 mmol/L (136-145); TOTAL PROTEIN 6.3 gm/dL (6.4-8.2)
[2020-05-07 06:06] LABS: HEMATOCRIT 26.3 % (37.0-47.0); MEAN CORPUSCULAR HGB 25.2 pg (27.0-31.0); MEAN PLATELET VOLUME 10.5 fl (9.6-12.3); PLATELET COUNT AUTOMATED 125 10*3/uL (130-400); RED BLOOD COUNT 3.13 10*6/uL (4.10-5.10); RED CELL DISTRI WIDTH 20.3 % (0-14.5); WHITE BLOOD COUNT 2.1 10*3/uL (4.8-10.8)
[2020-05-07 06:11] LABS: INTERNATIONAL NORM RATIO 2.8 (2.0-3.5)
--- NOTE | 2020-05-07 07:30 | NUR ---
PT RESTING IN BED. VOICES NO CONCERNS AT THIS TIME. RESPS EASY AND NONLABORED. NO S/S OF DISTRESS NOTED. VSS. WHITE BOARD UPDATED. POC DISCUSSED W PT. A/O X3. 3L NC DEP.WHEEZES NOTED. NONPRODUCTIVE COUGH. SOB W EXERTION. REMAINS ST ON MONITOR. LOW 100'S. WILL CONTINUE TO MONITOR. CALL LIGHT WITHIN REACH.
[2020-05-07 07:34] LABS: BASOPHILS 1 % (0-1); OVALOCYTES FEW; PLATELET SUFFICIENCY LOW (NORMAL); SCHISTOCYTES FEW; TOTAL CELLS COUNTED 100 #CELLS
[2020-05-07 07:35] LABS: ROULEAUX SLIGHT
--- NOTE | 2020-05-07 07:51 | NUR ---
PT TAKEN OFF FLOOR FOR [facility]
--- NOTE | 2020-05-07 07:58 | NUR ---
[facility] Patient is getting a bronch done this morning. [facility] and is ok to go when medically stable for discharge.
--- NOTE | 2020-05-07 09:00 | NUR ---
CM in to see patient. She is currently not in her room. She is having a bronchoscopy. Will follow up at a later time. She has been accepted at [facility] and can go when medically stable. COVID negative. product planner following.
[2020-05-07 11:51] LABS: BF LYMPHOCYTES 10 %; BF NEUTROPHILS 89 %
--- NOTE | 2020-05-07 12:00 | NUR ---
PT BACK FROM SURGERY. RESPS EASY AND NON LABORED. NO S/S OF DISTRESS NOTED. VSS. CALL LIGHT WITHIN REACH. RESTING IN BED WATCHING TV
--- NOTE | 2020-05-07 13:46 | NUR ---
CM in to see patient. Discussed short term rehab and she is hesitantly agreeable. She states "I'm only going for a week." CM will continue to follow for any discharge planning needs.
--- NOTE | 2020-05-07 14:25 | NUR ---
DR NICHOLE INTO SEE PT
--- NOTE | 2020-05-07 14:37 | NUR ---
Patient resting quietly with no c/o discomfort. Respirations easy and regular. Vital signs stable. No overt distress. HISSOM,NANETTE
[2020-05-07 15:04] LABS: INTERNATIONAL NORM RATIO 2.5 (2.0-3.5)
--- NOTE | 2020-05-07 15:54 | NUR ---
DR NICHOLE MADE AWARE PTS HEART RATE 130'S. NO NEW ORDERS AT THIS TIME. PT TACHY W EXERTION. ASYMPTOMATIC.
--- NOTE | 2020-05-07 17:56 | NUR ---
PT C/O 610 ACHING BACK PAIN.MEDICATED PER ORDER. WILL MONITOR FOR RELIEF. RESPS EASY AND NONLABORED. SITTING IN BED WATCHING TV.C ALL LIGHT WITHIN REACH.
--- NOTE | 2020-05-07 18:45 | NUR ---
MEDICATION EFFECTIVE PER PT
[2020-05-08] VITALS: BP 98/50
--- NOTE | 2020-05-08 00:27 | NUR ---
PATIENT MEDICATED WITH NORCO FOR C/O GENERALIZED PAIN 01/05. WILL MONITOR
--- NOTE | 2020-05-08 01:27 | NUR ---
[place] EFFECTIVE
[2020-05-08 06:26] LABS: BASO % 0.3 % (0.0-1.0); EOS % 1.2 % (1.0-4.0); HEMATOCRIT 26.1 % (37.0-47.0); LYMPH # 0.5 10*3/uL (1.3-4.4); LYMPH % 14.8 % (27.0-41.0); MEAN CELL VOLUME 83.7 fl (81.0-99.0); MEAN CORPUSCULAR HGB 25.3 pg (27.0-31.0); MEAN CORPUSCULAR HGB CONC 30.3 g/dl (33.0-37.0); MEAN PLATELET VOLUME 10.8 fl (9.6-12.3); MONO # 0.3 10*3/uL (0.1-1.0); MONO % 9.6 % (3.0-9.0); NEUT # 2.4 10*3/uL (2.3-7.9); NEUT % 72.9 % (47.0-73.0); PLATELET COUNT AUTOMATED 138 10*3/uL (130-400); RED BLOOD COUNT 3.12 10*6/uL (4.10-5.10); RED CELL DISTRI WIDTH 20.7 % (0-14.5); WHITE BLOOD COUNT 3.2 10*3/uL (4.8-10.8)
[2020-05-08 06:59] LABS: ALBUMIN 2.7 gm/dl (3.1-4.5); BUN 8 mg/dl (7-24); CHLORIDE 103 mmol/L (98-107); POTASSIUM 3.6 mmol/L (3.5-5.1); SGOT/AST 12 IU/L (3-35); SGPT/ALT 20 U/L (12-78); SODIUM 138 mmol/L (136-145)
--- NOTE | 2020-05-08 07:00 | NUR ---
ARRIVED ON SHIFT, REPORT RECEIVED FROM OFFGOING NURSE, ASSUMED CARE OF PATIENT.
[2020-05-08 07:02] LABS: INTERNATIONAL NORM RATIO 2.4 (2.0-3.5)
[2020-05-08 07:04] LABS: ALKALINE PHOSPHATASE 88 U/L (45-117); CREATININE 0.52 mg/dL (0.55-1.02); TOTAL PROTEIN 6.2 gm/dL (6.4-8.2)
--- NOTE | 2020-05-08 07:30 | NUR ---
INTRODUCED SELF TO PATIENT, BED IN LOW POSITION, WHEEL LOCKS ENGAGED, SIDE RAILS UP X 2 FOR TURNING AND REPOSITIONING, CALL LIGHT WITHIN REACH, NO NEEDS VOICED AT THIS TIME, WHITE BOARD UPDATED.
[2020-05-08 08:00] VITALS: BP 118/62
--- NOTE | 2020-05-08 08:26 | NUR ---
PATIENT C/O LOWER BACK PAIN, RATES PAIN 8/10, DESCRIBES A SEVERE ACHE, WHICH IS CHRONIC, MEDICATED WITH NORCO ORDERED PRN, UPDATED WHITE BOARD WITH NEXT AVAILABLE DOSE.
[2020-05-08] MEDS ORDERED: DOXYCYCLINE100 M3 PO (08:31)
[2020-05-08] MEDS ORDERED: PREDNISONE5 MG PO (08:31)
[2020-05-08] MEDS ORDERED: Ipratropium Brom3 ML NEB (08:31)
[2020-05-08] MEDS ORDERED: REVATIO20 MG PO (08:31)
[2020-05-08] MEDS ORDERED: CARDIZEM CD120 M2 PO (08:31)
[2020-05-08] MEDS ORDERED: KLOR-CON M2020 ME1 PO (08:37)
--- NOTE | 2020-05-08 08:45 | NUR ---
PHYSICAL THERAPY Patient seen this am 1:1 for therapy visit and was relaxing supine in bed upon therapist arrival. Patient identified by name / and presented with contiuos O2-3L via NC while recording resting SpO2 92%, HR 105 bpm. Patient c/o's of feeling generalized muscle weakness, no pain and tranfers supine to sit EOB with Min A x 1. Patient tolerated several minutes static EOB sit to collect herself, then performed seated B LE therex, all planes, 2 x 10, AROM, to increase LE strength. Patient stated she did not feel safe attempting to stand this session due to feeling too weak and returned to supine in bed, MIN A x 1. Patient remained in bed with call light, tray table and telephone. Will continue per POC as tolerated, total treatment time 17 minutes. Idris Moon, INSTRUCTIONAL TECHNOLOGY INSTRUCTOR
--- NOTE | 2020-05-08 08:54 | NUR ---
Patient is discharged to [facility] at 11:30 am via [place]. NH, nursing/ward nurse and patients sister all notified.
--- NOTE | 2020-05-08 09:20 | NUR ---
PATIENT REPORTS GOOD RELIEF FROM NORCO GIVEN X 1 HOUR AGO, CURRENT PAIN 4 OUT OF 10, PER PATIENT THIS IS HER TOLERABLE PAIN LEVEL.
--- NOTE | 2020-05-08 11:00 | NUR ---
Shift chart check completed.
--- NOTE | 2020-05-08 11:42 | NUR ---
Discharge instructions reviewed with patient. Patient receptive and verbalizes understanding. [facility] Written instructions given TO PATIENT WELL COPY TO RECEIVING FACILITY, IV REMOVED, TELEMETRY UNIT REMOVED, TAKEN OUT [facility] BY [facility], NURSE TO NURSE GIVEN TO [place]. AUSTIN GALEANO
[2020-05-08 14:08] LABS: ACID FAST SPEC PROCESSING Concentration (.)
[2020-05-08 14:08] LABS: ACID FAST SPEC PROCESSING Concentration (.)
--- NOTE | 2020-05-09 07:44 | NUR ---
PHYSICAL THERAPY CO-SIGN I approve of the Physical Therapy notes written above. Leisa Zuñiga PT
--- NOTE | 2020-05-09 07:44 | NUR ---
PHYSICAL THERAPY CO-SIGN I approve of the Physical Therapy notes written above. Leisa Zuñiga PT
[2020-07-04 10:11] LABS: ACID FAST CULTURE Negative (.)
[2020-07-04 10:11] LABS: ACID FAST CULTURE Negative (.)
[2020-07-06 09:09] LABS: ORGANISM ID, MOLD Final report (.)
== END 2020-05-08 11:42 | disposition other institution (70) | DRG 190 ==
LOC: ED 14:13 → EDHOLD 16:41 → 4E 16:41 → 5E 16:41 → 4E 05-04 17:59
PROVIDERS: Emergency Medicine; Internal Medicine; Internal Medicine Critical Care Medicine; ADMIT Internal Medicine; ATTEND Internal Medicine
PROC: 0BC18ZZ Extirpation of Matter from Trachea, Via Natural or Artificial Opening Endoscopic (ICD-10-PCS; principal; 2020-05-07)
PROC: 0BC98ZZ Extirpation of Matter from Lingula Bronchus, Via Natural or Artificial Opening Endoscopic (ICD-10-PCS; 2020-05-07)
PROC: 0BC48ZZ Extirpation of Matter from Right Upper Lobe Bronchus, Via Natural or Artificial Opening Endoscopic (ICD-10-PCS; 2020-05-07)
PROC: 0BC88ZZ Extirpation of Matter from Left Upper Lobe Bronchus, Via Natural or Artificial Opening Endoscopic (ICD-10-PCS; 2020-05-07)
PROC: 0BC58ZZ Extirpation of Matter from Right Middle Lobe Bronchus, Via Natural or Artificial Opening Endoscopic (ICD-10-PCS; 2020-05-07)
PROC: 0BC38ZZ Extirpation of Matter from Right Main Bronchus, Via Natural or Artificial Opening Endoscopic (ICD-10-PCS; 2020-05-07)
PROC: 0BC78ZZ Extirpation of Matter from Left Main Bronchus, Via Natural or Artificial Opening Endoscopic (ICD-10-PCS; 2020-05-07)
PROC: 0BC68ZZ Extirpation of Matter from Right Lower Lobe Bronchus, Via Natural or Artificial Opening Endoscopic (ICD-10-PCS; 2020-05-07)
PROC: 0BCB8ZZ Extirpation of Matter from Left Lower Lobe Bronchus, Via Natural or Artificial Opening Endoscopic (ICD-10-PCS; 2020-05-07)
PROC: 0B9J8ZX Drainage of Left Lower Lung Lobe, Via Natural or Artificial Opening Endoscopic, Diagnostic (ICD-10-PCS; 2020-05-07)
DX: J44.0 Chronic obstructive pulmonary disease with (acute) lower respiratory infection (principal); J18.9 Pneumonia, unspecified organism; I50.32 Chronic diastolic (congestive) heart failure; I48.21 Permanent atrial fibrillation; J96.11 Chronic respiratory failure with hypoxia; J98.11 Atelectasis; D61.818 Other pancytopenia; T17.590A Other foreign object in bronchus causing asphyxiation, initial encounter; D68.51 Activated protein C resistance; J44.1 Chronic obstructive pulmonary disease with (acute) exacerbation; Z20.828 Contact with and (suspected) exposure to other viral communicable diseases; E87.6 Hypokalemia; G89.29 Other chronic pain; M54.5 Low back pain; M16.0 Bilateral primary osteoarthritis of hip; F41.1 Generalized anxiety disorder; E11.9 Type 2 diabetes mellitus without complications; R62.7 Adult failure to thrive; I27.20 Pulmonary hypertension, unspecified; J45.50 Severe persistent asthma, uncomplicated; G25.81 Restless legs syndrome; E66.01 Morbid (severe) obesity due to excess calories; I11.0 Hypertensive heart disease with heart failure; Z96.651 Presence of right artificial knee joint; Z79.01 Long term (current) use of anticoagulants; Z88.2 Allergy status to sulfonamides; Z88.8 Allergy status to other drugs, medicaments and biological substances; Z82.49 Family history of ischemic heart disease and other diseases of the circulatory system; Z83.3 Family history of diabetes mellitus; X58.XXXA Exposure to other specified factors, initial encounter; Y93.89 Activity, other specified; Y92.89 Other specified places as the place of occurrence of the external cause; Y99.8 Other external cause status; Q96.9 Turner's syndrome, unspecified; Z68.39 Body mass index [BMI] 39.0-39.9, adult

== ENCOUNTER 2020-05-16 23:09 | Inpatient (IN) | payer MEDICARE, OTHER ==
[~2020-05-16] VITALS: Ht 144.7 cm; Wt 77.8 kg
[~2020-05-16 23:09] MED LIST changes: +CARDIZEM CD120 M2 PO; +Ipratropium Brom3 ML NEB; +KLOR-CON M2020 ME1 PO; +REVATIO20 MG PO
[2020-05-16 23:13] VITALS: BP 89/50
[2020-05-16 23:45] LABS: BASO % 0.5 % (0.0-1.0); EOS % 0.3 % (1.0-4.0); HEMATOCRIT 30.4 % (37.0-47.0); LYMPH # 0.8 10*3/uL (1.3-4.4); LYMPH % 13.6 % (27.0-41.0); MEAN CELL VOLUME 84.9 fl (81.0-99.0); MEAN CORPUSCULAR HGB 25.1 pg (27.0-31.0); MEAN CORPUSCULAR HGB CONC 29.6 g/dl (33.0-37.0); MEAN PLATELET VOLUME 10.1 fl (9.6-12.3); MONO # 0.4 10*3/uL (0.1-1.0); MONO % 7.3 % (3.0-9.0); NEUT # 4.5 10*3/uL (2.3-7.9); NEUT % 76.1 % (47.0-73.0); PLATELET COUNT AUTOMATED 185 10*3/uL (130-400); RED BLOOD COUNT 3.58 10*6/uL (4.10-5.10); RED CELL DISTRI WIDTH 20.4 % (0-14.5); WHITE BLOOD COUNT 5.9 10*3/uL (4.8-10.8)
[2020-05-17 00:09] LABS: ACT PARTIAL THROMBO TIME 30.4 SECONDS (20.0-32.1); INTERNATIONAL NORM RATIO 2.2 (2.0-3.5)
[2020-05-17 00:10] LABS: ALBUMIN 3.5 gm/dl (3.1-4.5); ALKALINE PHOSPHATASE 87 U/L (45-117); BUN 21 mg/dl (7-24); CHLORIDE 101 mmol/L (98-107); CREATININE 0.86 mg/dL (0.55-1.02); POTASSIUM 3.2 mmol/L (3.5-5.1); SGOT/AST 9 IU/L (3-35); SGPT/ALT 15 U/L (12-78); SODIUM 139 mmol/L (136-145); TOTAL PROTEIN 7.3 gm/dL (6.4-8.2)
[2020-05-17 00:11] LABS: TROPONIN I < 0.015 ng/ml (<0.045)
[2020-05-17 09:47] VITALS: BP 119/73
[2020-05-17 10:12] VITALS: BP 109/56
[2020-05-17 20:10] VITALS: BP 77/43
[2020-05-18] VITALS: BP 90/35
[2020-05-18 07:03] LABS: HEMATOCRIT 27.8 % (37.0-47.0); MEAN CELL VOLUME 82.5 fl (81.0-99.0); MEAN CORPUSCULAR HGB 24.9 pg (27.0-31.0); MEAN CORPUSCULAR HGB CONC 30.2 g/dl (33.0-37.0); MEAN PLATELET VOLUME 10.6 fl (9.6-12.3); PLATELET COUNT AUTOMATED 169 10*3/uL (130-400); RED BLOOD COUNT 3.37 10*6/uL (4.10-5.10); RED CELL DISTRI WIDTH 19.9 % (0-14.5); WHITE BLOOD COUNT 3.8 10*3/uL (4.8-10.8)
[2020-05-18 07:15] LABS: INTERNATIONAL NORM RATIO 1.7 (2.0-3.5)
[2020-05-18 07:29] LABS: BUN 16 mg/dl (7-24); CHLORIDE 100 mmol/L (98-107); POTASSIUM 3.4 mmol/L (3.5-5.1); SODIUM 136 mmol/L (136-145); TOTAL CELLS COUNTED 100 #CELLS
[2020-05-18 07:30] LABS: PLATELET SUFFICIENCY NORMAL (NORMAL)
[2020-05-18 12:00] VITALS: BP 95/42
[2020-05-18 20:00] VITALS: BP 153/68; BP 97/50
[2020-05-19] VITALS: BP 95/53
[2020-05-19 07:09] LABS: INTERNATIONAL NORM RATIO 1.7 (2.0-3.5)
[2020-05-19 08:00] VITALS: BP 112/48
[2020-05-19 12:00] VITALS: BP 108/50
[2020-05-19 16:00] VITALS: BP 115/78
[2020-05-19 20:00] VITALS: BP 95/45
[2020-05-20] VITALS: BP 98/44
[2020-05-20 04:44] VITALS: BP 101/42
[2020-05-20 06:42] LABS: ACT PARTIAL THROMBO TIME 23.9 SECONDS (20.0-32.1); INTERNATIONAL NORM RATIO 1.7 (2.0-3.5)
[2020-05-20 08:00] VITALS: BP 119/62
[2020-05-20 12:00] VITALS: BP 103/56
[2020-05-20 16:00] VITALS: BP 104/50
[2020-05-20 20:00] VITALS: BP 101/57
[2020-05-21] VITALS: BP 114/58
[2020-05-21 06:23] LABS: INTERNATIONAL NORM RATIO 2.3 (2.0-3.5)
[2020-05-21 08:00] VITALS: BP 126/73
[2020-05-21 12:00] VITALS: BP 113/51
[2020-05-21] MEDS ORDERED: AUGMENTIN 875-875 MG PO ×2 (15:25)
== END 2020-05-21 16:29 | disposition home health service (06) | DRG 189 ==
LOC: ED 23:09 → EDHOLD 05-17 01:18 → 5E 05-17 01:18 → EDHOLD 05-17 10:41 → 5E 05-17 17:52
PROVIDERS: Internal Medicine; ADMIT Internal Medicine; ATTEND Internal Medicine
DX: J96.22 Acute and chronic respiratory failure with hypercapnia (principal); J16.8 Pneumonia due to other specified infectious organisms; J44.1 Chronic obstructive pulmonary disease with (acute) exacerbation; D61.818 Other pancytopenia; I50.32 Chronic diastolic (congestive) heart failure; D68.51 Activated protein C resistance; J44.0 Chronic obstructive pulmonary disease with (acute) lower respiratory infection; I27.20 Pulmonary hypertension, unspecified; G89.4 Chronic pain syndrome; F41.1 Generalized anxiety disorder; M16.0 Bilateral primary osteoarthritis of hip; M47.816 Spondylosis without myelopathy or radiculopathy, lumbar region; I11.0 Hypertensive heart disease with heart failure; G25.81 Restless legs syndrome; E78.2 Mixed hyperlipidemia; E66.9 Obesity, unspecified; E11.65 Type 2 diabetes mellitus with hyperglycemia; T38.0X5A Adverse effect of glucocorticoids and synthetic analogues, initial encounter; K21.00 Gastro-esophageal reflux disease with esophagitis, without bleeding; Z99.81 Dependence on supplemental oxygen; Q96.9 Turner's syndrome, unspecified; Z88.2 Allergy status to sulfonamides; Z88.8 Allergy status to other drugs, medicaments and biological substances; I25.2 Old myocardial infarction; Z86.711 Personal history of pulmonary embolism; Z87.01 Personal history of pneumonia (recurrent); Z86.718 Personal history of other venous thrombosis and embolism; Z83.3 Family history of diabetes mellitus; Z82.49 Family history of ischemic heart disease and other diseases of the circulatory system; Z87.891 Personal history of nicotine dependence; Y92.89 Other specified places as the place of occurrence of the external cause; Z68.37 Body mass index [BMI] 37.0-37.9, adult

== ENCOUNTER 2020-06-02 20:44 | Inpatient (IN) | payer MEDICARE ==
[~2020-06-02] VITALS: Ht 144.7 cm; Wt 81.2 kg
[~2020-06-02 20:44] MED LIST changes: +AUGMENTIN 875-875 MG PO
[2020-06-02 21:05] VITALS: BP 110/68
[2020-06-02 21:08] LABS: BASO % 0.2 % (0.0-1.0); EOS % 0.2 % (1.0-4.0); HEMATOCRIT 27.2 % (37.0-47.0); LYMPH # 0.4 10*3/uL (1.3-4.4); LYMPH % 10.5 % (27.0-41.0); MEAN CELL VOLUME 82.4 fl (81.0-99.0); MEAN CORPUSCULAR HGB 24.8 pg (27.0-31.0); MEAN CORPUSCULAR HGB CONC 30.1 g/dl (33.0-37.0); MONO # 0.2 10*3/uL (0.1-1.0); MONO % 5.7 % (3.0-9.0); NEUT # 3.4 10*3/uL (2.3-7.9); NEUT % 81.7 % (47.0-73.0); PLATELET COUNT AUTOMATED 148 10*3/uL (130-400); RED CELL DISTRI WIDTH 20.5 % (0-14.5); WHITE BLOOD COUNT 4.2 10*3/uL (4.8-10.8)
[2020-06-02 21:24] LABS: ACT PARTIAL THROMBO TIME 44.7 SECONDS (20.0-32.1)
[2020-06-02 21:25] LABS: ALBUMIN 3.2 gm/dl (3.1-4.5); ALKALINE PHOSPHATASE 97 U/L (45-117); BUN 10 mg/dl (7-24); CHLORIDE 98 mmol/L (98-107); CREATININE 0.78 mg/dL (0.55-1.02); POTASSIUM 2.9 mmol/L (3.5-5.1); SGOT/AST 9 IU/L (3-35); SGPT/ALT 16 U/L (12-78); SODIUM 136 mmol/L (136-145); TOTAL PROTEIN 7.1 gm/dL (6.4-8.2)
[2020-06-02 21:26] LABS: INTERNATIONAL NORM RATIO 4.7 (2.0-3.5)
[2020-06-02 21:36] LABS: TROPONIN I < 0.015 ng/ml (<0.045)
[2020-06-02 23:32] VITALS: BP 93/37
[2020-06-03] VITALS: BP 118/57; BP 94/52
[2020-06-03] MEDS ORDERED: ZOCOR40 MG PO (00:23)
[2020-06-03] MEDS ORDERED: NATURE'S BLEND F1 MG PO (00:30)
[2020-06-03 06:31] LABS: BUN 8 mg/dl (7-24); CHLORIDE 103 mmol/L (98-107); CREATININE 0.46 mg/dL (0.55-1.02); POTASSIUM 2.9 mmol/L (3.5-5.1); SODIUM 141 mmol/L (136-145)
[2020-06-03 06:46] LABS: INTERNATIONAL NORM RATIO 5.4 (2.0-3.5)
[2020-06-03 08:00] VITALS: BP 108/46; BP 145/80
[2020-06-03 12:00] VITALS: BP 105/58
[2020-06-03 16:00] VITALS: BP 112/68
[2020-06-03 20:00] VITALS: BP 122/69
[2020-06-04] VITALS: BP 103/60
[2020-06-04 06:48] LABS: BUN 8 mg/dl (7-24); CHLORIDE 105 mmol/L (98-107); POTASSIUM 3.7 mmol/L (3.5-5.1); SODIUM 140 mmol/L (136-145)
[2020-06-04 07:11] LABS: INTERNATIONAL NORM RATIO 3.2 (2.0-3.5)
[2020-06-04 08:00] VITALS: BP 101/61
[2020-06-04 12:00] VITALS: BP 97/62
[2020-06-04 16:00] VITALS: BP 109/52
[2020-06-04 20:00] VITALS: BP 90/56
[2020-06-05] VITALS: BP 104/52
[2020-06-05 07:08] LABS: INTERNATIONAL NORM RATIO 2.3 (2.0-3.5)
[2020-06-05 07:20] LABS: BUN 16 mg/dl (7-24); CHLORIDE 104 mmol/L (98-107); CREATININE 0.62 mg/dL (0.55-1.02); POTASSIUM 3.8 mmol/L (3.5-5.1); SODIUM 138 mmol/L (136-145)
[2020-06-05 08:00] VITALS: BP 123/71
[2020-06-05 12:00] VITALS: BP 130/67
== END 2020-06-05 13:43 | disposition home health service (06) | DRG 193 ==
LOC: ED 20:44 → 4E 23:06 → EDHOLD 23:06 → 4E 23:37
PROVIDERS: Emergency Medicine; ADMIT Internal Medicine; ATTEND Internal Medicine
DX: J18.1 Lobar pneumonia, unspecified organism (principal); J96.20 Acute and chronic respiratory failure, unspecified whether with hypoxia or hypercapnia; I50.32 Chronic diastolic (congestive) heart failure; J44.1 Chronic obstructive pulmonary disease with (acute) exacerbation; J44.0 Chronic obstructive pulmonary disease with (acute) lower respiratory infection; D61.818 Other pancytopenia; D68.51 Activated protein C resistance; I27.20 Pulmonary hypertension, unspecified; E87.6 Hypokalemia; E11.8 Type 2 diabetes mellitus with unspecified complications; I11.0 Hypertensive heart disease with heart failure; R62.7 Adult failure to thrive; G25.81 Restless legs syndrome; T45.515A Adverse effect of anticoagulants, initial encounter; F41.1 Generalized anxiety disorder; M16.0 Bilateral primary osteoarthritis of hip; M47.816 Spondylosis without myelopathy or radiculopathy, lumbar region; Z99.81 Dependence on supplemental oxygen; Z88.2 Allergy status to sulfonamides; Y92.89 Other specified places as the place of occurrence of the external cause; Q96.9 Turner's syndrome, unspecified; Z88.8 Allergy status to other drugs, medicaments and biological substances; Z82.49 Family history of ischemic heart disease and other diseases of the circulatory system; Z83.3 Family history of diabetes mellitus

== ENCOUNTER 2020-06-15 19:46 | Inpatient (IN) | payer MEDICARE ==
[~2020-06-15] VITALS: Ht 144.7 cm; Wt 78.0 kg
[~2020-06-15 19:46] MED LIST changes: +NATURE'S BLEND F1 MG PO; +ZOCOR40 MG PO
[2020-06-15 19:50] VITALS: BP 100/60
[2020-06-15 20:53] LABS: BASO % 0.3 % (0.0-1.0); EOS % 0.3 % (1.0-4.0); HEMATOCRIT 25.1 % (37.0-47.0); LYMPH # 0.4 10*3/uL (1.3-4.4); LYMPH % 10.2 % (27.0-41.0); MEAN CELL VOLUME 82.6 fl (81.0-99.0); MEAN CORPUSCULAR HGB CONC 29.1 g/dl (33.0-37.0); MEAN PLATELET VOLUME 9.7 fl (9.6-12.3); MONO # 0.2 10*3/uL (0.1-1.0); MONO % 5.1 % (3.0-9.0); NEUT # 3.1 10*3/uL (2.3-7.9); NEUT % 82.8 % (47.0-73.0); PLATELET COUNT AUTOMATED 164 10*3/uL (130-400); RED BLOOD COUNT 3.04 10*6/uL (4.10-5.10); RED CELL DISTRI WIDTH 19.8 % (0-14.5); WHITE BLOOD COUNT 3.7 10*3/uL (4.8-10.8)
[2020-06-15 21:24] LABS: ALKALINE PHOSPHATASE 86 U/L (45-117); BUN 13 mg/dl (7-24); CHLORIDE 105 mmol/L (98-107); CREATININE 0.62 mg/dL (0.55-1.02); POTASSIUM 3.8 mmol/L (3.5-5.1); SGOT/AST 6 IU/L (3-35); SGPT/ALT 14 U/L (12-78); SODIUM 138 mmol/L (136-145); TOTAL PROTEIN 6.8 gm/dL (6.4-8.2)
[2020-06-15 21:25] LABS: TROPONIN I < 0.015 ng/ml (<0.045)
[2020-06-15] MEDS ORDERED: HYDROCODONE-AC1 EAC2 PO (21:34)
[2020-06-15] MEDS ORDERED: ROPINIROLE HCL8 MG PO (21:35)
[2020-06-15] MEDS ORDERED: LISINOPRIL10 M1 PO (21:35)
[2020-06-15] MEDS ORDERED: DALI500T PO (21:36)
[2020-06-15] MEDS ORDERED: COREG6.25 MG PO (21:39)
[2020-06-15] MEDS ORDERED: DOXYCYCLINE100 M3 PO (21:40)
[2020-06-15 22:10] VITALS: BP 105/70
--- NOTE | 2020-06-15 22:30 | NUR ---
CLEANED PATIENT UP AND APPLIED NEW BRIEF.
--- NOTE | 2020-06-15 23:44 | NUR ---
PATIENT RESTING IN BED WITH EYES CLOSED. RR EASY AND NON-LABORED. CALL LIGHT WITHIN REACH. APPEARS TO BE IN NO DISTRESS.
[2020-06-16] VITALS (8 sets, daily range): BP systolic 96–112; BP diastolic 50–62
--- NOTE | 2020-06-16 00:33 | NUR ---
PATIENT RESTING IN BED WITH EYES CLOSED. RR EASY AND NON-LABORED. CALL LIGHT WITHIN REACH. APPEARS TO BE IN NO DISTRESS AT THIS TIME.
--- NOTE | 2020-06-16 02:27 | NUR ---
PATIENT RESTING IN BED WITH EYES CLOSED. RR EASY AND NON-LABORED. CALL LIGHT WITHIN REACH. PATIENT APPEARS TO BE IN NO DISTRESS AT THIS TIME. PUT PATIENT ON BED DUMONT, PATIENT VOIDED. PATIENT IS COMFORTABLE AT THIS TIME WITH NO COMPLAINTS.
--- NOTE | 2020-06-16 03:00 | NUR ---
PATIENT IS C/O BACK PAIN AT THIS TIME. CALLED RESIDENT. RESIDENT WILL PUT IN ORDERS TO PAIN. PATIENT RATES PAIN IN BACK AT A 9/10.
[2020-06-16 05:59] LABS: BUN 11 mg/dl (7-24); CHLORIDE 106 mmol/L (98-107); CHOLESTEROL 179 mg/dL (<200); CREATININE 0.47 mg/dL (0.55-1.02); LDH 211 U/L (84-246); POTASSIUM 3.9 mmol/L (3.5-5.1); SGOT/AST 11 IU/L (3-35); SGPT/ALT 17 U/L (12-78); SODIUM 137 mmol/L (136-145); TRIGLYCERIDES 163 mg/dl (<150); VLDL CHOLESTEROL 33 mg/dL (6-40)
[2020-06-16 06:07] LABS: ALKALINE PHOSPHATASE 83 U/L (45-117); FREE T4 0.93 ng/dl (0.76-1.46); HDL CHOLESTEROL 63 mg/dl (40-60); LDL CHOLESTEROL 83 mg/dL (9-159); THYROID STIM HORMONE (HS) 0.553 uIU/ml (0.358-4.75); TOTAL PROTEIN 6.7 gm/dL (6.4-8.2)
[2020-06-16 06:13] LABS: MEAN CELL VOLUME 84.2 fl (81.0-99.0); MEAN CORPUSCULAR HGB 24.2 pg (27.0-31.0); MEAN CORPUSCULAR HGB CONC 28.8 g/dl (33.0-37.0); MEAN PLATELET VOLUME 10.5 fl (9.6-12.3); PLATELET COUNT AUTOMATED 155 10*3/uL (130-400); RED BLOOD COUNT 2.97 10*6/uL (4.10-5.10); RED CELL DISTRI WIDTH 19.6 % (0-14.5); WHITE BLOOD COUNT 5.5 10*3/uL (4.8-10.8)
--- NOTE | 2020-06-16 06:39 | NUR ---
CONSULTED DR. JOSEPH. DR. JOSEPH ASKED THIS RN TO ORDER A RAPID COVID-19 SWAB FOR PATIENT.
--- NOTE | 2020-06-16 06:49 | NUR ---
CONSULTED DR. CHOUDHURY.
--- NOTE | 2020-06-16 07:50 | NUR ---
CALLED 4E. NO ANSWER. WILL CALL AGAIN.
--- NOTE | 2020-06-16 08:11 | NUR ---
CALLED 4E AGAIN WHO REPORTS THEY WILL CALL WHEN THE BED IS READY.
--- NOTE | 2020-06-16 08:19 | NUR ---
PT BREAKFAST ORDERED.
--- NOTE | 2020-06-16 08:21 | NUR ---
PT RAPID COVID NEGATIVE.
--- NOTE | 2020-06-16 08:38 | NUR ---
STILL AWAITING 4E TO BE READY FOR PT.
[2020-06-16 08:44] LABS: OVALOCYTES FEW; PLATELET SUFFICIENCY NORMAL (NORMAL); TOTAL CELLS COUNTED 100 #CELLS
--- NOTE | 2020-06-16 08:56 | NUR ---
A 60, admitted to , under the services of ADALI Haney DO with a diagnosis of SUSPECTED COVID 19. Chief complaint is SOB WEAKNESS. Patient arrived via OTHER from ER. Monitor applied. Initial assessment completed. Vital signs taken and recorded. ADALI HANEY DO notified of admission to the unit. Orders received. See assessment for past medical history, medications and allergies. Patient and/or family oriented to unit. [facility] visitation policy reviewed. Clothing/patient valuable form completed. VIDYA JAIN
[2020-06-16 09:11] LABS: ACT PARTIAL THROMBO TIME 28.1 SECONDS (20.0-32.1); INTERNATIONAL NORM RATIO 1.6 (2.0-3.5)
[2020-06-16 09:29] LABS: VITAMIN D, 25-HYDROXY 12.5 ng/mL (30-100)
--- NOTE | 2020-06-16 12:47 | NUR ---
AMPARO GIVEN FOR COMPLAINTS OF CHRONIC BACK PAIN. STATES SHE "JUST CAN'T GET COMFORTABLE". PAIN RATED 8/10. CALL LIGHT IN REACH. WILL MONITOR.
--- NOTE | 2020-06-16 13:35 | NUR ---
PER PT, NORCO SOMEWHAT EFFECTIVE. OFFERED TYLENOL, PT DECLINED. SAID SHE WOULD BE OK FOR NOW. WILL CONTINUE TO MONITOR.
--- NOTE | 2020-06-16 21:54 | NUR ---
AMPARO GIVEN FOR COMPLAINTS OF CHRONIC BACK PAIN. WILL MONITOR. CALL LIGHT IN REACH.
--- NOTE | 2020-06-16 22:46 | NUR ---
PER PT, AMPARO EFFECTIVE. CALL LIGHT IN REACH. NO FURTHER COMPLAINTS.
[2020-06-17] VITALS: BP 94/56
--- NOTE | 2020-06-17 00:55 | NUR ---
AWAKE AND ALERT, ABLE TO FOLLOW DIRECTIONS. O2 NC 3L. C/O SHORTNESS OF BREATH, NON LABORED. HOB ELEVATED. C/O CHRONIC LOWER BACK PAIN. REPOSITONED.
--- NOTE | 2020-06-17 02:20 | NUR ---
PATIENT SLEEPING. AWAKES TO SOUND AND TOUCH. O2 NC OFF AND REAPPLIED NC 3L.
--- NOTE | 2020-06-17 04:46 | NUR ---
PATIENT AWAKE, REAPPLIED NC 3L AND PULSE OX MONITOR. BREATHING EASY. HOB ELEVATED.
[2020-06-17 06:23] LABS: HEMATOCRIT 24.7 % (37.0-47.0); LYMPH # 0.4 10*3/uL (1.3-4.4); MEAN CELL VOLUME 82.3 fl (81.0-99.0); MEAN CORPUSCULAR HGB 23.7 pg (27.0-31.0); MEAN CORPUSCULAR HGB CONC 28.7 g/dl (33.0-37.0); MEAN PLATELET VOLUME 10.2 fl (9.6-12.3); MONO # 0.2 10*3/uL (0.1-1.0); MONO % 8.9 % (3.0-9.0); NEUT % 75.9 % (47.0-73.0); PLATELET COUNT AUTOMATED 139 10*3/uL (130-400); RED CELL DISTRI WIDTH 18.9 % (0-14.5); WHITE BLOOD COUNT 2.6 10*3/uL (4.8-10.8)
[2020-06-17 06:39] LABS: ALBUMIN 2.9 gm/dl (3.1-4.5); BUN 13 mg/dl (7-24); CHLORIDE 105 mmol/L (98-107); CREATININE 0.61 mg/dL (0.55-1.02); POTASSIUM 3.5 mmol/L (3.5-5.1); SGOT/AST 14 IU/L (3-35); SGPT/ALT 17 U/L (12-78); SODIUM 139 mmol/L (136-145); TOTAL PROTEIN 6.6 gm/dL (6.4-8.2)
[2020-06-17 06:43] LABS: ALKALINE PHOSPHATASE 78 U/L (45-117); CPK 36 U/L (26-192); LDH 291 U/L (84-246)
[2020-06-17 06:53] LABS: INTERNATIONAL NORM RATIO 1.4 (2.0-3.5)
[2020-06-17 08:00] VITALS: BP 100/54
[2020-06-17 11:16] VITALS: BP 98/50
[2020-06-17 16:00] VITALS: BP 103/50
--- NOTE | 2020-06-17 16:07 | NUR ---
PT SITTING AT SIDE OF BED, RESTING COMFORTABLE. DENIES ANY NEEDS AT THIS TIME. REMAINS ON 3L NC. CALL LIGHT IN REACH.
[2020-06-17 20:00] VITALS: BP 107/58
[2020-06-18] VITALS: BP 95/49
--- NOTE | 2020-06-18 00:55 | NUR ---
PATIENT ASLEEP, AWAKES EASILY. ABLE TO FOLLOW DIRECTIONS. STATES FEELS BETTER THAN YESTERDAY. 3L NC.
--- NOTE | 2020-06-18 04:00 | NUR ---
PATIENT C/O GENERALIZED BACK PAIN. MEDICATION GIVEN, PATIENT REPOSITIONED SELF.
[2020-06-18 06:50] LABS: HEMATOCRIT 24.6 % (37.0-47.0); LYMPH # 0.7 10*3/uL (1.3-4.4); MEAN CORPUSCULAR HGB 23.7 pg (27.0-31.0); MEAN CORPUSCULAR HGB CONC 28.9 g/dl (33.0-37.0); MEAN PLATELET VOLUME 9.6 fl (9.6-12.3); MONO # 0.3 10*3/uL (0.1-1.0); MONO % 10.8 % (3.0-9.0); NEUT % 64.9 % (47.0-73.0); PLATELET COUNT AUTOMATED 141 10*3/uL (130-400); RED CELL DISTRI WIDTH 19.1 % (0-14.5); WHITE BLOOD COUNT 3.1 10*3/uL (4.8-10.8)
[2020-06-18 07:07] LABS: ALBUMIN 2.9 gm/dl (3.1-4.5); BUN 17 mg/dl (7-24); CHLORIDE 106 mmol/L (98-107); CREATININE 0.63 mg/dL (0.55-1.02); LDH 190 U/L (84-246); POTASSIUM 3.4 mmol/L (3.5-5.1); SGOT/AST 7 IU/L (3-35); SGPT/ALT 17 U/L (12-78); SODIUM 139 mmol/L (136-145); TOTAL PROTEIN 6.1 gm/dL (6.4-8.2)
[2020-06-18 07:08] LABS: ALKALINE PHOSPHATASE 72 U/L (45-117); CPK 17 U/L (26-192)
[2020-06-18 07:58] LABS: INTERNATIONAL NORM RATIO 1.6 (2.0-3.5)
[2020-06-18 08:00] VITALS: BP 109/73
--- NOTE | 2020-06-18 09:09 | NUR ---
Sole Filler spoke to patient via phone. Patient states lives at home with her sister. There are basement steps in the home. Physician: Dr. Oksana Gusman Pharmacy: [facility] health services: currently has [facility] Patient's level of ADLs: MINIMAL ASSIST Patient has working utilities: yes DME: cane, walker, front wheeled walker, wheelchair, shower chair, O2 @ 3L nc, portable O2 tanks, nebulizer, O2 supplier [facility] Follow-up physician's appointment after d/c: will be made by the hospitalist nurse director upon discharge Does patient want to access PORTAL?: no Discharge plan discussed with patient. She lives at home with her sister. She is independent in her ADLs and ambulates with either a cane or a walker or gets around in a wheelchair. Discussed short term SNF and she refuses. Discussed home health care services and she currently has [facility] and would like to resume those services upon discharge. When medically stable she will be discharged to home with the resumption of her [facility]. She states her sister will provide transportation on discharge. LUCINDA GLASS
[2020-06-18 12:00] VITALS: BP 122/68
--- NOTE | 2020-06-18 12:30 | NUR ---
DR CHOUDHURY STATES PATIENT CAN BE DISCHARGED. PT TO BE DISCHARGED ON DECAD[place] FOR [address] ACOSTA NOTIFIED, BUT STATES SHE WILL NOT BE IN UNTILL TOMORROW.
[2020-06-18 16:00] VITALS: BP 92/53
[2020-06-18 20:00] VITALS: BP 99/56
--- NOTE | 2020-06-18 20:10 | NUR ---
MEDICATED WITH PRN TYLENOL FOR C/O BACK PAIN
[2020-06-19] VITALS: BP 105/68
--- NOTE | 2020-06-19 04:12 | NUR ---
C/O LOWER BACK PAIN, RATES PAIN 7 ON PAIN SCALE 0-10. MEDICATED WITH NORCO PO PER PRN ORDER, SEE EMAR. CALL LIGHT IN REACH.
[2020-06-19 06:44] LABS: BASO % 0.3 % (0.0-1.0); EOS % 0.3 % (1.0-4.0); HEMATOCRIT 25.4 % (37.0-47.0); LYMPH # 0.8 10*3/uL (1.3-4.4); MEAN CELL VOLUME 82.2 fl (81.0-99.0); MEAN CORPUSCULAR HGB 23.9 pg (27.0-31.0); MEAN CORPUSCULAR HGB CONC 29.1 g/dl (33.0-37.0); MEAN PLATELET VOLUME 10.6 fl (9.6-12.3); MONO # 0.4 10*3/uL (0.1-1.0); MONO % 10.2 % (3.0-9.0); NEUT # 2.2 10*3/uL (2.3-7.9); NEUT % 63.7 % (47.0-73.0); RED BLOOD COUNT 3.09 10*6/uL (4.10-5.10); RED CELL DISTRI WIDTH 19.2 % (0-14.5); WHITE BLOOD COUNT 3.4 10*3/uL (4.8-10.8)
[2020-06-19 06:58] LABS: ALBUMIN 2.9 gm/dl (3.1-4.5); ALKALINE PHOSPHATASE 72 U/L (45-117); BUN 17 mg/dl (7-24); CHLORIDE 104 mmol/L (98-107); CREATININE 0.62 mg/dL (0.55-1.02); POTASSIUM 3.4 mmol/L (3.5-5.1); SGOT/AST 13 IU/L (3-35); SGPT/ALT 17 U/L (12-78); SODIUM 140 mmol/L (136-145); TOTAL PROTEIN 6.4 gm/dL (6.4-8.2)
--- NOTE | 2020-06-19 07:00 | NUR ---
ARRIVED ON SHIFT, REPORT RECEIVED FROM OFF GOING NURSE, ASSUMED CARE OF PATIENT.
[2020-06-19 07:03] LABS: PLATELET COUNT AUTOMATED 188 10*3/uL (130-400)
[2020-06-19 07:14] LABS: CPK 26 U/L (26-192)
--- NOTE | 2020-06-19 07:55 | NUR ---
Shift chart check completed.
[2020-06-19 08:00] VITALS: BP 114/56
[2020-06-19] MEDS ORDERED: NATURE'S BLEND F1 MG PO (08:32)
[2020-06-19] MEDS ORDERED: VITAMIN D350 MC2 PO (08:32)
[2020-06-19] MEDS ORDERED: OMNICEF300 MG PO (08:32)
--- NOTE | 2020-06-19 08:52 | NUR ---
Faxed home health resumption order to [facility]
--- NOTE | 2020-06-19 11:50 | NUR ---
Discharge instructions reviewed with patient/family. Patient receptive and verbalizes understanding. Follow-up care arranged. Written instructions given to patient/family, IV'S REMOVED. TELEMETRY ACCOUNTED FOR, PATIENT LEFT VIA W/C WITH STAFF ASSISST. AUSTIN GALEANO
== END 2020-06-19 11:50 | disposition home health service (06) | DRG 871 ==
LOC: ED 19:46 → 4E 06-16 01:11 → EDHOLD 06-16 01:11 → 4E 06-16 07:05
PROVIDERS: Emergency Medicine; Hospitalist; Internal Medicine; ADMIT Internal Medicine; ATTEND Internal Medicine
DX: A41.9 Sepsis, unspecified organism (principal); J15.6 Pneumonia due to other Gram-negative bacteria; J96.21 Acute and chronic respiratory failure with hypoxia; D68.2 Hereditary deficiency of other clotting factors; J44.0 Chronic obstructive pulmonary disease with (acute) lower respiratory infection; I50.32 Chronic diastolic (congestive) heart failure; Z20.828 Contact with and (suspected) exposure to other viral communicable diseases; E11.65 Type 2 diabetes mellitus with hyperglycemia; R62.7 Adult failure to thrive; D50.9 Iron deficiency anemia, unspecified; E53.8 Deficiency of other specified B group vitamins; E55.9 Vitamin D deficiency, unspecified; I27.20 Pulmonary hypertension, unspecified; E66.9 Obesity, unspecified; F41.1 Generalized anxiety disorder; G25.81 Restless legs syndrome; M43.00 Spondylolysis, site unspecified; Z79.4 Long term (current) use of insulin; Q96.9 Turner's syndrome, unspecified; Z88.2 Allergy status to sulfonamides; Z82.49 Family history of ischemic heart disease and other diseases of the circulatory system; Z83.3 Family history of diabetes mellitus; Z68.38 Body mass index [BMI] 38.0-38.9, adult

== ENCOUNTER 2020-08-02 08:13 | Inpatient (IN) | payer MEDICARE ==
[~2020-08-02] VITALS: Ht 144.7 cm; Wt 79.6 kg
[~2020-08-02 08:13] MED LIST changes: +COREG6.25 MG PO; +DALI500T PO; +HYDROCODONE-AC1 EAC2 PO; +LISINOPRIL10 M1 PO; +OMNICEF300 MG PO; +ROPINIROLE HCL8 MG PO; +VITAMIN D350 MC2 PO
[2020-08-02 08:38] VITALS: BP 101/50
[2020-08-02 08:54] LABS: BASO % 0.2 % (0.0-1.0); HEMATOCRIT 26.8 % (37.0-47.0); LYMPH # 0.4 10*3/uL (1.3-4.4); LYMPH % 9.3 % (27.0-41.0); MEAN CELL VOLUME 77.9 fl (81.0-99.0); MEAN CORPUSCULAR HGB 21.5 pg (27.0-31.0); MEAN CORPUSCULAR HGB CONC 27.6 g/dl (33.0-37.0); MEAN PLATELET VOLUME 9.6 fl (9.6-12.3); MONO # 0.2 10*3/uL (0.1-1.0); MONO % 4.7 % (3.0-9.0); NEUT # 3.9 10*3/uL (2.3-7.9); NEUT % 84.3 % (47.0-73.0); PLATELET COUNT AUTOMATED 218 10*3/uL (130-400); RED BLOOD COUNT 3.44 10*6/uL (4.10-5.10); RED CELL DISTRI WIDTH 19.5 % (0-14.5); WHITE BLOOD COUNT 4.6 10*3/uL (4.8-10.8)
[2020-08-02 08:58] LABS: ACT PARTIAL THROMBO TIME 32.4 SECONDS (20.0-32.1); INTERNATIONAL NORM RATIO 2.8 (2.0-3.5)
[2020-08-02 09:03] LABS: ALBUMIN 3.3 gm/dl (3.1-4.5); ALKALINE PHOSPHATASE 89 U/L (45-117); BUN 14 mg/dl (7-24); CHLORIDE 99 mmol/L (98-107); CREATININE 0.71 mg/dL (0.55-1.02); POTASSIUM 3.5 mmol/L (3.5-5.1); SGOT/AST 7 IU/L (3-35); SGPT/ALT 14 U/L (12-78); SODIUM 135 mmol/L (136-145); TOTAL PROTEIN 7.4 gm/dL (6.4-8.2)
[2020-08-02 09:08] LABS: TROPONIN I < 0.015 ng/ml (<0.045)
[2020-08-02 12:38] VITALS: BP 100/44
[2020-08-02 20:00] VITALS: BP 92/41
[2020-08-02 21:40] VITALS: BP 100/50
[2020-08-03] VITALS: BP 95/45
[2020-08-03 04:21] LABS: BILIRUBIN Negative (Negative); BLOOD Negative (Negative); CLARITY Cloudy (Clear); COLOR Yellow (Yellow); GLUCOSE Trace (Negative); KETONE Trace (Negative); LEUKO ESTERASE Negative (Negative); NITRITE Negative (Negative); PH 5.5 (4.5-8.0); SPECIFIC GRAVITY >= 1.030 (1.001-1.030)
[2020-08-03 04:40] LABS: CALCIUM OXALATE CRYSTALS 3+; EPITHELIAL CELLS 41-50
[2020-08-03 06:11] LABS: INTERNATIONAL NORM RATIO 2.9 (2.0-3.5)
[2020-08-03 08:00] VITALS: BP 118/68
[2020-08-03 12:00] VITALS: BP 83/57
[2020-08-03 15:14] VITALS: BP 100/62
[2020-08-03 16:00] VITALS: BP 96/40
[2020-08-03 20:00] VITALS: BP 96/60
[2020-08-04] VITALS: BP 96/38
[2020-08-04 00:30] VITALS: BP 100/42
[2020-08-04 08:00] VITALS: BP 90/60
[2020-08-04 12:00] VITALS: BP 100/54
[2020-08-04 17:00] VITALS: BP 88/44
[2020-08-04 20:00] VITALS: BP 92/38
[2020-08-05] VITALS (12 sets, daily range): BP systolic 91–114; BP diastolic 45–79
[2020-08-05 07:01] LABS: BASO % 0.3 % (0.0-1.0); EOS # 0.1 10*3/uL (0.0-0.4); EOS % 1.4 % (1.0-4.0); LYMPH # 0.3 10*3/uL (1.3-4.4); LYMPH % 8.4 % (27.0-41.0); MEAN CELL VOLUME 78.1 fl (81.0-99.0); MEAN CORPUSCULAR HGB 22.5 pg (27.0-31.0); MEAN CORPUSCULAR HGB CONC 28.8 g/dl (33.0-37.0); MEAN PLATELET VOLUME 9.7 fl (9.6-12.3); MONO # 0.3 10*3/uL (0.1-1.0); MONO % 7.8 % (3.0-9.0); NEUT # 2.8 10*3/uL (2.3-7.9); NEUT % 81.2 % (47.0-73.0); PLATELET COUNT AUTOMATED 182 10*3/uL (130-400); RED CELL DISTRI WIDTH 19.7 % (0-14.5); WHITE BLOOD COUNT 3.5 10*3/uL (4.8-10.8)
[2020-08-05 07:25] LABS: BUN 7 mg/dl (7-24); CHLORIDE 102 mmol/L (98-107); CREATININE 0.47 mg/dL (0.55-1.02); POTASSIUM 3.2 mmol/L (3.5-5.1); SODIUM 137 mmol/L (136-145)
[2020-08-05 08:50] LABS: INTERNATIONAL NORM RATIO 3.9 (2.0-3.5)
[2020-08-06] VITALS: BP 102/60
[2020-08-06 06:47] LABS: BASO % 0.6 % (0.0-1.0); EOS # 0.1 10*3/uL (0.0-0.4); EOS % 1.9 % (1.0-4.0); INTERNATIONAL NORM RATIO 3.6 (2.0-3.5); LYMPH # 0.5 10*3/uL (1.3-4.4); LYMPH % 16.5 % (27.0-41.0); MEAN CORPUSCULAR HGB 22.6 pg (27.0-31.0); MEAN CORPUSCULAR HGB CONC 28.2 g/dl (33.0-37.0); MONO # 0.4 10*3/uL (0.1-1.0); MONO % 11.4 % (3.0-9.0); NEUT # 2.2 10*3/uL (2.3-7.9); NEUT % 68.3 % (47.0-73.0); PLATELET COUNT AUTOMATED 184 10*3/uL (130-400); RED CELL DISTRI WIDTH 19.9 % (0-14.5); WHITE BLOOD COUNT 3.2 10*3/uL (4.8-10.8)
[2020-08-06 07:13] LABS: BUN 6 mg/dl (7-24); CHLORIDE 102 mmol/L (98-107); CREATININE 0.42 mg/dL (0.55-1.02); POTASSIUM 3.1 mmol/L (3.5-5.1); SODIUM 139 mmol/L (136-145)
[2020-08-06 08:00] VITALS: BP 103/50
[2020-08-06 12:00] VITALS: BP 93/54
[2020-08-06 16:00] VITALS: BP 93/63
[2020-08-06 20:00] VITALS: BP 86/49
[2020-08-06 21:40] VITALS: BP 100/50
[2020-08-07] VITALS: BP 106/90
[2020-08-07 08:00] VITALS: BP 103/91
[2020-08-07 12:00] VITALS: BP 93/56
== END 2020-08-07 13:35 | disposition home health service (06) | DRG 552 ==
LOC: ED 08:13 → EDHOLD 12:02 → 5E 12:02
PROVIDERS: Emergency Medicine; Internal Medicine; ADMIT Internal Medicine; ATTEND Internal Medicine
PROC: 30233N1 Transfusion of Nonautologous Red Blood Cells into Peripheral Vein, Percutaneous Approach (ICD-10-PCS; principal; 2020-08-05)
DX: S22.088A Other fracture of T11-T12 vertebra, initial encounter for closed fracture (principal); D61.818 Other pancytopenia; D68.51 Activated protein C resistance; R62.7 Adult failure to thrive; J43.9 Emphysema, unspecified; E87.6 Hypokalemia; F41.1 Generalized anxiety disorder; M47.896 Other spondylosis, lumbar region; I95.9 Hypotension, unspecified; M16.0 Bilateral primary osteoarthritis of hip; I27.20 Pulmonary hypertension, unspecified; G25.81 Restless legs syndrome; I10 Essential (primary) hypertension; W19.XXXA Unspecified fall, initial encounter; Z51.5 Encounter for palliative care; Y93.89 Activity, other specified; Q96.9 Turner's syndrome, unspecified; Y99.8 Other external cause status; Z79.01 Long term (current) use of anticoagulants; Z88.2 Allergy status to sulfonamides; Z91.041 Radiographic dye allergy status; I25.2 Old myocardial infarction; Z83.3 Family history of diabetes mellitus; Y92.009 Unspecified place in unspecified non-institutional (private) residence as the place of occurrence of the external cause; Z87.891 Personal history of nicotine dependence; Z86.718 Personal history of other venous thrombosis and embolism; Z86.711 Personal history of pulmonary embolism; Z88.8 Allergy status to other drugs, medicaments and biological substances; Z68.38 Body mass index [BMI] 38.0-38.9, adult

== ENCOUNTER 2020-09-14 18:06 | Inpatient (IN) | payer MEDICARE ==
[~2020-09-14] VITALS: Ht 144.8 cm; Wt 76.4 kg
[2020-09-14 18:08] VITALS: BP 136/48
[2020-09-14 18:37] VITALS: BP 130/51
[2020-09-14 19:00] LABS: BASO % 0.1 % (0.0-1.0); EOS % 0.3 % (1.0-4.0); HEMATOCRIT 28.7 % (37.0-47.0); LYMPH # 0.5 10*3/uL (1.3-4.4); LYMPH % 5.2 % (27.0-41.0); MEAN CELL VOLUME 82.5 fl (81.0-99.0); MEAN CORPUSCULAR HGB 23.6 pg (27.0-31.0); MEAN CORPUSCULAR HGB CONC 28.6 g/dl (33.0-37.0); MONO # 0.6 10*3/uL (0.1-1.0); MONO % 6.1 % (3.0-9.0); NEUT # 8.6 10*3/uL (2.3-7.9); NEUT % 87.8 % (47.0-73.0); PLATELET COUNT AUTOMATED 167 10*3/uL (130-400); RED BLOOD COUNT 3.48 10*6/uL (4.10-5.10); RED CELL DISTRI WIDTH 23.1 % (0-14.5); WHITE BLOOD COUNT 9.7 10*3/uL (4.8-10.8)
[2020-09-14 19:16] LABS: ACT PARTIAL THROMBO TIME 38.4 SECONDS (20.0-32.1); INTERNATIONAL NORM RATIO 3.4 (2.0-3.5)
[2020-09-14 19:17] LABS: ALBUMIN 3.1 gm/dl (3.1-4.5); ALKALINE PHOSPHATASE 82 U/L (45-117); BUN 9 mg/dl (7-24); CHLORIDE 108 mmol/L (98-107); CREATININE 0.56 mg/dL (0.55-1.02); POTASSIUM 4.3 mmol/L (3.5-5.1); SGPT/ALT 10 U/L (12-78); SODIUM 137 mmol/L (136-145)
[2020-09-14 19:21] VITALS: BP 91/58
[2020-09-14 19:28] LABS: SGOT/AST < 3 IU/L (3-35); TROPONIN I < 0.015 ng/ml (<0.045)
[2020-09-14 19:39] LABS: BILIRUBIN Negative (Negative); BLOOD Trace-Lysed (Negative); CLARITY Clear (Clear); COLOR Yellow (Yellow); GLUCOSE 3+ (Negative); KETONE Negative (Negative); LEUKO ESTERASE Negative (Negative); NITRITE Negative (Negative); SPECIFIC GRAVITY 1.025 (1.001-1.030)
[2020-09-14 20:00] LABS: BACTERIA TRACE; RBC 0-2 rbc/hpf (0-2); YEAST 1+
[2020-09-14 20:22] VITALS: BP 106/64
[2020-09-14] MEDS ORDERED: DOXYCYCLINE HY100 M3 PO (22:13)
[2020-09-14] MEDS ORDERED: POTASSIUM CHLO20 ME4 PO (22:15)
[2020-09-14] MEDS ORDERED: CARVEDILOL6.25 MG PO (22:16)
[2020-09-14] MEDS ORDERED: FARXIGA5 M1 PO (22:24)
[2020-09-14] MEDS ORDERED: MYRBETRIQ25 M1 PO (22:32)
[2020-09-14] MEDS ORDERED: SILDENAFIL20 M1 PO (22:34)
[2020-09-14] MEDS ORDERED: PREDNISONE5 MG PO (22:34)
[2020-09-14] MEDS ORDERED: DICYCLOMINE HCL10 MG PO (22:38)
[2020-09-14] MEDS ORDERED: ROPINIROLE HYDRO3 MG PO (22:45)
[2020-09-14] MEDS ORDERED: QUETIAPINE FUM200 M1 PO (22:46)
[2020-09-14] MEDS ORDERED: DILTIAZEM HYDR PO (22:50)
[2020-09-15] VITALS: BP 98/55
[2020-09-15 08:00] VITALS: BP 101/78
[2020-09-15 12:00] VITALS: BP 110/78
[2020-09-15 16:00] VITALS: BP 94/55
[2020-09-15 20:00] VITALS: BP 92/50
[2020-09-16] VITALS: BP 92/51
[2020-09-16 08:00] VITALS: BP 103/51
[2020-09-16 12:00] VITALS: BP 95/50
[2020-09-16 16:00] VITALS: BP 112/48
[2020-09-16 18:22] VITALS: BP 126/69
[2020-09-16 20:00] VITALS: BP 117/68
[2020-09-17] VITALS: BP 114/55
[2020-09-17 06:12] LABS: ALBUMIN 2.6 gm/dl (3.1-4.5); ALKALINE PHOSPHATASE 76 U/L (45-117); BUN 13 mg/dl (7-24); CHLORIDE 104 mmol/L (98-107); CREATININE 0.59 mg/dL (0.55-1.02); SGOT/AST 4 IU/L (3-35); SGPT/ALT 10 U/L (12-78); SODIUM 138 mmol/L (136-145); TOTAL PROTEIN 7.2 gm/dL (6.4-8.2)
[2020-09-17 06:16] LABS: INTERNATIONAL NORM RATIO 1.3 (2.0-3.5)
[2020-09-17 06:23] LABS: HEMATOCRIT 28.2 % (37.0-47.0); MEAN CELL VOLUME 80.6 fl (81.0-99.0); MEAN CORPUSCULAR HGB 22.9 pg (27.0-31.0); MEAN CORPUSCULAR HGB CONC 28.4 g/dl (33.0-37.0); MEAN PLATELET VOLUME 9.9 fl (9.6-12.3); PLATELET COUNT AUTOMATED 224 10*3/uL (130-400); WHITE BLOOD COUNT 6.4 10*3/uL (4.8-10.8)
[2020-09-17 07:51] LABS: OVALOCYTES FEW; TOTAL CELLS COUNTED 100 #CELLS
[2020-09-17 07:52] LABS: MICROCYTOSIS SLIGHT; PLATELET SUFFICIENCY NORMAL (NORMAL); ROULEAUX SLIGHT; SCHISTOCYTES FEW
[2020-09-17 08:00] VITALS: BP 116/59
[2020-09-17 12:00] VITALS: BP 126/66
[2020-09-17 16:00] VITALS: BP 121/59
[2020-09-17 20:00] VITALS: BP 98/53
[2020-09-18] VITALS: BP 108/46
[2020-09-18 08:00] VITALS: BP 102/52
[2020-09-18] MEDS ORDERED: SILDENAFIL20 M1 PO (08:35)
== END 2020-09-18 12:37 | disposition hospice, home (50) | DRG 291 ==
LOC: ED 18:06 → EDHOLD 20:16 → 4E 20:16
PROVIDERS: Emergency Medicine; ADMIT Internal Medicine; ATTEND Internal Medicine
PROC: 5A0945A Assistance with Respiratory Ventilation, 24-96 Consecutive Hours, High Flow/Velocity Cannula (ICD-10-PCS; 2020-09-15)
PROC: 0W9B3ZZ Drainage of Left Pleural Cavity, Percutaneous Approach (ICD-10-PCS; principal; 2020-09-18)
PROC: 5A0935A Assistance with Respiratory Ventilation, Less than 24 Consecutive Hours, High Flow/Velocity Cannula (ICD-10-PCS; 2020-09-18)
DX: I11.0 Hypertensive heart disease with heart failure (principal); I50.31 Acute diastolic (congestive) heart failure; J96.21 Acute and chronic respiratory failure with hypoxia; J91.8 Pleural effusion in other conditions classified elsewhere; J44.9 Chronic obstructive pulmonary disease, unspecified; F41.1 Generalized anxiety disorder; I27.20 Pulmonary hypertension, unspecified; E11.9 Type 2 diabetes mellitus without complications; G25.81 Restless legs syndrome; Z96.659 Presence of unspecified artificial knee joint; Z96.649 Presence of unspecified artificial hip joint; M16.0 Bilateral primary osteoarthritis of hip; I27.81 Cor pulmonale (chronic); R62.7 Adult failure to thrive; G89.29 Other chronic pain; I95.9 Hypotension, unspecified; S71.102A Unspecified open wound, left thigh, initial encounter; Z88.2 Allergy status to sulfonamides; Z88.8 Allergy status to other drugs, medicaments and biological substances; I25.2 Old myocardial infarction; Z87.81 Personal history of (healed) traumatic fracture; Z82.49 Family history of ischemic heart disease and other diseases of the circulatory system; Z79.01 Long term (current) use of anticoagulants; X58.XXXA Exposure to other specified factors, initial encounter; Y93.89 Activity, other specified; Y92.89 Other specified places as the place of occurrence of the external cause; Y99.8 Other external cause status; Z68.39 Body mass index [BMI] 39.0-39.9, adult

== ENCOUNTER 2020-10-04 16:26 | Emergency (ER) | payer MEDICARE ==
[~2020-10-04] VITALS: Ht 144.7 cm; Wt 73.5 kg
[~2020-10-04 16:26] MED LIST changes: +DILTIAZEM HYDR PO; +DOXYCYCLINE HY100 M3 PO; +POTASSIUM CHLO20 ME4 PO; +QUETIAPINE FUM200 M1 PO; +ROPINIROLE HYDRO3 MG PO; +SILDENAFIL20 M1 PO
[2020-10-04 17:25] LABS: HEMATOCRIT 30.9 % (37.0-47.0); MEAN CELL VOLUME 79.2 fl (81.0-99.0); MEAN CORPUSCULAR HGB 22.6 pg (27.0-31.0); MEAN CORPUSCULAR HGB CONC 28.5 g/dl (33.0-37.0); MEAN PLATELET VOLUME 9.7 fl (9.6-12.3); PLATELET COUNT AUTOMATED 236 10*3/uL (130-400); RED CELL DISTRI WIDTH 20.7 % (0-14.5); WHITE BLOOD COUNT 10.1 10*3/uL (4.8-10.8)
[2020-10-04 17:42] LABS: ALBUMIN 2.7 gm/dl (3.1-4.5); ALKALINE PHOSPHATASE 81 U/L (45-117); ATYPICAL LYMPHS 1 % (0-0); BUN 12 mg/dl (7-24); CHLORIDE 102 mmol/L (98-107); CREATININE 0.63 mg/dL (0.55-1.02); POTASSIUM 3.3 mmol/L (3.5-5.1); SGOT/AST 3 IU/L (3-35); SGPT/ALT 12 U/L (12-78); SODIUM 136 mmol/L (136-145); TOTAL CELLS COUNTED 100 #CELLS; TOTAL PROTEIN 7.3 gm/dL (6.4-8.2)
[2020-10-04 17:43] LABS: BURR CELLS FEW; OVALOCYTES FEW; PLATELET SUFFICIENCY NORMAL (NORMAL); TROPONIN I < 0.015 ng/ml (<0.045)
== END 2020-10-04 18:46 | disposition home or self-care (01) ==
LOC: ED 16:26
PROVIDERS: Emergency Medicine
DX: R42 Dizziness and giddiness (principal); Z88.2 Allergy status to sulfonamides; Z88.8 Allergy status to other drugs, medicaments and biological substances; Z79.899 Other long term (current) drug therapy